=== PATIENT | female | born 1990 | race Caucasian/White ===

== ENCOUNTER 2024-01-20 10:39 | Emergency (ER) | payer OTHER, SELFPAY ==
[2024-01-20 10:44] VITALS: BP 110/66; PULSE 81; TEMP 36.8; O2SAT 98; BMI 24.9
[2024-01-20 11:01] LABS: Clarity Urine CLOUDY (CLEAR); Color Urine DK. ORANGE (YELLOW); Specific Gravity Urine 1.025 (1.005-1.025)
--- NOTE | 2024-01-20 11:06 | CT_ITS ---
The [address] [address] Patient Name: ALEKSANDER MATT MRN: [id number] date: 1990 Sex: F Assigned Patient Location: ER Current Patient Location: ER Accession/Order Number: [id number] Exam Date: 01/20/2024 11:25 Report Date: 01/20/2024 11:44 At the request of: SHAILA HERRERA Procedure: CT abdomen pelvis wo con EXAM: CT abdomen pelvis wo con HISTORY: abdomen and flank pain, urinary symptoms COMPARISON: None. TECHNIQUE: Axial soft tissue windows of the abdomen and pelvis with coronal and sagittal reformats. CT dose reduction technique was used including Automated Exposure Control. Findings: Lack of intravenous contrast limits evaluation. ABDOMEN: The liver, gallbladder, spleen, pancreas, and adrenal glands are unremarkable. There are punctate nonobstructing bilateral renal stones. No renal collecting system or ureteral dilatation. The visualized portions of the bilateral ureters are nondilated. Evaluation of the bowel is unremarkable without evidence of wall thickening or obstruction. The appendix is nondilated. The aorta is normal caliber. No enlarged abdominal lymph nodes or free abdominal fluid. Tiny fat-containing umbilicus hernia. Injection granulomas within the anterior subcutaneous fat. Pelvis: There is mild circumferential bladder wall thickening with adjacent stranding of fat. No bladder calculi. The uterus is present and unremarkable within the limits of CT. No enlarged pelvic lymph nodes or free pelvic fluid. No aggressive sclerotic or lytic osseous lesions. CT/CT abdomen pelvis wo con IMPRESSION: 1. Nonobstructing bilateral renal stones. 2. Mild circumferential bladder wall thickening with adjacent stranding of the fat concerning for cystitis. Electronically authenticated by: SCOTT DRAPER Date: 01/20/2024 11:44
[2024-01-20 11:07] LABS: Bilirubin Urine COLOR INTERFERENCE (NEGATIVE); Blood Urine COLOR INTERFERENCE (NEGATIVE); Glucose Urine UA COLOR INTERFERENCE mg/dL (NEGATIVE); Ketones Urine COLOR INTERFERENCE mg/dL (NEGATIVE); Leukocyte Esterase Urine COLOR INTERFERENCE (NEGATIVE); Nitrite Urine COLOR INTERFERENCE (NEGATIVE); Protein Urine COLOR INTERFERENCE mg/dL (NEG/TRACE); Urine Microscopic Indicated YES; Urobilinogen Urine COLOR INTERFERENCE EU/dL (0.2-1.0); pH Urine COLOR INTERFERENCE (5.0-9.0)
--- NOTE | 2024-01-20 11:10 | ED_ITS ---
HPI HPI - General Adult General Chief complaint: Back Pain/Injury Stated complaint: UTI COMPLAINTS Time Seen by Provider: 01/20/24 10:52 Source: patient Mode of arrival: walk-in Limitations: no limitations History of Present Illness HPI narrative: Patient presents with 3+ days of urinary symptoms - frequency, urgency, discolored urine - along with suprapubic abdominal pain. The next day she developed flank pain bilaterally. She also had nausea and vomiting the last two days. This morning she was able to eat and drink without vomiting. But she still has nausea. She has been taking Azo without any improvement. Related Data Previous Rx's ?Medication ?Instructions ?Recorded levofloxacin 750 mg tablet 750 mg PO DAILY 7 days #7 tabs 01/20/24 phenazopyridine 100 mg tablet 100 mg PO Q8H PRN pain 6 doses #6 01/20/24 (Pyridium) tabs Allergies Allergy/AdvReac Type Severity Reaction Status Date / Time Penicillins AdvReac Mild Verified 01/20/24 10:44 Opioid HPI Opioid Management Most Recent Opioid Data: Last Pain Scale 7 01/20/24 11:23 Last MAR Pain Assessment 01/20/24 11:45 Exam Narrative Exam Narrative: Nurses notes and vital signs reviewed and patient is not hypoxic. afebrile General: Well-appearing and in no apparent distress. Skin: Warm, dry, no pallor noted. No rash to flank or abdomen. Eye: Pupils are equal, round and EOMI. No scleral icterus. Ears, Nose, Mouth, and Throat: Oral mucosa is moist Cardiovascular: Regular Rate and Rhythm without murmur, gallop or rub. Respiratory: No accessory muscle use or respiratory distress. Lungs are clear to auscultation, no wheezing, rales or rhonchi Back: No CVA tenderness Musculoskeletal: normal ROM GI: Abdomen is soft, non-distended. Normal bowel sounds. No masses appreciated. Suprapubic tenderness to palpation. No rebound, guarding, or rigidity noted. Neurological: A&O x4. No cranial nerve dysfunction observed. No truncal ataxia. Moves all extremities. Sensation intact. Psychiatric: Cooperative and interactive. Normal mood and affect. Constitutional Vital Signs, click to edit/add: Last Vital Signs Temp 98.2 F 01/20/24 10:44 Pulse 81 01/20/24 10:44 Resp 18 01/20/24 10:44 BP 110/66 01/20/24 10:44 Pulse Ox 98 01/20/24 10:44 Course Vital Signs Vital signs: Vital Signs Temperature 98.2 F 01/20/24 10:44 Pulse Rate 81 01/20/24 10:44 Respiratory Rate 18 01/20/24 10:44 Blood Pressure 110/66 01/20/24 10:44 Pulse Oximetry 98 01/20/24 10:44 Temperature 98.2 F 01/20/24 10:44 Pulse Rate 81 01/20/24 10:44 Respiratory Rate 18 01/20/24 10:44 Blood Pressure 110/66 01/20/24 10:44 Pulse Oximetry 98 01/20/24 10:44 Medical Decision Making MDM Narrative Medical decision making narrative: Initially the patient declined offer for peripheral IV and I ordered oral medications for her. However the patient later changed her mind and a peripheral IV was placed, blood drawn and sent for testing. She was ordered to receive a liter of normal saline IV fluid, IV Zofran and IV Toradol. Urine was also obtained and sent for testing. She denied chance of -she had TL - and was sent for CT abd/pelvis without contrast to evaluate for ureteral/renal stones and pyelonephritis. Urinalysis is obscured due to the patient's use of Azo but there are signs of acute urinary tract infection and she will be treated accordingly. CT abdomen pelvis reveals mild circumferential bladder wall thickening with adjacent stranding of the fat concerning for cystitis, consistent with the patie nt's clinical picture. No renal or ureteral obstructing stones were noted. There were incidental findings of bilateral renal stones that are nonobstructing. CBC is normal with a negative white blood cell count, CMP was likewise unremarkable with normal renal function and electrolytes. The patient will be discharged home with prescription for ciprofloxacin 500 mg p.o. twice daily as well as a prescription for Pyridium for her suprapubic abdominal pain. Lab Data Lab results reviewed: Yes I reviewed the patient's lab results Labs: Lab Results 01/20/24 01/20/24 Range/Units 10:55 12:00 WBC 7.5 (4.0-11.0) 10^3/uL RBC 3.78 L (4.20-5.40) 10^6/uL Hgb 10.9 L (12.0-16.0) g/dL Hct 33.2 L (36.0-48.0) % MCV 87.8 (81.0-99.0) fL MCH 28.8 (26.7-34.0) pg MCHC 32.8 (29.9-35.2) g/dL RDW 12.9 (11.0-15.0) % Plt Count 193 (150-450) 10^3/uL MPV 10.9 (9.5-13.5) fL Neut % (Auto) 73.8 (43.0-75.0) % Lymph % (Auto) 18.8 L (20.5-60.0) % Shannon % (Auto) 6.5 (1.7-12.0) % Eos % (Auto) 0.4 L (0.9-7.0) % Baso % (Auto) 0.4 (0.2-2.0) % Neut # (Auto) 5.6 (1.4-6.5) 10^3/uL Lymph # (Auto) 1.4 (1.2-3.8) 10^3/uL Shannon # (Auto) 0.5 (0.3-0.8) 10^3/uL Eos # (Auto) 0.0 (0.0-0.7) 10^3/uL Baso # (Auto) 0.0 (0.0-0.1) 10^3/uL Abs Immat Gran (auto) 0.01 (0.00-0.03) 10^3/uL Imm/Tot Granulo (auto) 0.1 (0.0-0.5) % Sodium 140 (136-145) mmol/L Potassium 3.7 (3.5-5.1) mmol/L Chloride 104 (98-107) mmol/L Carbon Dioxide 29.1 (21.0-32.0) mmol/L Anion Gap 10.6 BUN 7.0 (7.0-18.0) mg/dL Creatinine 0.51 L (0.55-1.02) mg/dL Est GFR ( Amer) >60 (>=60) Est GFR (Non-Af Amer) >60 (>=60) BUN/Creatinine Ratio 13.7 Glucose 110 H (74-106) mg/dL Calcium 8.3 L (8.5-10.1) mg/dL Total Bilirubin 0.2 (0.2-1.0) mg/dL AST 12 L (15-37) U/L ALT 16 (14-59) U/L Alkaline Phosphatase 55 (46-116) U/L Total Protein 6.0 L (6.4-8.2) g/dL Albumin 3.2 L (3.4-5.0) g/dL Globulin 2.8 g/dL Albumin/Globulin Ratio 1.1 Urine Color Dk. orange (YELLOW) Urine Clarity Cloudy A (CLEAR) Urine pH Color interference A (5.0-9.0) Ur Specific [place] 1.025 (1.005-1.025) Urine Protein Color interference A (NEG/TRACE) mg/dL Urine Glucose (UA) Color interference A (NEGATIVE) mg/dL Urine Ketones Color interference A (NEGATIVE) mg/dL Urine Occult Blood Color interference A (NEGATIVE) Urine Nitrite Color interference A (NEGATIVE) Urine Bilirubin Color interference A (NEGATIVE) Urine Urobilinogen Color interference A (0.2-1.0) EU/dL Ur Leukocyte Esterase Color interference A (NEGATIVE) Urine RBC 5-10 A (0-2) #/HPF Urine WBC >100 A (NONE SEEN) #/HPF Ur Squamous Epith Cells Moderate A (NONE/RARE) #/LPF Urine Crystals None seen (None Seen) #/HPF Urine Bacteria Large A (NONE SEEN) #/HPF Urine Casts None seen (NONE SEEN) #/LPF Urine Mucus None seen (NONE SEEN) Ur Culture Indicated? Yes Imaging Data CT scan - abdomen: Attestation: I have reviewed the pertinent imaging results. Radiologist's impression: ITS Impressions Abdomen/Pelvis CT 01/20/24 11:06 IMPRESSION: 1. Nonobstructing bilateral renal stones. 2. Mild circumferential bladder wall thickening with adjacent stranding of the fat concerning for cystitis. Electronically authenticated by: SCOTT DRAPER Date: 01/20/2024 11:44 Discharge Plan Discharge Stand Alone Forms: Portal Instructions Chief Complaint: Back Pain/Injury Clinical Impression: UTI (urinary tract infection), Abdominal pain Patient Disposition: Home, Self-Care Time of Disposition Decision: 11:27 Prescriptions / Home Meds: New levofloxacin 750 mg tablet 750 mg PO DAILY 7 Days Qty: 7 0RF phenazopyridine [Pyridium] 100 mg tablet 100 mg PO Q8H PRN (Reason: pain) Qty: 6 0RF Print Language: [place] Instructions: Urinary Tract Infection in Women (ED), Abdominal Pain (ED) Referrals: Physician,Non-Staff, MD [Primary Care Provider] - 1 week
[2024-01-20 11:22] LABS: Bacteria Urine LARGE #/HPF (NONE SEEN); Mucus Urine NONE SEEN (NONE SEEN); Squamous Epithelial Cell Urine MODERATE #/LPF (NONE/RARE); WBC Urine >100 #/HPF (NONE SEEN)
[2024-01-20 11:23] LABS: Cast Seen? NONE SEEN #/LPF (NONE SEEN); Crystals Seen? None Seen #/HPF (None Seen); Urine Culture Indicated YES
[2024-01-20] MEDS: KETOROLAC TROMETHAMINE 30 MG/ML VIAL IVP (11:23)
[2024-01-20] MEDS: ONDANSETRON PF 4 MG/2 ML VIAL IV (11:23)
[2024-01-20] MEDS: 0.9 % SODIUM CHLORIDE 1,000 ML 1000 ML IV (11:23)
[2024-01-20 12:18] LABS: Basophils Percent Auto 0.4 % (0.2-2.0); Eosinophils Percent Auto 0.4 % (0.9-7.0); Hematocrit 33.2 % (36.0-48.0); Hemoglobin 10.9 g/dL (12.0-16.0); Immature Granulocytes Abs Auto 0.01 10^3/uL (0.00-0.03); Immature Granulocytes Pct Auto 0.1 % (0.0-0.5); Lymphocytes Absolute Auto 1.4 10^3/uL (1.2-3.8); Lymphocytes Percent Auto 18.8 % (20.5-60.0); Mean Corpuscular HGB Conc 32.8 g/dL (29.9-35.2); Mean Corpuscular Hemoglobin 28.8 pg (26.7-34.0); Mean Corpuscular Volume 87.8 fL (81.0-99.0); Mean Platelet Volume 10.9 fL (9.5-13.5); Monocytes Absolute Auto 0.5 10^3/uL (0.3-0.8); Monocytes Percent Auto 6.5 % (1.7-12.0); Neutrophils Absolute Auto 5.6 10^3/uL (1.4-6.5); Neutrophils Percent Auto 73.8 % (43.0-75.0); Platelet Count 193 10^3/uL (150-450); Red Blood Count 3.78 10^6/uL (4.20-5.40); Red Cell Distribution Width 12.9 % (11.0-15.0); White Blood Count 7.5 10^3/uL (4.0-11.0)
[2024-01-20 12:32] LABS: Alanine Aminotransferase 16 U/L (14-59); Albumin Globulin Ratio 1.1; Albumin Level 3.2 g/dL (3.4-5.0); Alkaline Phosphatase 55 U/L (46-116); Anion Gap 10.6; Aspartate Amino Transferase 12 U/L (15-37); BUN Creatinine Ratio 13.7; Bilirubin Total 0.2 mg/dL (0.2-1.0); Calcium 8.3 mg/dL (8.5-10.1); Carbon Dioxide 29.1 mmol/L (21.0-32.0); Chloride 104 mmol/L (98-107); Estimated GFR (African America >60 (>=60); Estimated GFR (Non-African Ame >60 (>=60); Globulin 2.8 g/dL; Glucose 110 mg/dL (74-106); Potassium 3.7 mmol/L (3.5-5.1); Sodium 140 mmol/L (136-145)
[2024-01-20 12:54] VITALS: BP 124/76; PULSE 79; O2SAT 98
== END 2024-01-20 13:02 | disposition home or self-care (01) ==
PROVIDERS: Emergency Provider Emergency Medicine
DX: R10.9 Unspecified abdominal pain (principal); N39.0 Urinary tract infection, site not specified
CPT/HCPCS: 36415; 74176; 80053; 81001; 85025; 87086; 87150; 87186; 96374; 96375; 99284

== ENCOUNTER 2024-09-01 07:19 | Outpatient (OUT) | payer OTHER, SELFPAY ==
--- OUTSIDE RECORDS SUMMARY | 2024-09-01 07:23 | XMS_ITS | CCD ---
Author Organization [facility] Care Team Providers Care Network Desktop Support Specialist Name Role Phone PROVIDER, UNKNOWN Unavailable Unavailable AMEYA ROBERSON Unavailable Unavailable HOY ., DR CABRAL Attending Unavailable HOY ., DR CABRAL Admitting Unavailable HOY ., DR CABRAL Primary Care Unavailable HOY ., DR CABRAL Consulting Unavailable HOY ., DR CABRAL Admitting Unavailable HOY ., DR CABRAL Primary Care Unavailable HOY ., DR CABRAL Consulting Unavailable HOY ., DR CABRAL Attending Unavailable Unavailable Primary Care Provider Unavailabl e Allergies Allergy Classification Reported Allergen(s) Allergy Type Date of Onset Reaction(s) Facility (1 source) Penicillins Drug allergy (disorder) 09-28-1992 [facility] Repository Problems Active Problems Problem Classification Problem Date Documented Date Episodic/Chronic Deficiency and other anemia (1 source) Anemia, unspecified; Translations: [ANEMIA UNSPECIFIED] Onset: 12-16-19 Episodic Diabetes mellitus without complication (1 source) Type 1 diabetes mellitus without complications; Translations: [TYPE 1 DM WITHOUT COMPLICATIONS] Onset: 12-16-19 Chronic Diabetes mellitus without complication (1 source) Other abnormal glucose; Translations: [OTHER ABNORMAL GLUCOSE] Onset: 12-16-19 Episodic Disorders of lipid metabolism (1 source) Pure hypercholesterolemia, unspecified; Translations: [PURE HYPERCHOLESTEROLEMIA UNSPEC] Onset: 12-16-19 Chronic Malaise and fatigue (1 source) Other fatigue; Translations: [OTHER FATIGUE] Onset: 12-16-19 Episodic Other gastrointestinal disorders (1 source) Diarrhea, unspecified; Translations: [DIARRHEA UNSPECIFIED] Onset: 12-16-19 Episodic Other upper respiratory disease (1 source) Nasal congestion; Translations: [NASAL CONGESTION] Onset: 10-03-19 Episodic Residual codes; unclassified (4 sources) Insomnia, unspecified; Translations: [INSOMNIA UNSPECIFIED] Onset: 12-10-19 Episodic Unclassified (3 sources) CONTACT W/AND (SUSP) EXPOS COVID-19; Translations: [CONTACT W/AND (SUSP) EXPOS COVID-19] Onset: 10-03-19 Unclassified (1 source) COUGH, UNSPECIFIED; Translations: [COUGH, UNSPECIFIED] Onset: 10-03-19 Past or Other Problems Problem Classification Problem Date Documented Da te Episodic/Chronic Unclassified (1 source) CONTACT W/AND (SUSP) EXPOS COVID-19; Translations: [CONTACT W/AND (SUSP) EXPOS COVID-19] Onset: 09-30-2022 Results Test Name Value Interpretation Reference Range Facil ity H PYLORI ANTIBODY IGGon 11-26 H. PYLORI IGG ABS 0.34 Index Value Normal 0.00-0.79 [facility] Comment on above: Result Comment: Nega tive <0.80 Equivocal 0.80 - 0.89 Positive >0.89 Performed By: #### T 7, RANDLA, LIPA, CMP, LIPID, TSH #### [facility] [address] [place] [address] Dr. Lisa Chong INSULINon 12-10-2022 Insulin 15.6 uIU/mL Normal 2.6-24.9 [facility] Comment on above: Performed By: #### I NSULIN #### [facility] [address] [place] [address] Dr. Lisa Chong AMYLASEon 12-09-2022 Amylase [Catalytic activity/Vol] 59 U/L Normal 25-115 [facility] Comment on above: Performed By: #### T 7, RANDAL, LIPA, CMP, LIPID, TSH #### [facility] [address] [place] [address] Dr. Lisa Chong CBC AUTO DIFFon 12-09-2022 BASO # 0.0 103/ul Normal 0.0-0.1 [facility] Comment on above: Performed By: #### T 7, RANDAL, LIPA, CMP, LIPID, TSH #### [facility] [address] [place] [address] Dr. Lisa Chong Basophils/100 WBC (Bld) 0.5 % Normal 0.2-2.0 [facility] Comment on above: Performed By: #### T 7, RANDAL, LIPA, CMP, LIPID, TSH #### [facility] [address] [place] [address] Dr. Lisa Chong EO # 0.0 103/ul Normal 0.0-0.7 [facility] Comment on above: Performed By: #### T 7, RANDAL, LIPA, CMP, LIPID, TSH #### [facility] [address] [place] [address] Dr. Lisa Chong Eosinophils/100 WBC (Bld) 0.0 % Critically low 0.9-7.0 [facility] Comment on above: Performed By: #### T 7, RANDAL, LIPA, CMP, LIPID, TSH #### [facility] [address] [place] [address] Dr. Lisa Chong Erythrocyte distribution width (RBC) [Ratio] 12.9 % Normal 11.0-15.0 [facility] Comment on above: Performed By: #### T 7, RANDAL, LIPA, CMP, LIPID, TSH #### [facility] [address] [place] [address] Dr. Lisa Chong Hematocrit (Bld) [Volume fraction] 42.7 % Normal 36.0-48.0 [facility] Comment on above: Performed By: #### T 7, RANDAL, LIPA, CMP, LIPID, TSH #### [facility] [address] [place] [address] Dr. Lisa Chong Hemoglobin (Bld) [Mass/Vol] 14.4 g/dL Normal 12.0-16.0 [facility] Comment on above: Performed By: #### T 7, RANDAL, LIPA, CMP, LIPID, TSH #### [facility] [address] [place] [address] Dr. Lisa Chong IG # 0.02 10e3/ul Normal 0.00-0.03 [facility] Comment on above: Performed By: #### T 7, RANDAL, LIPA, CMP, LIPID, TSH #### [facility] [address] [place] [address] Dr. Lisa Chong IG % 0.4 % Normal 0.0-0.5 [facility] Comment on above: Performed By: #### T 7, RANDAL, LIPA, CMP, LIPID, TSH #### [facility] [address] [place] [address] Dr. Lisa Chong LYMPH # 1.6 103/ul Normal 1.2-3.8 [facility] Comment on above: Performed By: #### T 7, RANDAL, LIPA, CMP, LIPID, TSH #### [facility] [address] [place] [address] Dr. Lisa Chong Lymphocytes/100 WBC (Bld) 28.0 % Normal 20.5-60.0 [facility] Comment on above: Performed By: #### T 7, RANDAL, LIPA, CMP, LIPID, TSH #### [facility] [address] [place] [address] Dr. Lisa Chong MANUAL DIFF REQ NO Normal [facility] Comment on above: Performed By: #### T 7, RANDAL, LIPA, CMP, LIPID, TSH #### [facility] [address] [place] [address] Dr. Lisa Chong MCH (RBC) [Entitic mass] 28.3 pg Normal 26.7-34.0 [facility] Comment on above: Performed By: #### T 7, RANDAL, LIPA, CMP, LIPID, TSH #### [facility] [address] [place] [address] Dr. Lisa Chong MCHC (RBC) [Mass/Vol] 33.7 g/dL Normal 29.9-35.2 [facility] Comment on above: Performed By: #### T 7, RANDAL, LIPA, CMP, LIPID, TSH #### [facility] [address] [place] [address] Dr. Lisa Chong MCV (RBC) [Entitic vol] 83.9 fL Normal 81.0-99.0 [facility] Comment on above: Performed By: #### T 7, RANDAL, LIPA, CMP, LIPID, TSH #### [facility] [address] [place] [address] Dr. Lisa Chong MONO # 0.3 103/ul Normal 0.3-0.8 [facility] Comment on above: Performed By: #### T 7, RANDAL, LIPA, CMP, LIPID, TSH #### [facility] [address] [place] [address] Dr. Lisa Chong Monocytes/100 WBC (Bld) 5.2 % Normal 1.7-12.0 [facility] Comment on above: Performed By: #### T 7, RANDAL, LIPA, CMP, LIPID, TSH #### [facility] [address] [place] [address] Dr. Lisa Chong NEUT # 3.7 103/ul Normal 1.4-6.5 [facility] Comment on above: Performed By: #### T 7, RANDAL, LIPA, CMP, LIPID, TSH #### [facility] [address] [place] [address] Dr. Lisa Chong Neutrophils/100 WBC (Bld) 65.9 % Normal 43.0-75.0 [facility] Comment on above: Performed By: #### T 7, RANDAL, LIPA, CMP, LIPID, TSH #### [facility] [address] [place] [address] Dr. Lisa Chong Platelet mean volume (Bld) [Entitic vol] 10.1 fL Normal 9.5-13.5 [facility] Comment on above: Performed By: #### T 7, RANDAL, LIPA, CMP, LIPID, TSH #### [facility] [address] [place] [address] Dr. Lisa Chong PLT 292 103/ul Normal 150-450 [facility] Comment on above: Performed By: #### T 7, RANDAL, LIPA, CMP, LIPID, TSH #### [facility] [address] [place] [address] Dr. Lisa Chong RBC 5.09 106/ul Normal 4.20-5.40 [facility] Comment on above: Performed By: #### T 7, RANDAL, LIPA, CMP, LIPID, TSH #### [facility] [address] [place] [address] Dr. Lisa Chong WBC 5.6 103/ul Normal 4.0-11.0 [facility] Comment on above: Performed By: #### T 7, RANDAL, LIPA, CMP, LIPID, TSH #### [facility] [address] [address] [address] Lisa Chong FREE THYROXINE INDEX T7on FTI 3.42 Normal 1.30-4.50 [facility] Comment on above: Performed By: #### T 7, RANDAL, LIPA, CMP, LIPID, TSH #### [facility] [address] [address] [address] Lsia Chong T3U 36.0 % Normal 30.0-39.0 [facility] Comment on above: Performed By: #### T 7, RANDAL, LIPA, CMP, LIPID, TSH #### [facility] [address] [place] [address] Dr. Lisa Chong T4 [Mass/Vol] 9.50 ug/dL Normal 4.80-13.90 [facility] Comment on above: Performed By: #### T 7, RANDAL, LIPA, CMP, LIPID, TSH #### [facility] [address] [address] [address] Lisa Chong GLYCOHEMOGLOBIN A1Con 2022 ADA RECOMMENDATION SEE BELOW Normal [facility] Comment on above: Result Comment: ADA RECOMMENDED LIMIT 4.0 - 6.0 ADA THERAPEUTIC TARGET < 7.0 ACTION SUGGESTED > 7.0 Performed By: #### A 1C #### [facility] [address] [address] [address] Lisa Chong Glucose [Mass/Vol] 103 mg/dL Normal [facility] Comment on above: Performed By: #### A 1C #### [facility] [address] [place] [address] Dr. Lisa Chong HbA1c (Bld) [Mass fraction] 5.2 % Normal 4.5-6.2 [facility] Comment on above: Performed By: #### A 1C #### [facility] [address] [place] [address] Dr. Lisa Chong IRONon 12-09-2022 Iron [Mass/Vol] 157.0 ug/dL Normal 50.0-170.0 [facility] Comment on above: Performed By: #### T 7, RANDAL, LIPA, CMP, LIPID, TSH #### [facility] [address] [address] [address] Lisa Chong LIPASEon 12-09-2022 Lipase [Catalytic activity/Vol] 125.0 U/L Normal 73.0-393.0 [facility] Comment on above: Performed By: #### T 7, RANDAL, LIPA, CMP, LIPID, TSH #### [facility] [address] [address] [address] Lisa Chong LIPID PROFILEon 12-09-2022 CHOL-HDL RATIO NORM SEE BELOW Normal [place] Comment on above: Result Comment: 3.3 - 4.4 LOW RISK 4.4 - 7.1 AVERAGE RISK 7.1 - 11.0 MODERATE RISK >11.0 HIGH RISK Performed By: #### T 7, RANDAL, LIPA, CMP, LIPID, TSH #### [facility] [address] [place] [address] Dr. Lisa Chong Cholesterol [Mass/Vol] 198 mg/dL Normal <=200 [facility] Comment on above: Performed By: #### T 7, RANDAL, LIPA, CMP, LIPID, TSH #### [facility] [address] [address] [address] Lisa Chong Cholesterol in HDL [Mass/Vol] 56 mg/dL Normal 40-60 [facility] Comment on above: Performed By: #### T 7, RANDAL, LIPA, CMP, LIPID, TSH #### [facility] [address] [address] [address] Lisa Chong Cholesterol in LDL [Mass/Vol] 123.4 mg/dL Normal [facility] Comment on above: Performed By: #### T 7, RANDAL, LIPA, CMP, LIPID, TSH #### [facility] [address] [address] [address] Lisa Chong Cholesterol.total/Cho lesterol in HDL [Mass ratio] 3.5 {ratio} Normal [facility] Comment on above: Performed By: #### T 7, RANDAL, LIPA, CMP, LIPID, TSH #### [facility] [address] [address] [address] Lisa Chong HDL NORMAL > or = 60 mg/dl - LO W CARDIOVASCULAR RISK <40 mg/dl - HIGH CARDIOVASCULAR RISK Normal [facility] Comment on above: Performed By: #### T 7, RANDAL, LIPA, CMP, LIPID, TSH #### [facility] [address] [address] [address] Lisa Chong LDL CALC NORMAL SEE BELOW Normal [facility] Comment on above: Result Comment: <100 mg/dl OPTIMAL 100 - 129 mg/dl NEAR OR ABOVE OPTIMAL 130 - 159 mg/dl BORDERLINE HIGH 160 - 189 mg/dl HIGH >190 mg/dl VERY HIGH Performed By: #### T 7, RANDAL, LIPA, CMP, LIPID, TSH #### [facility] [address] [address] [address] Lisa Chong Triglyceride [Mass/Vol] 93 mg/dL Normal <=150 [facility] Comment on above: Performed By: #### T 7, RANDAL, LIPA, CMP, LIPID, TSH #### [facility] [address] [address] [address] Lisa Chong VLDL CALC 18.6 mg/dL Normal [facility] Comment on above: Performed By: #### T 7, RANDAL, LIPA, CMP, LIPID, TSH #### [facility] [address] [address] [address] Lisa Chong PROF 14(COMP METB)on 023 Albumin [Mass/Vol] 4.6 g/dL Normal 3.4-5.0 [facility] Comment on above: Performed By: #### T 7, RANDAL, LIPA, CMP, LIPID, TSH #### [facility] [address] [address] [address] Lisa Chong Albumin/Globulin [Mass ratio] 1.3 {ratio} Normal [facility] Comment on above: Performed By: #### T 7, RANDAL, LIPA, CMP, LIPID, TSH #### [facility] [address] [place] [address] Dr. Lisa Chong ALP [Catalytic activity/Vol] 63 U/L Normal 46-116 [facility] Comment on above: Performed By: #### T 7, RANDAL, LIPA, CMP, LIPID, TSH #### [facility] [address] [address] [address] Lisa Chong ALT [Catalytic activity/Vol] 18 U/L Normal 14-59 [facility] Comment on above: Performed By: #### T 7, RANDAL, LIPA, CMP, LIPID, TSH #### [facility] [address] [address] [address] Lisa Chong Anion gap [Moles/Vol] 10.3 mmol/L Normal [facility] Comment on above: Performed By: #### T 7, RANDAL, LIPA, CMP, LIPID, TSH #### [facility] [address] [place] [address] Dr. Lisa Chong AST [Catalytic activity/Vol] 13 U/L Critically low 15-37 [facility] Comment on above: Performed By: #### T 7, RANDAL, LIPA, CMP, LIPID, TSH #### [facility] [address] [address] [address] Lisa Chong Bilirubin [Mass/Vol] 0.6 mg/dL Normal 0.2-1.0 [facility] Comment on above: Performed By: #### T 7, RANDAL, LIPA, CMP, LIPID, TSH #### [facility] [address] [place] [address] Dr. Lisa Chong Calcium [Mass/Vol] 9.6 mg/dL Normal 8.5-10.1 [facility] Comment on above: Performed By: #### T 7, RANDAL, LIPA, CMP, LIPID, TSH #### [facility] [address] [place] [address] Dr. Lisa Chong Chloride [Moles/Vol] 102 mmol/L Normal 98-107 [facility] Comment on above: Performed By: #### T 7, RANDAL, LIPA, CMP, LIPID, TSH #### [facility] [address] [address] [address] Lisa Chong CO2 [Moles/Vol] 28.7 mmol/L Normal 21.0-32.0 [facility] Comment on above: Performed By: #### T 7, RANDAL, LIPA, CMP, LIPID, TSH #### [facility] [address] [address] [address] Lisa Chong Creatinine [Mass/Vol] 0.59 mg/dL Normal 0.55-1.02 [facility] Comment on above: Performed By: #### T 7, RANDAL, LIPA, CMP, LIPID, TSH #### [facility] [address] [place] [address] Dr. Lisa Chong EGFR-AF ANGUILLAN >60 Normal >=60 [facility] Comment on above: Performed By: #### T 7, RANDAL, LIPA, CMP, LIPID, TSH #### [facility] [address] [place] [address] Dr. Lisa Chong EGFR-NON AF ANGUILLAN >60 Normal >=60 [facility] Comment on above: Performed By: #### T 7, RANDAL, LIPA, CMP, LIPID, TSH #### [facility] [address] [place] [address] Dr. Lisa Chong Globulin (S) [Mass/Vol] 3.5 g/dL Normal [facility] Comment on above: Performed By: #### T 7, RANDAL, LIPA, CMP, LIPID, TSH #### [facility] [address] [place] [address] Dr. Lisa Chong Glucose [Mass/Vol] 96 mg/dL Normal 74-106 [facility] Comment on above: Performed By: #### T 7, RANDAL, LIPA, CMP, LIPID, TSH #### [facility] [address] [place] [address] Dr. Lisa Chong Potassium [Moles/Vol] 4.0 mmol/L Normal 3.5-5.1 [facility] Comment on above: Performed By: #### T 7, RANDAL, LIPA, CMP, LIPID, TSH #### [facility] [address] [place] [address] Dr. Lisa Chong Protein [Mass/Vol] 8.1 g/dL Normal 6.4-8.2 [facility] Comment on above: Performed By: #### T 7, RANDAL, LIPA, CMP, LIPID, TSH #### [facility] [address] [place] [address] Dr. Lisa Chong Sodium [Moles/Vol] 137 mmol/L Normal 136-145 [facility] Comment on above: Performed By: #### T 7, RANDAL, LIPA, CMP, LIPID, TSH #### [facility] [address] [place] [address] Dr. Lisa Chong Urea nitrogen [Mass/Vol] 14.0 mg/dL Normal 7.0-18.0 [facility] Comment on above: Performed By: #### T 7, RANDAL, LIPA, CMP, LIPID, TSH #### [facility] [address] [place] [address] Dr. Lisa Chong Urea nitrogen/Creatinine [Mass ratio] 23.7 mg/mg Normal [facility] Comment on above: Performed By: #### T 7, RANDAL, LIPA, CMP, LIPID, TSH #### [facility] [address] [place] [address] Dr. Lisa Chong TSHon 12-09-2022 TSH 0.713 uIU/mL Normal 0.358-3.740 [facility] Comment on above: Performed By: #### T 7, RANDAL, LIPA, CMP, LIPID, TSH #### [facility] [address] [place] [address] Dr. Lisa Chong [facility]on SARS-CoV-2 (COVID-19) RNA DAVIS+probe Ql (Unsp spec) Not detected Normal NOT DETECTED [facility] Comment on above: Result Comment: When diagnostic testing is negative, the possibility of a false negative should be considered in the context of a patient's recent exposures and the presence of clinical signs and symptoms consistent with SARS-CoV-2. This test is not yet approved or cleared by the [place] FDA. When there are no FDA-approved or cleared tests available, and other criteria are met, FDA can make tests available under an emergency access mechanism called an Emergency Use Authorization (EUA). The EUA for this test is supported by the [place] Director of Health and Human Service's declaration that circumstances exist to justify the emergency use of in vitro diagnostics for the detection and/or diagnosis of the virus that causes COVID-19. This EUA will remain in effect for the duration of the COVID-19 declaration justifying emergency of IVDs, unless it is terminated or revoked by the FDA (after which the test may no longer be used). Performed By: #### C VDTB #### [facility] [address] [place] [address] Dr. Lisa Chong INFLUENZA A AND B AGon 09-30 [facility] SEE BELOW Normal [facility] Comment on above: Result Comment: Nega tive for Flu A protein angiten. Infection due to Flu A cannot be ruled out. Flu A angiten in the sample may be below the detection limit of the test. Performed By: #### I NFLUAB #### [facility] [address] [place] [address] Dr. Lisa [facility] SEE BEL[facility] Normal [facility] Comment on above: Result Comment: Nega tive for Flu B protein antigen. Infection due to Flu B cannot be ruled out. Flu B antigen in the sample may be below the detection limit of the test. Performed By: #### I NFLUAB #### [facility] [address] [place] [address] Dr. Lisa Chong INFLUENZA A AG Negative Normal NEGATIVE SEE COMMENT [facility] Comment on above: Performed By: #### I NFLUAB #### [facility] [address] [place] [address] Dr. Lisa Chong INFLUENZA B AG Negative Normal NEGATIVE SEE COMMENT [facility] Comment on above: Performed By: #### I NFLUAB #### [facility] [address] [place] [address] Dr. Lisa Chong Operative Reporton 0 Operative Report [id number] .00CD:127 Normal [facility] Lab Reportson 06-13-2020 Lab Reports [id number] .00CD:127 Normal [facility] Formson 05-22-2020 Forms [id number]#1 .00CD:127 Normal [facility] Forms [id number]. 00CD:127 Normal [facility] Physician Referralon 020 Physician Referral [id number]#1. 00CD:127 Normal [facility] Ambulatory Clinical Summaryo n 05-21-2020 Ambulatory Clinical Summary {[id number]}CD:[id number] [facility] Ambulatory Clinical Summary {[id number]}CD:[id number] [facility] Hospital Ambulatory Clinical Summary {[id number] [facility] Patient Educationon 05-21-20 20 Patient Education Family Medicine Urinary Frequency The number of times a normal person urinates depends upon how much liquid they take in and how much liquid they are losing. If the temperature is hot and there is high humidity then the person will sweat more and usually breathe a little more frequently. These factors decrease the amount of frequency of urination that would be considered normal. The amount you drink is easily determined, but the amount of fluid lost is sometimes more difficult to calculate. Fluid is lost in two ways: ? Sensible fluid loss is usually measured by the amount of urine that you get rid of. Losses of fluid can also occur with diarrhea. ? Insensible fluid loss is more difficult to measure. It is caused by evaporation. Insensible loss of fluid occurs through breathing and sweating. It usually ranges from a little less than a quart to a little more than a quart of fluid a day. In normal temperatures and activity levels the average person may urinate 4 to 7 times in a 24-hour period. Needing to urinate more often than that could indicate a problem. If one urinates 4 to 7 times in 24 hours and has large volumes each time, that could indicate a different problem from one who urinates 4 to 7 times a day and has small volumes. The time of urinating is also an important. Most urinating should be done during the waking hours. Getting up at night to urinate frequently can indicate some problems. CAUSES The bladder is the organ in your lower abdomen that holds urine. Like a balloon, it swells some as it fills up. Your nerves sense this and tell you it is time to head for the bathroom. There are a number of reasons that you might feel the need to urinate more often than usual. They include: ? Urinary tract infection. This is usually associated with other signs such as burning when you urinate. ? In men, problems with the prostate (a walnut-size gland that is located near the tube that carries urine out of your body). There are two reasons why the prostate can cause an increased frequency of urination: ? An enlarged prostate that does not let the bladder empty well. If the bladder only half empties when you urinate then it only has half the capacity to fill before you have to urinate again. ? The nerves in the bladder become more hypersensitive with an increased size of the prostate even if the bladder empties completely. ? . ? Obesity. Excess weight is more likely to cause a problem for women more than for men. ? Bladder stones or other bladder problems. ? Caffeine. ? Alcohol. ? Medications. For example, drugs that help the body get rid of extra fluid (diuretics ) increase urine production. Some other medicines must be taken with lots of fluids. ? Muscle or nerve weakness. This might be the result of a spinal cord injury, a stroke, multiple sclerosis or Parkinson's disease. ? Long-standing diabetes can decrease the sensation of the bladder. This loss of sensation makes it harder to sense the bladder needs to be emptied. Over a period of years the bladder is stretched out by constant overfilling. This weakens the bladder muscles so that the bladder does not empty well and has less capacity to fill with new urine. ? Interstitial cystitis (also called painful bladder syndrome). This condition develops because the tissues that line the insider of the bladder are inflamed (inflammation is the body's way of reacting to injury or infection). It causes pain and frequent urination. It occurs in women more often than in men. DIAGNOSIS ? To decide what might be causing your urinary frequency, your healthcare provider will probably: ? Ask about symptoms you have noticed. ? Ask about your overall health. This will include questions about any medications you are taking. ? Do a physical examination. ? Order some tests. These might include: ? A blood test to check for diabetes or other health issues that could be contributing to the problem. ? Urine testing. This could measure the flow of urine and the pressure on the bladder. ? A test of your neurological system (the brain, spinal cord and nerves). This is the system that senses the need to urinate. ? A bladder test to check whether it is emptying completely when you urinate. ? Cytoscopy. This test uses a thin tube with a tiny camera on it. It offers a look inside your urethra and bladder to see if there are problems. ? Imaging tests. You might be given a contrast dye and then asked to urinate. X-rays are taken to see how your bladder is working. TREATMENT It is important for you to be evaluated to determine if the amount or frequency that you have is unusual or abnormal. If it is found to be abnormal the cause should be determined and this can usually be found out easily. Depending upon the cause treatment could include medication, stimulation of the nerves, or surgery. There are not too many things that you can do as an individual to change your urinary frequency. It is important that you balance the amount of fluid intake needed to compensate for your activity and the temperature. Medical problems will be diagnosed and taken care of by your physician. There is no particular bladder training such as Kegel's exercises that you can do to help urinary frequency. This is an exercise this is usually done for people who have leaking of urine when they laugh cough or sneeze. HOME CARE INSTRUCTIONS ? Take any medications your healthcare provider prescribed or suggested. Follow the directions carefully. ? Practice any lifestyle changes that are recommended. These might include: ? Drinking less fluid or drinking at different times of the day. If you need to urinate often during the night, for example, you may need to stop drinking fluids early in the evening. ? Cutting down on caffeine or alcohol. They both can make you need to urinate more often than normal. Caffeine is found in coffee, tea and sodas. ? Losing weight, if that is recommended. ? Keep a journal or a log. You might be asked to record how much you drink and when and when you feel the need to urinate. This will also help evaluate how well the treatment provided by your physician is working. SEEK MEDICAL CARE IF: ? Your need to urinate often gets worse. ? You feel increased pain or irritation when you urinate. ? You notice blood in your urine. ? You have questions about any medications that your healthcare provider recommended. ? You notice blood, pus or swelling at the site of any test or treatment procedure. ? You develop a fever of more than 100.5? F (38.1? C). SEEK IMMEDIATE MEDICAL CARE IF: You develop a fever of more than 102.0? F (38.9? C). Document Released: 07/11/2010 Document Revised: 12/06/2012 Document Reviewed: 07/11/2010 ExitCare? Patient Information ?2013 [employer]. Normal [facility] Urology Office/Clinic Noteon 05-21-2020 Urology Office/Clinic Note Chief Complaint Referral for incomplete bladder emptying HPI Staff Referral for incomplete bladder emptying. Pt had a renal US done 04/13/2020 that showed unremarkable appearance of the kidneys and bladder. No hydronephrosis was noted. Prevoid bladder volume was 450ml and postvoid residual was 123ml. Pt states that she has been treated multiple times for UTI symptoms throughout her life but in the past year her symptoms have intensified. She states that her urinary symptoms are happening much more frequently. She has just finished a week of Erythromycin because she had strep throat. Her PVR today was 25ml. Dysuria: not at this time Incomplete bladder emptying: pt states that she feels fine right now but if she tries to drink a large amount of water or any fluid she will feel like she is not emptying. PVR today was 25ml. Hematuria: pt states yes and the last time was in March. Frequency: yes Urgency: yes Nocturia: pt states up to 5x nightly Stream: moderate and states that she definitely has hesitancy and often has to strain Leaking: yes Post void dripping: no Wearing pads/ Depends: yes changes often during the day Urge incontinence: no Stress incontinence: yes Incontinence without Sensory Awareness: no Abdominal pain: yes pressure in lower abdomen at times Flank pain: pt states yes for the past year off and on she will have bilateral pain and at times i will radiate around to her rib cage as a sharp intense pain Sexual complaints: no History of Present Illness Reviewed UA. 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 There have been no associated fever and chills. Pt. denies any pain/burning with urination at this time. Review of Systems PHQ Score Initial Depression Screen Score: 0 ROS - Provider Constitutional: denies weight loss, denies hot flashes. Eyes: denies eye problems. Gastrointestinal: denies nausea, denies vomiting. Cardiovascular: denies chest pain or angina. Integumentary: no dryness Musculoskeletal: denies musculoskeletal symptoms. ENMT: denies otolaryngeal symptoms. Respiratory: no shortness of breath. Heme/Lymph: denies easy bleeding tendency, denies easy bruising tendency. Psychiatric: no confusion, no anxiety. Genitourinary: denies vaginal discharge, mild incontinence, denies dysuria, mild hematuria, moderate urinary frequency, denies amenorrhea, denies menorrhagia, denies abnormal bleeding, denies pelvic pain, denies genital sores, and denies decreased libido. Physical Exam Vitals & Measurements HR: 70(Peripheral) RR: 16 BP: 129/80 HT: 164 cm HT: 164.0 cm WT: 64 kg WT: 64.0 kg BMI: 23.8 General Appearance: alert , no acute distress, well nourished, well developed female. Head: normocephalic . Eyes: normal orbit and globe. ENMT: normal examination of external ears. Chest: Lungs CTA, respirations non labored . Cardiovascular: regular rate and rhythm. Abdomen: soft, non distended, no tenderness, no mass or organomegaly, no hernia. Genitourinary: bladder nonpalpable, no flank tenderness. CVA tenderness, left more than right. Lymph Nodes: unremarkable palpation of the cervical area. Skin: warm, dry, no bruising. Psychiatric: cooperative, affect appropriate for age, normal judgement, euthymic mood. Assessment/Plan 1. Feeling of incomplete bladder emptying (R39.14: Feeling of incomplete bladder emptying) Pt had a renal US done 04/13/2020 that showed unremarkable appearance of the kidneys and bladder. No hydronephrosis was noted. Prevoid bladder volume was 450ml and postvoid residual was 123ml. PVR today 25ml. Will schedule Cysto with UD under a mac. The procedure risks, benefits, details, and treatment alternatives have been discussed with the patient. These include bleeding, infection, recurrent scar in over 50%, need for repeat dilation or other procedures, no symptom relief with dilation, among others. Full informed consent has been obtained. Will order Local anesthesia. 2. Recurrent UTI (N39.0: Urinary tract infection, site not specified) Pt. states that she has been treated multiple times for UTI symptoms throughout her life but in the past year her symptoms have intensified. Will keep pt. on a low dose antibiotic qd. Script for Macrobid 100mg qd #60 sent to [facility] in [place]. Discussed the medication side effects, and the patient will monitor closely for these, as well as for symptom improvement. If severe side effects occur, the medication should be stopped and the office notified. 3. Nocturia (R35.1: Nocturia) 5x/night. 4. Microscopic hematuria (R31.29: Other microscopic hematuria) UA today shows a small amount of blood. 5. Bilateral flank pain (R10.9: Unspecified abdominal pain) Ongoing since the past yr. Pt. states off and on bilateral pain that radiates around her rib cage. seems to be from chronic bladder infection vs. ureteral stones. 6. Mixed incontinence (N39.46: Mixed incontinence) Intermittent urge and stress incontinence. Pt. states that she changes her pads often throughout the day. Will start pt. on Tolterodine 2mg Bid. All questions/concerns were discussed. Pt. to call the office if sheencounters any issues prior. Pt. acknowledges understanding. I have reviewed the previous health record information and history for this pt. from Dr. Álvarez. Follow-up With When Contact Information PREETI ZHOU, Jimbo [facility] [address] [place] [address]- [phone] Additional Instructions: Patient Education Urinary Frequency Paula Espinal , personally scribed for Dr. Álvraez on 05/21/2020 13:37:16. . Documentation recorded by the scribe, Paula Guerra, accurately reflects the services(s) I performed and decisions made by me. Authenticated by Dr. Álvarez on 05/21/2020 13:42:30. Problem List/Past Medical History Ongoing Asthma Bilateral flank pain HSV-1 infection Hyperthyroidism Microscopic hematuria Mixed incontinence Nocturia Recurrent UTI Stress incontinence Urge incontinence Historical No qualifying data Procedure/Surgical History Bilateral tubal ligation. Medications No active medications Allergies penicillin (Breathing) Social History Alcohol - Denies Alcohol Use, 05/21/2020 Tobacco - Denies Tobacco Use, 05/21/2020 Former smoker, quit more than 30 days ago Tobacco Use:. Cigarettes, 05/21/2020 Family History Alcoholism: Mother and Father. Cancer: Mother. Epilepsy: Mother. Heart disease: Mother and Father. Lab Results Ambulatory Point of Care Results Bilirubin Urine Dipstick: Negative (05/21/20 12:34:00) Blood Urine Dipstick: 1+ Small (05/21/20 12:34:00) Glucose Urine Dipstick: Negative (05/21/20 12:34:00) Ketones Urine Dipstick: Negative (05/21/20 12:34:00) Leukocytes Urine Dipstick: Negative (05/21/20 12:34:00) Nitrite Urine Dipstick: Negative (05/21/20 12:34:00) Protein Urine Dipstick: Negative (05/21/20 12:34:00) Specific [place] Urine Dipstick: 1.015 (05/21/20 12:34:00) Urine Appearance Urine Dipstick: Clear (05/21/20 12:34:00) Urine Color Urine Dipstick: Yellow (05/21/20 12:34:00) Urobilinogen Urine Dipstick: Normal 0.2-1 EU/dl (05/21/20 12:34:00) pH Urine Dipstick: 6.5 (05/21/20 12:34:00) Normal [facility] Comment on above: Result Comment: Elec tronically Signed By: Jimbo ÁLVAREZ MD\.br\Date and Time Signed: 05/21/20 13:42 EDT\.br\Electronically Co-Signed By: Paula Guerra MA\.br\Date and Time Co-Signed: 05/21/20 13:37 EDT Encounters Encounter Date Encounter Type Care Provider Facility Start: 08-30-2024 End: 08-30-2024 Bamboo flowsheet Alberto Amadou DO Work Phone: [facility] Start: 08-30-2024 End: 08-30-2024 Bamboo flowsheet Alberto Amadou DO Work Phone: [facility] Start: 12-09-2022 End: 12-10-[address] MISHA BLAKE . Facility:[facility] Start: 09-30-2022 End: 09-30-[address] MISHA BLAKE . Facility:[facility] Start: 06-10-2018 End: 06-10-2018 Emergency department patient visit UNKNOWN PROVIDER Facility:[facility] Procedures Date Procedure Procedure Detail Performing Clinician Start: 06-10-2018 DISCHARGE PATIENT UNKNO WN PROVIDER Plan of Treatment Date Care Activity Detail Author Start: 08-30-2024 End: 08-30-2024 Patient encounter procedure 08/30/2024 1:10 PM EST Office Visit [facility] [address] [place] [id number] Alberto Tobar, DO [address] [place] [address] Arrived [facility] Comment on above: Arrived Payers Date Payer Category Payer Medicaid (Managed Care) [facility] MEDICAID [id number] 2018 Unknown [id number] 1991 Unknown [id number] 1991 Unknown [id number] 1959 Unknown [id number] Social History Date Type Detail Facility Tobacco smoking stat [facility] Tobacco smoking consumption unknown [facility] Start: 1990 Sex assigned at Female [facility] Start: 08-05-2024 Gender identity Identifies as female gender (finding) [facility] Start: 08-05-2024 Sexual orientation Heterosexual (fin ding) [facility] Summary Purpose Family History No Family History Records FoundNo Family History Records FoundNo Family History Records Found Advance Directives No Advanced Directives Records FoundNo Advanced Directives Records FoundNo Advanced Directives Records Found Additional Source Comments INFORMATION SOURCE (unrecogn ized section and content) DATE CREATED AUTHOR 07/12/2018 [facility] [employer] [facility] DATE CREATED AUTHOR AUTHOR'S ORGANIZ ATION 06/18/2020 [facility] DATE CREATED AUTHOR AUTHOR'S ORGANIZ ATION 12/16/2022 [facility] FOR RECORDS PERTAINING TO PATIENTS WHO ARE OR HAVE BEEN ENROLLED IN A CHEMICAL DEPENDENCY/SUBSTANCEABUSE PROGRAM, SOME INFORMATION MAY BE OMITTED. This clinical summary was aggregated from multiple sources. Caution should be exercised in using it in the provision of clinical care. This summary normalizes information from multiple sources, and as a consequence, information in this document may materially change the coding, format and clinical context of patient data. In addition, data may be omitted in some cases. CLINICAL DECISIONS SHOULD BE BASED ON THE PRIMARY CLINICAL RECORDS. [facility] [employer]. provides no warranty or guarantee of the accuracy or completeness of information in this document.
[2024-09-01 08:12] LABS: Estimated Average Glucose 100 mg/dL; Glycohemoglobin A1C 5.1 % (4.5-6.2)
[2024-09-01 08:59] LABS: Free T3 3.16 pg/mL (2.18-3.98); Glucose 79 mg/dL (74-106); Thyroid Stimulating Hormone 1.466 uIU/mL (0.358-3.740)
[2024-09-01 09:32] LABS: Free T4 0.98 ng/dL (0.76-1.46)
[2024-09-02 04:07] LABS: Progesterone 17.6 ng/mL (.); Sex Horm Binding Glob, Serum 76.2 nmol/L (24.6-122.0)
[2024-09-02 08:13] LABS: C-Peptide, Serum 2.1 ng/mL (1.1-4.4); Insulin 10.2 uIU/mL (2.6-24.9)
[2024-09-02 15:11] LABS: Thyroglobulin Antibody <1.0 IU/mL (0.0-0.9); Thyroid Peroxidase (TPO) Ab <9 IU/mL (0-34)
[2024-09-03 11:21] LABS: Free Testosterone(Direct) 1.3 pg/mL (0.0-4.2); Testosterone 34 ng/dL (8-60)
[2024-09-05 19:18] LABS: Estrone, Serum 58 pg/mL (27-231)
[2024-09-07 18:07] LABS: Reverse T3, Serum 11.9 ng/dL (9.2-24.1)
== END 2024-09-01 07:20 | disposition home or self-care (01) ==
LOC: LAB 07:21
PROVIDERS: Visit Provider Obstetrics & Gynecology
DX: E34.9 Endocrine disorder, unspecified (principal)
CPT/HCPCS: 36415; 82306; 82530; 82627; 82670; 82679; 82728; 82947; 83036; 83525; 84144; 84260; 84270; 84402; 84403; 84432; 84436; 84439; 84443; 84481; 84482; 84681; 86376; 86800

== ENCOUNTER 2024-11-29 18:37 | Outpatient (REF) | payer OTHER, SELFPAY ==
--- OUTSIDE RECORDS SUMMARY | 2024-11-29 18:41 | XMS_ITS | CCD ---
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 Role Phone PROVIDER, UNKNOWN Unavailable Unavailable [...] CABRAL Attending Unavailable Unavailable Primary Care Provider UnavailMARILYN Jules Attending Unavailable MARILYN TOBAR Attending Unavailable Allergies Allergy Classification Reported Allergen(s) Allergy Type Date of Onset Reaction(s) Facility (1 source) Penicillins Drug allergy (disorder) 3 [facility] Repository (6 sources) Penicillins Propensity to adverse reactions 0 Anaphylaxis, Hives, Shortness of breath, Wheezing [facility] Work Phone: Medications Current Medications Medication Drug Class(es) Dates Sig (Normalized) Sig (Original) Ethinyl Estradiol / Levonorgestrel (6 sources) Progestin, Estrogen, Progestin-containin g Intrauterine Device Start: 08-30-2024 End: 08-30-2025 take 1 tablet by mouth once daily, then take 1 tablet by mouth once daily levonorgestrel-e thinyl estradiol (Jolessa) 0.15-0.03 MG tablet Indications: Hormone imbalance Take 1 tablet by mouth Daily Take 1 tablet by mouth daily 84 tablet 3 08/30/2024 08/30/2025 Active magnesium oxide 400 mg oral tablet (2 sources) Start: 10-06-2024 End: 11-05-2024 take 1 tablet by mouth once daily magnesium oxide (Mag-Ox) 400 MG tablet Indications: Hormone imbalance , Mood changes Take 1 tablet (400 mg) by mouth Daily 30 tablet 11 10/06/2024 11/05/2024 Active Completed/Discontinued Medications Medication Drug Class(es) Dates Sig (Normalized) Sig (Original) valACYclovir 500 mg oral tablet (6 sources) Herpesvirus Nucleoside Analog DNA Polymerase Inhibitor, Herpes Simplex Virus Nucleoside Analog DNA Polymerase Inhibitor, Herpes Zoster Virus Nucleoside Analog DNA Polymerase Inhibitor Start: 08-30-2024 End: 08-30-2025 take 1 tablet by mouth once daily valACYclovir (Valtrex) 500 MG tablet Indications: H/O herpes genitalis Take 1 tablet (500 mg) by mouth Daily 30 tablet 11 08/30/2024 10/06/2024 Discontinued Problems Active Problems Problem Classification Problem Date [...] fatigue; Translations: [OTHER FATIGUE] Onset: 12-16-19 Episodic Mood disorders (4 sources) Disturbance in mood; Translations: [Emotional lability] Onset: 10-06-1910-06-2024 Episodic Other endocrine disorders (8 sources) Disorder of endocrine system; Translations: [Endocrine disorder, unspecified] Onset: 10-06-1908-30-2024 Episodic Other gastrointestinal disorders (1 source) Diarrhea, unspecified; Translations: [DIARRHEA UNSPECIFIED] Onset: 12-16-19 Episodic Other infections; including parasitic (2 sources) History of sexually transmitted disease; Translations: [Personal history of other infectious and parasitic diseases] 08-30-2024 Episodic Other upper respiratory disease (1 source) Nasal congestion; Translations: [NASAL CONGESTION] Onset: 10-03-19 Episodic Residual codes; unclassified (4 sources) Insomnia, unspecified; Translations: [INSOMNIA UNSPECIFIED] Onset: 12-10-19 Episodic Residual codes; unclassified (6 sources) Amnesia; Translations: [Other amnesia] Onset: 10-06-19 25 08-30-2024 Episodic Unclassified (3 sources) CONTACT W/AND (SUSP) EXPOS COVID-19; Translations: [CONTACT W/AND (SUSP) EXPOS COVID-19] Onset: 10-03-19 Unclassified (1 source) COUGH, UNSPECIFIED; Translations: [COUGH, UNSPECIFIED] Onset: 10-03-19 Past or Other Problems Problem Classification Problem Date Documented Da te Episodic/Chronic Unclassified (1 source) CONTACT W/AND (SUSP) EXPOS COVID-19; Translations: [CONTACT W/AND (SUSP) EXPOS COVID-19] Onset: 09-30-2022 Results Test Name Value Interpretation Reference Range Facility [facility] HEMOGLOBIN A1Con 024 Glucose [Mass/Vol] 100 mg/dL [facility] HbA1c (Bld) [Mass fraction] 5.1 % 4.5 - 6.2 % [facility] Comment on above: ADA RECOMMENDED LIMI T 4.0 - 6.0 ADA THERAPEUTIC TARGET < 7.0 ACTION SUGGESTED > 7.0 [facility] e H PYLORI ANTIBODY IGGon 11-26 H. PYLORI IGG ABS 0.34 Index Value Normal 0.00-0.79 [facility] Comment on above: Result Comment: Nega tive <0.80 Equivocal 0.80 - 0.89 Positive >0.89 Performed By: #### T 7, RANDAL, LIPA, CMP, LIPID, TSH #### [facility] [address] [place] [address] Dr. Lisa Chong INSULINon 12-10-2022 Insulin 15.6 uIU/mL Normal 2.6-24.9 [facility] Comment on above: Performed By: #### I NSULIN #### [facility] [address] [address] [address] Lisa Chong AMYLASEon 12-09-2022 Amylase [Catalytic activity/Vol] 59 U/L Normal 25-115 [facility] Comment on above: Performed By: #### T 7, RANDAL, LIPA, CMP, LIPID, TSH #### [facility] [address] [place] [address] Dr. Lisa Chong CBC AUTO DIFFon 12-09-2022 BASO # 0.0 103/ul Normal 0.0-0.1 [facility] Comment on above: Performed By: #### T 7, RANDAL, LIPA, CMP, LIPID, TSH #### [facility] [address] [place] [address] Dr. Lisa Chong Basophils/100 WBC (Bld) 0.5 % Normal 0.2-2.0 [facility] Comment on above: Performed By: #### T 7, RANDAL, LIPA, CMP, LIPID, TSH #### [facility] [address] [place] [address] Dr. Lisa Chong EO # 0.0 103/ul Normal 0.0-0.7 [facility] Comment on above: Performed By: #### T 7, RANDAL, LIPA, CMP, LIPID, TSH #### [facility] [address] [place] [address] Dr. Lisa Chong Eosinophils/100 WBC (Bld) 0.0 % Critically low 0.9-7.0 [facility] Comment on above: Performed By: #### T 7, RANDAL, LIPA, CMP, LIPID, TSH #### [facility] [address] [place] [address] Dr. Lisa Chong Erythrocyte distribution width (RBC) [Ratio] 12.9 % Normal 11.0-15.0 [facility] Comment on above: Performed By: #### T 7, RANDAL, LIPA, CMP, LIPID, TSH #### [facility] [address] [place] [address] Dr. Lisa Chong Hematocrit (Bld) [Volume fraction] 42.7 % Normal 36.0-48.0 [facility] Comment on above: Performed By: #### T 7, RANDAL, LIPA, CMP, LIPID, TSH #### [facility] [address] [place] [address] Dr. Lisa Chong Hemoglobin (Bld) [Mass/Vol] 14.4 g/dL Normal 12.0-16.0 [facility] Comment on above: Performed By: #### T 7, RANDAL, LIPA, CMP, LIPID, TSH #### [facility] [address] [address] [address] Lisa Chong IG # 0.02 10e3/ul Normal 0.00-0.03 [facility] Comment on above: Performed By: #### T 7, RANDAL, LIPA, CMP, LIPID, TSH #### [facility] [address] [place] [address] Dr. Lisa Chong IG % 0.4 % Normal 0.0-0.5 [facility] Comment on above: Performed By: #### T 7, RANDAL, LIPA, CMP, LIPID, TSH #### [facility] [address] [place] [address] Dr. Lisa Chong LYMPH # 1.6 103/ul Normal 1.2-3.8 [facility] Comment on above: Performed By: #### T 7, RANDAL, LIPA, CMP, LIPID, TSH #### [facility] [address] [place] [address] Dr. Lisa Chong Lymphocytes/100 WBC (Bld) 28.0 % Normal 20.5-60.0 [facility] Comment on above: Performed By: #### T 7, RANDAL, LIPA, CMP, LIPID, TSH #### [facility] [address] [place] [address] Dr. Lisa Chong MANUAL DIFF REQ NO Normal [facility] Comment on above: Performed By: #### T 7, RANDAL, LIPA, CMP, LIPID, TSH #### [facility] [address] [place] [address] Dr. Lisa Chong MCH (RBC) [Entitic mass] 28.3 pg Normal 26.7-34.0 [facility] Comment on above: Performed By: #### T 7, RANDAL, LIPA, CMP, LIPID, TSH #### [facility] [address] [place] [address] Dr. Lisa Chong MCHC (RBC) [Mass/Vol] 33.7 g/dL Normal 29.9-35.2 [facility] Comment on above: Performed By: #### T 7, RANDAL, LIPA, CMP, LIPID, TSH #### [facility] [address] [place] [address] Dr. Lisa Chnog MCV (RBC) [Entitic vol] 83.9 fL Normal 81.0-99.0 [facility] Comment on above: Performed By: #### T 7, RANDAL, LIPA, CMP, LIPID, TSH #### [facility] [address] [place] [address] Dr. Lisa Chong MONO # 0.3 103/ul Normal 0.3-0.8 [facility] Comment on above: Performed By: #### T 7, RANDAL, LIPA, CMP, LIPID, TSH #### [facility] [address] [place] [address] Dr. Lisa Chong Monocytes/100 WBC (Bld) 5.2 % Normal 1.7-12.0 [facility] Comment on above: Performed By: #### T 7, RANDAL, LIPA, CMP, LIPID, TSH #### [facility] [address] [place] [address] Dr. Lisa Chong NEUT # 3.7 103/ul Normal 1.4-6.5 [facility] Comment on above: Performed By: #### T 7, RANDAL, LIPA, CMP, LIPID, TSH #### [facility] [address] [place] [address] Dr. Lisa Chong Neutrophils/100 WBC (Bld) 65.9 % Normal 43.0-75.0 [facility] Comment on above: Performed By: #### T 7, RANDAL, LIPA, CMP, LIPID, TSH #### [facility] [address] [place] [address] Dr. Lisa Chong Platelet mean volume (Bld) [Entitic vol] 10.1 fL Normal 9.5-13.5 [facility] Comment on above: Performed By: #### T 7, RANDAL, LIPA, CMP, LIPID, TSH #### [facility] [address] [place] [address] Dr. Lisa Chong PLT 292 103/ul Normal 150-450 [facility] Comment on above: Performed By: #### T 7, RANDAL, LIPA, CMP, LIPID, TSH #### [facility] [address] [address] [address] Lisa Chong RBC 5.09 106/ul Normal 4.20-5.40 [facility] Comment on above: Performed By: #### T 7, RANDAL, LIPA, CMP, LIPID, TSH #### [facility] [address] [address] [address] Lisa Chong WBC 5.6 103/ul Normal 4.0-11.0 [facility] Comment on above: Performed By: #### T 7, RANDAL, LIPA, CMP, LIPID, TSH #### [facility] [address] [place] [address] Dr. Lisa Chong FREE THYROXINE INDEX T7on FTI 3.42 Normal 1.30-4.50 [facility] Comment on above: Performed By: #### T 7, RANDAL, LIPA, CMP, LIPID, TSH #### [facility] [address] [place] [address] Dr. Lisa Chong T3U 36.0 % Normal 30.0-39.0 [facility] Comment on above: Performed By: #### T 7, RANDAL, LIPA, CMP, LIPID, TSH #### [facility] [address] [place] [address] Dr. Lisa Chong T4 [Mass/Vol] 9.50 ug/dL Normal 4.80-13.90 [facility] Comment on above: Performed By: #### T 7, RANDAL, LIPA, CMP, LIPID, TSH #### [facility] [address] [place] [address] Dr. Lisa Chong GLYCOHEMOGLOBIN A1Con 2022 ADA RECOMMENDATION SEE BELOW Normal [facility] Comment on above: Result Comment: ADA RECOMMENDED LIMIT 4.0 - 6.0 ADA THERAPEUTIC TARGET < 7.0 ACTION SUGGESTED > 7.0 Performed By: #### A 1C #### [facility] [address] [place] [address] Dr. Lisa Chong Glucose [Mass/Vol] 103 mg/dL Normal [facility] Comment on above: Performed By: #### A 1C #### [facility] [address] [address] [address] Lisa Chong HbA1c (Bld) [Mass fraction] 5.2 % Normal 4.5-6.2 [facility] Comment on above: Performed By: #### A 1C #### [facility] [address] [place] [address] Dr. Lisa Chong IRONon 12-09-2022 Iron [Mass/Vol] 157.0 ug/dL Normal 50.0-170.0 [facility] Comment on above: Performed By: #### T 7, RANDAL, LIPA, CMP, LIPID, TSH #### [facility] [address] [place] [address] Dr. Lisa Chong LIPASEon 12-09-2022 Lipase [Catalytic activity/Vol] 125.0 U/L Normal 73.0-393.0 [facility] Comment on above: Performed By: #### T 7, RANDAL, LIPA, CMP, LIPID, TSH #### [facility] [address] [place] [address] Dr. Lisa Chong LIPID PROFILEon 12-09-2022 CHOL-HDL RATIO NORM SEE BELOW Normal [facility] Comment on above: Result Comment: 3.3 - 4.4 LOW RISK 4.4 - 7.1 AVERAGE RISK 7.1 - 11.0 MODERATE RISK >11.0 HIGH RISK Performed By: #### T 7, RANDAL, LIPA, CMP, LIPID, TSH #### [facility] [address] [place] [address] Dr. Lisa Chong Cholesterol [Mass/Vol] 198 mg/dL Normal <=200 [facility] Comment on above: Performed By: #### T 7, RANDAL, LIPA, CMP, LIPID, TSH #### [facility] [address] [place] [address] Dr. Lisa Chong Cholesterol in HDL [Mass/Vol] 56 mg/dL Normal 40-60 [facility] Comment on above: Performed By: #### T 7, RANDAL, LIPA, CMP, LIPID, TSH #### [facility] [address] [address] [address] Lisa Chong Cholesterol in LDL [Mass/Vol] 123.4 mg/dL Normal [facility] Comment on above: Performed By: #### T 7, RANDAL, LIPA, CMP, LIPID, TSH #### [facility] [address] [address] [address] Lisa Chong Cholesterol.total/Cho lesterol in HDL [Mass ratio] 3.5 {ratio} Normal [facility] Comment on above: Performed By: #### T 7, RANDAL, LIPA, CMP, LIPID, TSH #### [facility] [address] [address] [address] Lisa Chong HDL NORMAL > or = 60 mg/dl - LOW CARDIOVASCULAR RISK <40 mg/dl - HIGH CARDIOVASCULAR RISK Normal [facility] Comment on above: Performed By: #### T 7, RANDAL, LIPA, CMP, LIPID, TSH #### [facility] [address] [place] [address] Dr. Lisa Chong LDL CALC NORMAL SEE BELOW Normal [facility] Comment on above: Result Comment: <100 mg/dl OPTIMAL 100 - 129 mg/dl NEAR OR ABOVE OPTIMAL 130 - 159 mg/dl BORDERLINE HIGH 160 - 189 mg/dl HIGH >190 mg/dl VERY HIGH Performed By: #### T 7, RANDAL, LIPA, CMP, LIPID, TSH #### [facility] [address] [address] [address] Lisa Chong Triglyceride [Mass/Vol] 93 mg/dL Normal <=150 [facility] Comment on above: Performed By: #### T 7, RANDAL, LIPA, CMP, LIPID, TSH #### [facility] [address] [place] [address] Dr. Lisa Chong VLDL CALC 18.6 mg/dL Normal [facility] Comment on above: Performed By: #### T 7, RANDAL, LIPA, CMP, LIPID, TSH #### [facility] [address] [address] [address] Lisa Chong PROF 14(COMP METB)on 023 Albumin [Mass/Vol] 4.6 g/dL Normal 3.4-5.0 [facility] Comment on above: Performed By: #### T 7, RANDAL, LIPA, CMP, LIPID, TSH #### [facility] [address] [place] [address] Dr. Lisa Chong Albumin/Globulin [Mass ratio] 1.3 {ratio} Normal [facility] Comment on above: Performed By: #### T 7, RANDAL, LIPA, CMP, LIPID, TSH #### [facility] [address] [place] [address] Dr. Lisa Chong ALP [Catalytic activity/Vol] 63 U/L Normal 46-116 [facility] Comment on above: Performed By: #### T 7, RANDAL, LIPA, CMP, LIPID, TSH #### [facility] [address] [place] [address] Dr. Lisa Chong ALT [Catalytic activity/Vol] 18 U/L Normal 14-59 [facility] Comment on above: Performed By: #### T 7, RANDAL, LIPA, CMP, LIPID, TSH #### [facility] [address] [place] [address] Dr. Lisa Chong Anion gap [Moles/Vol] 10.3 mmol/L Normal [facility] Comment on above: Performed By: #### T 7, RANDAL, LIPA, CMP, LIPID, TSH #### [facility] [address] [place] [address] Dr. Lisa Chong AST [Catalytic activity/Vol] 13 U/L Critically low 15-37 [facility] Comment on above: Performed By: #### T 7, RANDAL, LIPA, CMP, LIPID, TSH #### [facility] [address] [place] [address] Dr. Lisa Chong Bilirubin [Mass/Vol] 0.6 mg/dL Normal 0.2-1.0 [facility] Comment on above: Performed By: #### T 7, RANDAL, LIPA, CMP, LIPID, TSH #### [facility] [address] [place] [address] Dr. Lisa Chong Calcium [Mass/Vol] 9.6 mg/dL Normal 8.5-10.1 [facility] Comment on above: Performed By: #### T 7, RANDAL, LIPA, CMP, LIPID, TSH #### [facility] [address] [address] [address] Lisa Chong Chloride [Moles/Vol] 102 mmol/L Normal 98-107 [facility] Comment on above: Performed By: #### T 7, RANDAL, LIPA, CMP, LIPID, TSH #### [facility] [address] [address] [address] Lisa Chong CO2 [Moles/Vol] 28.7 mmol/L Normal 21.0-32.0 [facility] Comment on above: Performed By: #### T 7, RANDAL, LIPA, CMP, LIPID, TSH #### [facility] [address] [place] [address] Dr. Lisa Chong Creatinine [Mass/Vol] 0.59 mg/dL Normal 0.55-1.02 [facility] Comment on above: Performed By: #### T 7, RANDAL, LIPA, CMP, LIPID, TSH #### [facility] [address] [address] [address] Lisa Chong EGFR-AF INDONESIAN >60 Normal >=60 [facility] Comment on above: Performed By: #### T 7, RANDAL, LIPA, CMP, LIPID, TSH #### [facility] [address] [place] [address] Dr. Lisa Chong EGFR-NON AF INDONESIAN >60 Normal >=60 [facility] Comment on above: Performed By: #### T 7, RANDAL, LIPA, CMP, LIPID, TSH #### [facility] [address] [address] [address] Lisa Chong Globulin (S) [Mass/Vol] 3.5 g/dL Normal [facility] Comment on above: Performed By: #### T 7, RANDAL, LIPA, CMP, LIPID, TSH #### [facility] [address] [address] [address] Lisa Chong Glucose [Mass/Vol] 96 mg/dL Normal 74-106 [facility] Comment on above: Performed By: #### T 7, RANDAL, LIPA, CMP, LIPID, TSH #### [facility] [address] [place] [address] Dr. Lisa Chong Potassium [Moles/Vol] 4.0 mmol/L Normal 3.5-5.1 [facility] Comment on above: Performed By: #### T 7, RANDAL, LIPA, CMP, LIPID, TSH #### [facility] [address] [place] [address] Dr. Lisa Chong Protein [Mass/Vol] 8.1 g/dL Normal 6.4-8.2 [facility] Comment on above: Performed By: #### T 7, RANDAL, LIPA, CMP, LIPID, TSH #### [facility] [address] [place] [address] Dr. Lisa Chong Sodium [Moles/Vol] 137 mmol/L Normal 136-145 [facility] Comment on above: Performed By: #### T 7, RANDAL, LIPA, CMP, LIPID, TSH #### [facility] [address] [place] [address] Dr. Lisa Chnog Urea nitrogen [Mass/Vol] 14.0 mg/dL Normal 7.0-18.0 [facility] Comment on above: Performed By: #### T 7, RANDAL, LIPA, CMP, LIPID, TSH #### [facility] [address] [place] [address] Dr. Lisa Chong Urea nitrogen/Creatinine [Mass ratio] 23.7 mg/mg Normal [facility] Comment on above: Performed By: #### T 7, RANDAL, LIPA, CMP, LIPID, TSH #### [facility] [address] [place] [address] Dr. Lisa Chong TSHon 12-09-2022 TSH 0.713 uIU/mL Normal 0.358-3.740 [facility] Comment on above: Performed By: #### T 7, RANDAL, LIPA, CMP, LIPID, TSH #### [facility] [address] [place] [address] Dr. Lisa Chong Covid-19 PCR (CVDTB)on SARS-CoV-2 (COVID-19) RNA DAVIS+probe Ql (Unsp spec) Not detected Normal NOT DETECTED [facility] Comment on above: Result Comment: When diagnostic [...] for this test is supported by the Environmental Resource Specialist of Health and Human Service's declaration that [...] longer be used). Performed By: #### C VDTBH #### [facility] [address] [place] [address] Dr. Lisa Chong INFLUENZA A AND B AGon 09-30 [facility] SEE BELOW Normal [facility] Comment on above: Result Comment: Nega tive for Flu A protein angiten. Infection due to Flu A cannot be ruled out. Flu A angiten in the sample may be below the detection limit of the test. Performed By: #### I NFLUAB #### [facility] [address] [place] [address] Dr. [facility] Normal [facility] Comment on above: Result Comment: Nega tive for Flu B protein antigen. Infection due to Flu B cannot be ruled out. Flu B antigen in the sample may be below the detection limit of the test. Performed By: #### I NFLUAB #### [facility] [address] [place] [address] Dr. Lisa Chong INFLUENZA A AG Negative Normal NEGATIVE SEE COMMENT [facility] Comment on above: Performed By: #### I NFLUAB #### [facility] [address] [place], [place] [address] Dr. Lisa Chong INFLUENZA B AG Negative Normal NEGATIVE SEE COMMENT [facility] Comment on above: Performed By: #### I NFLUAB #### [facility] [address] [place], [place] [address] Dr. Lisa Chong Operative Reporton 0 Operative Report [id number] #1.00CD:127 Normal [facility] Reportson 06-13-2020 Lab Reports [id number] #1.00CD:127 [facility] Formson 05-22-2020 Forms [id number] #1.00CD:127 [facility] Forms [id number]# 1.00CD:127 [facility] Physician Referralon 020 Physician Referral [id number]# 1.00CD:127 [facility] Ambulatory Clinical Summaryo n 05-21-2020 Ambulatory Clinical Summary {[id number]}CD:[id number] [facility] Ambulatory Clinical Summary {[id number]}CD:[id number] [facility] Ambulatory Clinical Summary {[id number]}CD:[id number] [facility] Patient Educationon 05-21-20 20 Patient Education [...] Document Reviewed: 07/11/2010 ExitCare? Patient Information ?2013 [employer]. Normal [facility] Urology Office/Clinic Noteon 05-21-2020 Urology Office/Clinic Note [...] Illness Reviewed UA. 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 There have been no associated [...] for Macrobid 100mg qd #60 sent to [facility] in [place]. Discussed the medication side effects, and the [...] and history for this pt. from Dr. Hollingsworth. Follow-up With When Contact Information PREETI ZHOU, [place] [address] [place] [address]- [phone] Additional Instructions: Patient Education Urinary Frequency I, Paula Guerra , personally scribed for Dr. Hollingsworth on 05/21/2020 13:37:16. . Documentation recorded by the scribe, Paula Guerra, accurately reflects the services(s) I performed and decisions made by me. Authenticated by Dr. Hollingsworth on 05/21/2020 13:42:30. Problem List/Past Medical History [...] Protein Urine Dipstick: Negative (05/21/20 12:34:00) Specific [place] Urine Dipstick: 1.015 (05/21/20 12:34:00) Urine Appearance Urine Dipstick: Clear (05/21/20 12:34:00) Urine Color Urine Dipstick: Yellow (05/21/20 12:34:00) Urobilinogen Urine Dipstick: Normal 0.2-1 EU/dl (05/21/20 12:34:00) pH Urine Dipstick: 6.5 (05/21/20 12:34:00) Normal [facility] Comment on above: Result Comment: Elec tronically Signed By: Jimbo HOLLINGSWORTH MD\.br\Date and Time Signed: 05/21/20 13:42 EDT\.br\Electronically Co-Signed By: Paula Guerra MA\.br\Date and Time Co-Signed: 05/21/20 13:37 EDT Vital Signs Date Time Vital Sign Value Performing Clinician Faci lity 10-06-2024 11:10-0500 Body weight 63.56 kg Marilyn Amadou DO Work Phone: [facility] 10-06-2024 11:10-0500 Diastolic blood pressure 62 mm[Hg] Marilyn Amadou DO Work Phone: [facility] [facility] 11:10-0500 Systolic blood pressure 120 mm[Hg] Marilyn Amadou DO Work Phone: [facility] 08-30-2024 13:30-0500 Body weight 62.96 kg Marilyn Amadou DO Work Phone: [facility] 08-30-2024 13:30-0500 Diastolic blood pressure 74 mm[Hg] Marilyn Amadou DO Work Phone: [facility] 08-30-2024 13:30-0500 Systolic blood pressure 112 mm[Hg] Marilyn Amadou DO Work Phone: [facility] Encounters Encounter Date Encounter Type Care Provider Facility Start: 10-06-2024 End: 10-06-2024 Bamboo flowsheet Marilyn Amadou DO Work Phone: [facility] Start: 10-06-2024 End: 10-06-2024 Bamboo flowsheet Marilyn Amadou DO Work Phone: [facility] Start: 10-06-2024 End: 10-06-2024 Office outpatient visit 15 minutes Marilyn Amadou DO Work Phone: [facility] Comment on above: Hormone imbalance; Mood changes; Memory loss Start: 10-06-2024 End: 10-06-2024 ambulatory MARILYN AMADOU Not Available Start: 09-01-2024 End: 09-01-2024 Clinisync Result Encounter Marilyn Amadou DO Work Phone: [facility] Unsolicited Start: 09-01-2024 End: 09-01-2024 Clinisync Result Encounter Marilyn Amadou DO Work Phone: [facility] Unsolicited Start: 08-30-2024 End: 08-30-2024 Bamboo flowsheet Marilyn Amadou DO Work Phone: [facility] Start: 08-30-2024 End: 08-30-2024 Bamboo flowsheet Marilyn Amadou DO Work Phone: [facility] Start: 08-30-2024 End: 08-30-2024 Office outpatient visit 15 minutes Marilyn Amadou DO Work Phone: [facility] Comment on above: Hormone imbalance; Memory loss; Hormone disorder; H/O herpes genitalis Start: 08-30-2024 End: 08-30-2024 ambulatory MARILYN AMADOU Not Available Start: 12-09-2022 End: 12-10-[address] MISHA YAO . Facility: Start: 09-30-2022 End: 09-30-[address] MISHA YAO . Facility: Start: 06-10-2018 End: 06-10-2018 Emergency department patient visit UNKNOWN PROVIDER Facility:[facility] Procedures Date Procedure Procedure Detail Performing Clinician Start: 09-01-2024 MLR HEMOGLOBIN A1C Core y Amadou DO Work Phone: Start: 06-10-2018 DISCHARGE PATIENT UNKNO WN PROVIDER Plan of Treatment Date Care Activity Detail Author Start: 11-23-2024 End: 11-23-2024 Patient encounter procedure 11/23/2024 3:00 PM EST Office Visit [facility] [address] [place] [id number] Marilyn Tobar, DO [address] [place] [address] [facility] Start: 10-06-2024 End: 10-06-2024 Patient encounter procedure [facility] Comment on above: Arrived Start: 08-30-2024 End: 08-30-2025 C-peptide C-peptide Lab Routine Hormone disorder Expected: 08/30/2024 (Approximate), Expires: 08/30/2025 [facility] Comment on above: Expected: 08/30/2024 (Approximate), Expires: 08/30/2025 Start: 08-30-2024 End: 08-30-2025 Cortisol free Cortisol, free Lab Routine Hormone disorder Expected: 08/30/2024 (Approximate), Expires: 08/30/2025 [facility] Comment on above: Expected: 08/30/2024 (Approximate), Expires: 08/30/2025 Start: 08-30-2024 End: 08-30-2025 Glucose [Mass/volume] in Serum or Plasma Glucose, random Lab Routine Hormone disorder Expected: 08/30/2024 (Approximate), Expires: 08/30/2025 [facility] Comment on above: Expected: 08/30/2024 (Approximate), Expires: 08/30/2025 Start: 08-30-2024 End: 08-30-2025 Insulin, total Insulin, total Lab Routine Hormone disorder Expected: 08/30/2024 (Approximate), Expires: 08/30/2025 [facility] Comment on above: Expected: 08/30/2024 (Approximate), Expires: 08/30/2025 Start: 08-30-2024 End: 08-30-2025 Serotonin serum Serotonin serum Lab Routine Hormone disorder Expected: 08/30/2024 (Approximate), Expires: 08/30/2025 [facility] Comment on above: Expected: 08/30/2024 (Approximate), Expires: 08/30/2025 Start: 08-30-2024 End: 08-30-2025 Thyroglobulin Thyroglobulin Lab Routine Hormone disorder Expected: 08/30/2024 (Approximate), Expires: 08/30/2025 [facility] Comment on above: Expected: 08/30/2024 (Approximate), Expires: 08/30/2025 Start: 08-30-2024 End: 08-30-2025 Thyroglobulin Antibody Thyroglobulin Antibody Lab Routine Hormone disorder Expected: 08/30/2024 (Approximate), Expires: 08/30/2025 [facility] Comment on above: Expected: 08/30/2024 (Approximate), Expires: 08/30/2025 Start: 08-30-2024 End: 08-30-2025 Thyrotropin [Units/volume] in Serum or Plasma [facility] Comment on above: Ordered: 08/30/2024 Expected: 08/30/2024 (Approximate), Expires: 08/30/2025 Start: 08-30-2024 End: 08-30-2024 Patient encounter procedure 08/30/2024 1:10 PM EST Office Visit [facility] [address] [place] [address] Marilyn Tobar DO [address] [place] [address] Arrived [facility] Comment on above: Arrived DHEA-sulfate DHEA-sulfate Lab Routine Hormone disorder Ordered: 08/30/2024 [facility] Comment on above: Ordered: 08/30/2024 Estradiol Estradiol Lab Ro utine Hormone disorder Ordered: 08/30/2024 [facility] Work Phone: Comment on above: Ordered: 08/30/2024 Estrone Estrone Lab Rout ine Hormone disorder Ordered: 08/30/2024 [facility] Comment on above: Ordered: 08/30/2024 Ferritin [Mass/volum e] in Serum or Plasma Ferritin Lab Routine Hormone disorder Ordered: 08/30/2024 [facility] Comment on above: Ordered: 08/30/2024 Hemoglobin A1c/Hemoglobin.total in Blood Hemoglobin A1c Lab Routine Hormone disorder Ordered: 08/30/2024 [facility] Comment on above: Ordered: 08/30/2024 Progesterone Progesterone Lab Routine Hormone disorder Ordered: 08/30/2024 [facility] Comment on above: Ordered: 08/30/2024 Sex hormone binding globulin Sex hormone binding globulin Lab Routine Hormone disorder Ordered: 08/30/2024 [facility] Comment on above: Ordered: 08/30/2024 T3, reverse T3, reverse Lab Routine Hormone disorder Ordered: 08/30/2024 [facility] Comment on above: Ordered: 08/30/2024 TESTOSTERONE, FREE TESTOSTERONE, FREE Lab Routine Hormone disorder Ordered: 08/30/2024 [facility] Comment on above: Ordered: 08/30/2024 Testosterone, free, total Testos terone, free, total Lab Routine Hormone disorder Ordered: 08/30/2024 [facility] Comment on above: Ordered: 08/30/2024 Thyroid peroxidase antibody Thyroid peroxidase antibody Lab Routine Hormone disorder Ordered: 08/30/2024 [facility] Comment on above: Ordered: 08/30/2024 Thyroxine (T4) free [Mass/volume] in Serum or Plasma T4, free Lab Routine Hormone disorder Ordered: 08/30/2024 [facility] Comment on above: Ordered: 08/30/2024 Triiodothyronine (T3 ) Free [Mass/volume] in Serum or Plasma T3, free Lab Routine Hormone disorder Ordered: 08/30/2024 [facility] Comment on above: Ordered: 08/30/2024 Vitamin D 1,25 dihydroxy Vitamin D 1,25 dihydroxy Lab Routine Hormone disorder Ordered: 08/30/2024 [facility] Comment on above: Ordered: 08/30/2024 Payers Date Payer Category Payer Medicaid (Managed Care) [employer] [id number] 2018 Unknown [id number] 1991 Unknown [id number] 1991 Unknown [id number] 1991 Unknown [id number] 1991 Unknown [id number] 1959 Unknown [id number] Social History Date Type Detail Facility Tobacco smoking stat [facility] Tobacco smoking consumption unknown [facility] Start: 1990 Sex assigned at Female [facility] Start: 08-05-2024 Gender identity Identifies as female gender (finding) [facility] Start: 08-05-2024 Sexual orientation Heterosexual (fin ding) [facility] History of Present illness Narrative 10-06-2024 Magnolia Calvo LPN - 10/06/2024 10:40 AM EST Note Date & Type Note Facility 10-06-2024 History of Presen t illness Narrative Reason for Appointment: Patient ID: Starla Rod is a 33 y.o. female who presents for Follow-up Patient presents today for Follow up appointment to discuss results. MEDICATIONS Current Outpatient Medications Medication Instructions levonorgestrel-ethinyl estradiol (Jolessa) 0.15-0.03 MG tablet 1 tablet, Oral, Daily, Take 1 tablet by mouth daily ALLERGIES Allergies Allergen Reactions Penicillins Anaphylaxis, Hives, Shortness of breath and Wheezing PROBLEMS Active Ambulatory Problems Diagnosis Date Noted No Active Ambulatory Problems Resolved Ambulatory Problems Diagnosis Date Noted No Resolved Ambulatory Problems No Additional Past Medical History HISTORY PAST MEDICAL HISTORY SOCIAL HISTORY History reviewed. No pertinent past medical history. Social History Tobacco Use Smoking status: Not on file Smokeless tobacco: Not on file Substance Use Topics Alcohol use: Not on file Drug use: Not on file FAMILY HISTORY Family History Problem Relation Name Age of Onset Uterine cancer Mother Breast cancer Mother's Sister Breast cancer Father's Sister SURGICAL HISTORY History reviewed. No pertinent surgical history. REVIEW OF SYSTEMS Review of Systems: Review of Systems All other systems reviewed and are negative. OBJECTIVE Objective: Physical Exam Constitutional: Appearance: Normal appearance. She is well-developed. Cardiovascular: Rate and Rhythm: Normal rate and regular rhythm. Pulmonary: Effort: Pulmonary effort is normal. Breath sounds: Normal breath sounds. Abdominal: General: Bowel sounds are normal. There is no distension. Palpations: Abdomen is soft. Tenderness: There is no abdominal tenderness. There is no guarding or rebound. Musculoskeletal: General: No swelling. Normal range of motion. Right lower leg: No edema. Left lower leg: No edema. Neurological: Mental Status: She is alert and oriented to person, place, and time. Skin: General: Skin is warm and dry. Psychiatric: Mood and Affect: Mood normal. Behavior: Behavior normal. Vitals and nursing note reviewed. Exam conducted with a dental mold maker present. Vitals: There is no height or weight on file to calculate BMI. BP: 120/62 Patient's last menstrual period was 08/30/2024. ASSESSMENT & PLAN ICD-10-CM 1. Hormone imbalance E34.9 Patient presents to review lab results. Informed patient that results are within normal limits. Patient voiced that her fatigue and memory changes are the most bothersome. Patient sees Dr. Yao for PCP. Discussed Jolessa that was previously prescribed and it made patient aggressive and will discontinue medication. Discussed if it would be ok for provider to reach out to PCP to possibly discuss plan of care. Will also send magnesium to patients pharmacy and it will take at least 2 weeks to take effect. Discuss holistic approaches as well. Patient given website for [employer] in [place]. Patient to schedule annual appointment on her way out of office. Documented by Magnolia Calvo LPN on behalf of: Marilyn Tobar DO documented in this encounter [facility] History of Present illness Narrative 08-30-2024 Shelly Rodriguez LPN - 08/30/2024 1:10 PM EST Note Date & Type Note Facility 08-30-2024 History of Presen t illness Narrative Reason for Appointment: Patient ID: Starla Rod is a 33 y.o. female who presents for hormones changes Patient presents today for Acute Visit. and Consult appointment. MEDICATIONS No current outpatient medications ALLERGIES Allergies Allergen Reactions Penicillins Anaphylaxis, Hives, Shortness of breath and Wheezing PROBLEMS Active Ambulatory Problems Diagnosis Date Noted No Active Ambulatory Problems Resolved Ambulatory Problems Diagnosis Date Noted No Resolved Ambulatory Problems No Additional Past Medical History HISTORY PAST MEDICAL HISTORY SOCIAL HISTORY History reviewed. No pertinent past medical history. Social History Tobacco Use Smoking status: Not on file Smokeless tobacco: Not on file Substance Use Topics Alcohol use: Not on file Drug use: Not on file FAMILY HISTORY Family History Problem Relation Name Age of Onset Uterine cancer Mother Breast cancer Mother's Sister Breast cancer Father's Sister SURGICAL HISTORY History reviewed. No pertinent surgical history. REVIEW OF SYSTEMS Review of Systems: Review of Systems Constitutional: Negative. HENT: Negative. Eyes: Negative. Respiratory: Negative. Cardiovascular: Negative. Gastrointestinal: Negative. Genitourinary: Negative. Musculoskeletal: Negative. Skin: Negative. Neurological: Negative. All other systems reviewed and are negative. Hematological: Negative. Endocrine: Negative. Allergic/Immunologic: Negative. OBJECTIVE Objective: Physical Exam Constitutional: Appearance: Normal appearance. She is well-developed. Cardiovascular: Rate and Rhythm: Normal rate and regular rhythm. Pulmonary: Effort: Pulmonary effort is normal. Breath sounds: Normal breath sounds. Abdominal: General: Bowel sounds are normal. There is no distension. Palpations: Abdomen is soft. Tenderness: There is no abdominal tenderness. There is no guarding or rebound. Musculoskeletal: General: No swelling. Normal range of motion. Right lower leg: No edema. Left lower leg: No edema. Neurological: Mental Status: She is alert and oriented to person, place, and time. Skin: General: Skin is warm and dry. Psychiatric: Mood and Affect: Mood normal. Behavior: Behavior normal. Vitals and nursing note reviewed. Exam conducted with a dental mold maker present. Vitals: There is no height or weight on file to calculate BMI. BP: 112/74 No LMP recorded. ASSESSMENT & PLAN ICD-10-CM 1. Hormone imbalance E34.9 2. Memory loss R41.3 Pt presents with complaints of hormone changes, hair loss, fatigued, memory loss. Pt states at work she is forgetting to do routine things. Pt working 2 jobs and has to pull back from second job and is still fatigued. Pt given buderer labs to have obtained. Pt to return in 4 weeks for annual- and review labs. Valtrex faxed to pharmacy for h/o herpes, pt to start on jolessa, rx faxed to pharmacy. Documented by Shelly Rodriguez LPN on behalf of: Marilyn Tobar DO documented in this encounter [facility] Evaluation note Note Date & Type Note Facility Evaluation note Diagnosis Hormone imbalance Memory loss Hormone disorder Unspecified endocrine disorder H/O herpes genitalis documented in this encounter [facility] Evaluation note Note Date & Type Note Facility Evaluation note Diagnosis Hormone imbalance Mood changes Unspecified episodic mood disorder Memory loss documented in this encounter [facility] Summary Purpose Family History No Family History Records FoundNo Family History Records FoundNo Family History Records FoundNo Family History Records Found Advance Directives No Advanced Directives Records FoundNo Advanced Directives Records FoundNo Advanced Directives Records FoundNo Advanced Directives Records Found Additional Source Comments INFORMATION SOURCE (unrecogn ized section and content) DATE CREATED AUTHOR 07/12/2018 [facility] DATE CREATED AUTHOR AUTHOR'S ORGANIZ ATION 06/18/2020 Mcdonald Floyd [facility] DATE CREATED AUTHOR AUTHOR'S ORGANIZ ATION 12/16/2022 [facility] DATE CREATED AUTHOR AUTHOR'S ORGANIZ ATION 10/11/2024 [facility] EPIC Reason for Visit (unrecogniz ed section and content) Reason Comments hormones changes Reason Comments Follow-up FOR RECORDS PERTAINING TO PATIENTS WHO ARE [...] BE BASED ON THE PRIMARY CLINICAL RECORDS. [facility]. provides no warranty or guarantee of the accuracy or completeness of information in this document.
[2024-12-04 12:07] LABS: Age Gdln ACOG Testing Note (.); HPV Aptima Negative (Negative); IGP, Aptima HPV, rfx 16/18,45 Note (.)
== END 2024-11-29 18:38 | disposition home or self-care (01) ==
LOC: LAB 18:37
PROVIDERS: Visit Provider Obstetrics & Gynecology
DX: Z01.419 Encounter for gynecological examination (general) (routine) without abnormal findings (principal)
CPT/HCPCS: 87624; 88175

== ENCOUNTER 2025-05-19 08:16 | Emergency (ER) | payer OTHER, SELFPAY ==
--- OUTSIDE RECORDS SUMMARY | 2024-06-09 05:45 | XMS_ITS ---
Author Organization [facility] in [place] Address [address] [place] [address] Care Team Providers Care Explosive Specialist Name Role Phone Matheus Yao Primary Care Provider Allergies Allergen (clinical drug ingredient) Drug/Non Drug Allergy documented on EMR Reaction Allergy Type Onset Date Status sulfamethoxazole / trimethoprim Bactrim joint pain Drug Allergy Active Penicillin Unknown Drug Allergy Active REASON FOR VISIT week ago started with diarrhea, runny bad runny nose- now over the past few days green nasal drainage- ears hurt and lymph nodes sensitive to touch- ears feel wet- home covid negative Medications Medication SIG (Take, Route, Fr equency, Duration) Notes Start Date End Date Status levoFLOXacin 500 MG 1 tablet Orally Once a day for 10 days 06/09/2024 Active Buprenorphine HCl 8 MG 1 tablet under th e tongue and allow to dissolve Sublingual q day 11/27/2023 Active Social History Tobacco Use: Social History Observation Description Date Details (start date - stop date) Current Smoker NA - NA Tobacco Use/Smoking Question Answer Notes Patient is a current smoker Vital Signs Weight 134.6 lbs 06/09/2024 Height 64 in 06/09/2024 Blood pressure systolic 122 mm Hg 06/09/20 24 Blood pressure diastolic 80 mm Hg 024 BMI 23.1 kg/m2 06/09/2024 Encounters Encounter Location Date Provider Diagnosis [facility] [address] [place] [address] 06/09/2024 Matheus Yao Acute non-recurrent sinusitis, unspecified location J01.90 and Nasal congestion R09.81 Assessments Encounter Date Diagnosis (ICD Code) Assessment Notes Treatment Notes Treatment Clinical Notes Section Notes 06/09/2024 Acute non-recurrent sinusitis, unspecified location (ICD-10 - J01.90) Rest and drink more liquids, especially water. You may use a humidifier or vaporizer to help keep the drainage moist. Rggz-ryw-meyfkbm Nasal Saline may help the stuffy and runny nose. Use Ibuprofen and or Tylenol as needed for fever, chills, body aches or pain. Children 5 years old should not be given jyru-xqa-izeyuxt cough and cold medications such as guaifenesin and dextromethorphan. If you're over age 5, you may try fisz-vjc-vucdxku cold medications such as guaifenesin and dextromethorphan, or multi-symptom cold reliever such as Dayquil to help reduce the symptoms. Antibiotics have been prescribed. You should take these until completed and follow the directions. Antibiotics can sometimes cause upset stomach, and in rare cases, serious allergic reactions or serious gastrointestinal problems. If you start having severe abdominal pain, severe vomiting, or bloody diarrhea, you should be reevaluated by your physician or urgent care immediately. Follow up with your Primary Care Provider or return to clinic if symptoms do not improve within 3-5 days 06/09/2024 Nasal congestion (ICD-10 - R09.81) Plan Of Treatment Medication Medication Name Sig Start Date Stop Date Notes levoFLOXacin 500 MG 1 tablet Orally Once a day for 10 days 06/09/2024 Treatment Notes Assessment Notes Acute non-recurrent sinusiti s, unspecified location Rest and drink more liquids, especially water. You may use a humidifier or vaporizer to help keep the drainage moist. Gawv-she-chafnio Nasal Saline may help the stuffy and runny nose. Use Ibuprofen and or Tylenol as needed for fever, chills, body aches or pain. Children 5 years old should not be given ywtn-bnn-koujpcv cough and cold medications such as guaifenesin and dextromethorphan. If you're over age 5, you may try txba-oji-ndjgprg cold medications such as guaifenesin and dextromethorphan, or multi-symptom cold reliever such as Dayquil to help reduce the symptoms. Antibiotics have been prescribed. You should take these until completed and follow the directions. Antibiotics can sometimes cause upset stomach, and in rare cases, serious allergic reactions or serious gastrointestinal problems. If you start having severe abdominal pain, severe vomiting, or bloody diarrhea, you should be reevaluated by your physician or urgent care immediately. Follow up with your Primary Care Provider or return to clinic if symptoms do not improve within 3-5 days Next Appt Details Follow Up: 3-5 days if not i mproving, Reason: Progress Notes * Starla ROD MDOB:1990 (33 yo F)Acc No.[id number]:06/09/2024 Progress Note Patient: Starla MAURO Provider: Dino Yao ([facility])MD :1990 A ge:33 Y S ex:Female Date:06/09/2024 Address:[address] [place], [place] [id number] Check In:09:38 AM ESTCheck O ut:10:42 AM EST Subjective: * Chief Complaints: * 1 . Week ago started with diarrhea, runny bad runny nose- now over the past few days green nasal drainage- ears hurt and lymph nodes sensitive to touch- ears feel wet- home covid negative. * HPI: G eneral: neg covid last week. S inusitis: The patient complains of symptoms of sinus infection. The symptoms have been present for 1-2 days. The symptoms are moderate. Symptomatic treatment has included OTC medication. Associated symptoms include headache, facial pain, runny nose, nasal congestion. * ROS: S kin: Rash d enies. E NT: Comments S [facility] for details. C ardiovascular: Edema d enies. P alpitations d enies. ? R espiratory: Chest pain d enies. C ough d enies. W heezing?denies. G astrointestinal: Abdominal pain d enies. N ausea d enies. V omiting d enies. * Active Problem List G43.909 Migraine headache Modified On:11/27/2023U Status:confirmed G47.00 Insomnia Modified On:11/27/2023 Status:confirmed F11.10 Narcotic abuse Modified On:11/27/2023U Status:confirmed N60.19 Fibrocystic breast d isease Modified On:03/01/2024W/U Status:confirmed * Medical History: B romhidrosis, COVID-19, Dysfunctional uterine bleeding, Fibrocystic breast disease, Insomnia, Migraine headache, Narcotic abuse. * Surgical History: t ubal ligation , ovary cyst removal , shortened tubes to kidneys . * Hospitalization/Major Diagno stic Procedure: D enies Past Hospitalization. * Family History: F ather: alive, diagnosed with Unspecified essential hypertension. M other: alive, seizure disorder, diagnosed with Unspecified heart disease. S ister(s): alive. S on(s): alive. D aughter(s): alive. 1 sister(s) - healthy. 1 son(s) , 2 daughter(s) - healthy. . * Social History: T obacco Use: T obacco Use/Smoking P athair is a c urrent smoker * Medications: T aking Buprenorphine HCl 8 MG Tablet Sublingual 1 tablet under the tongue and allow to dissolve Sublingual q day , Discontinued levoFLOXacin 750 MG Tablet 1 tablet Orally Once a day , Medication List reviewed and reconciled with the patient * Allergies: P enicillin: Allergy, Bactrim: joint pain - Allergy. Objective: * Vitals: W t:134.6lbs, Ht: 64 in, BP:122/80mm Hg, BMI:23.1Index, Ht-cm: 162.56 cm, Wt-k.05 kg. * Examination: G eneral Examination: GENERAL APPEARANCE: in no acute distress, well developed, well nourished. ENT: ear and nose external appearance normal, tympanic membranes clear bilaterally, facial tenderness to palpation over sinuses. EYES: pupils equal, round, reactive to light and accomodations. ORAL CAVITY: mucosa moist. NECK: n araseli supple, full range of motion, no cervical lymphadenopathy. LUNGS: c lear to auscultation bilaterally. CARDIO: no murmurs, regular rate and rhythm, S1, S2 normal. ABDOMEN: soft, nontender , not distended, bowel sounds are active. SKIN: no suspicious lesions, warm and dry. EXTREMITIES: no clubbing, cyanosis, or edema. NEUROLOGIC: nonfocal, motor strength of upper/lower extremities intact , sensory exam intact. Assessment: * Assessment: 1. A cute non-recurrent sinusitis, unspecified location - J01.90 (Primary) 2 . N wes congestion - R09.81 Plan: * Treatment: * Follow Up: 3 -5 days if not improving * * Sign off status: Completed Visit Status: C HK (Check Out) true * Provider: Dino Yao ([facility])MD Date: 0 06/09/2024 Generated for Printi ng/Faxing/eTransmitting on: 0 05/19/2025 08:28 AM EDT History and Physical Notes * HPI (History of Present Illness) Category Sub-Category Detail Notes Category Not es General neg covid last week Examination Category Sub-Category Detail Notes Category Not es General Examination GENERAL APPEARANCE: in no ac jany distress, well developed, well nourished ENT: ear and nose externa l appearance normal, tympanic membranes clear bilaterally, facial tenderness to palpation over sinuses EYES: pupils equal, round, reactive to light and accomodations NECK: neck supple, full ra nge of motion, no cervical lymphadenopathy CARDIO: no murmurs, regular rate and rhythm, S1, S2 normal LUNGS: clear to auscultatio n bilaterally ABDOMEN: soft, nontender , no t distended, bowel sounds are active NEUROLOGIC: nonfocal, motor stre ngth of upper/lower extremities intact , sensory exam intact SKIN: no suspicious lesion s, warm and dry EXTREMITIES: no clubbing, cyanosi s, or edema ORAL CAVITY: mucosa moist
--- OUTSIDE RECORDS SUMMARY | 2024-08-29 10:45 | XMS_ITS ---
Author Organization [facility] [place] Address [address] [place] [address] Care Team Providers Care Chain Builder Name Role Phone Matheus Yao Primary Care Provider Allergies Allergen (clinical drug ingredient) Drug/Non Drug Allergy documented on EMR Reaction Allergy Type Onset Date Status sulfamethoxazole / trimethoprim Bactrim joint pain Drug Allergy Active Penicillin Unknown Drug Allergy Active Results Component Value Reference Range Notes COVID-19, Flu A+B IH (Not ye t reviewed by provider) Interpretation: Performing Lab: Notes/Report: COVID - FLU A - FLU B - Control + REASON FOR VISIT coughing, diarrhea, green thick mucus-COVID NEG Medications Medication SIG (Take, Route, Fr equency, Duration) Notes Start Date End Date Status levoFLOXacin 750 MG 1 tablet Orally Once a day for 10 day(s) 08/29/2024 Active Social History Tobacco Use: Social History Observation Description Date Details (start date - stop date) Current Smoker NA - NA Tobacco Use/Smoking Question Answer Notes Patient is a current smoker Vital Signs Weight 137 lbs 08/29/2024 Height 64 in 08/29/2024 Blood pressure systolic 102 mm Hg 08/29/20 24 Blood pressure diastolic 70 mm Hg 024 Temperature 99.0 degrees Fahrenheit 08/29/20 24 BMI 23.51 kg/m2 08/29/2024 Encounters Encounter Location Date Provider Diagnosis [facility] [address] [place] [address] 08/29/2024 Matheus Maximilian Cough R05.9 ; Acute non-recurrent sinusitis, unspecified location J01.90 and Nasal congestion R09.81 Assessments Encounter Date Diagnosis (ICD Code) Assessment Notes Treatment Notes Treatment Clinical Notes Section Notes 08/29/2024 Cough (ICD-10 - R05.9) 08/29/2024 Acute non-recurrent sinusitis, unspecified location (ICD-10 - J01.90) Rest and drink more liquids, especially water. You may use a humidifier or vaporizer to help keep the drainage moist. Spqf-qrr-igthheg Nasal Saline may help the stuffy and runny nose. Use Ibuprofen and or Tylenol as needed for fever, chills, body aches or pain. Children 5 years old should not be given dshg-gff-bxnviqs cough and cold medications such as guaifenesin and dextromethorphan. If you're over age 5, you may try zmqf-iuw-stiebis cold medications such as guaifenesin and dextromethorphan, [...] symptoms do not improve within 3-5 days 08/29/2024 Nasal congestion (ICD-10 - R09.81) Plan Of Treatment Medication Medication Name Sig Start Date Stop Date Notes levoFLOXacin 750 MG 1 tablet Orally Once a day for 10 day(s) 08/29/2024 Treatment Notes Assessment Notes Acute non-recurrent sinusiti s, unspecified location Rest and drink more liquids, especially water. You may use a humidifier or vaporizer to help keep the drainage moist. Fmns-tbe-dwltaim Nasal Saline may help the stuffy and runny nose. Use Ibuprofen and or Tylenol as needed for fever, chills, body aches or pain. Children 5 years old should not be given yeiy-tpp-nwptfil cough and cold medications such as guaifenesin and dextromethorphan. If you're over age 5, you may try emld-cwe-jcpiayk cold medications such as guaifenesin and dextromethorphan, [...] symptoms do not improve within 3-5 days Pending Test Test Name Order Date COVID-19, Flu A+B IH 08/29/2024 Next Appt Details Follow Up: 3-5 days if not i mproving, Reason: Progress Notes * Starla ROD MDOB:1990 (33 yo F)Acc No.[id number]:08/29/2024 Progress Note Patient: Starla MAURO Provider: Dino Yao ([facility])MD :1990 A ge:33 Y S ex:Female Date:08/29/2024 Address:[address] [place] [address] Check In:02:02 PM ESTCheck O ut:02:40 PM EST Subjective: * Chief Complaints: * c oughing, diarrhea, green thick mucus-COVID NEG * HPI: S inusitis: The patient complains of symptoms of sinus infection. The symptoms have been present for 1-2 days. The symptoms are moderate. Symptomatic treatment has included OTC medication. Associated symptoms include headache, facial pain, runny nose, nasal congestion. * ROS: S kin: Rash d enies. E NT: Comments S [facility] for details. C ardiovascular: Edema d enies. P alpitations d enies. ? R espiratory: Chest pain d enies. C ough d enies. W heezing?denies. G astrointestinal: Abdominal pain d enies. N ausea d enies. V omiting d enies. * Active Problem List G43.909 Migraine headache Modified On:11/27/2023/U Status:confirmed G47.00 Insomnia Modified On:11/27/2023U Status:confirmed F11.10 Narcotic abuse Modified On:11/27/2023U Status:confirmed N60.19 Fibrocystic breast d isease Modified On:11/27/2023W/U Status:confirmed * Medical History: * Surgical History: t ubal ligation ovary cyst removal shortened tubes to kidneys * Hospitalization/Major Diagno stic Procedure: N o Hospitalization History. * Family History: F ather: alive, diagnosed with Unspecified essential hypertension. M other: alive, seizure disorder, diagnosed with Unspecified heart disease. S ister(s): alive. S on(s): alive. D darhter(s): alive. 1 sister(s) - healthy. 1 son(s) , 2 daughter(s) - healthy. . * Social History: T obacco Use: T obacco Use/Smoking P atient is a c urrent smoker * Medications: N one * Allergies: P enicillin: AllergyBactrim: joint pain - Allergyno[Allergies Verified] Objective: * Vitals: W t:137lbs, Ht: 64 in, BP:102/70mm Hg, Temp:99.0F, BMI:23.51Index, Ht-cm: 162.56 cm, Wt-k.14 kg. * Examination: G eneral Examination: GENERAL [...] sensory exam intact. Assessment: * Assessment: 1. C ough - R05.9 (Primary) 2 . A cute non-recurrent sinusitis, unspecified location - J01.90 3 . N wes congestion - R09.81 Plan: * Treatment: 2. A cute non-recurrent sinusitis, unspecified location Notes:Rest and drink more liquids, especially water. You may use a humidifier or vaporizer to help keep the drainage moist. Gmxc-cef-rkkcevn Nasal Saline may help the stuffy and runny nose. Use Ibuprofen and or Tylenol as needed for fever, chills, body aches or pain. Children 5 years old should not be given fiyj-gbx-xttfdoz cough and cold medications such as guaifenesin and dextromethorphan. If you're over age 5, you may try exsc-cyq-sipgstq cold medications such as guaifenesin and dextromethorphan, [...] symptoms do not improve within 3-5 days * Labs: * L ab: COVID-19, Flu A+B IH (Collection Date & Time - 08/29/2024) Value Reference Range C OVID - * F JUAN LUIS A - * F JUAN LUIS B - * C ontrol + * Procedure Codes: 8 7636 SARSCOV2 & INF A&B AMP PRB, Modifiers: QW * Preventive Medicine: Screenings/Counseling: B CO ACTION PLAN Above Normal BMI Follow-up D ietary management education, guidance, and counseling * Follow Up: 3 -5 days if not improving * * Sign off status: Completed Visit Status: C HK (Check Out) true * Provider: Dino Yao ([facility])MD Date: 10/30/2023 Generated for Pauloi ng/Favivianag/eTransmitting on: 0 05/19/2025 08:29 AM EDT History and Physical Notes * Examination Category Sub-Category Detail Notes Category Not [...]
[2025-05-19] VITALS (13 sets, daily range): BP systolic 105–111; BP diastolic 60–79; PULSE 78–237; O2SAT 90–100
--- OUTSIDE RECORDS SUMMARY | 2025-05-19 08:29 | XMS_ITS | Patient Health Record ---
Author Organization [facility] in [place] Address [address] [place] [address] Care Team Providers Care Instructional Services Specialist Name Role Phone Matheus Yao Primary Care Provider [phone] Allergies Allergen (clinical drug ingredient) Drug/Non Drug Allergy documented on EMR Reaction Allergy Type Onset Date Status sulfamethoxazole / trimethoprim Bactrim joint pain Drug Allergy Active Penicillin Unknown Drug Allergy Active Results Component Value Reference Range Notes COVID-19, Flu A+B IH (Not ye t reviewed by provider) Interpretation: Performing Lab: Notes/Report: COVID - FLU A - FLU B - Control + Reason For Referral No Information Medications Medication SIG (Take, Route, Fr equency, Duration) Notes Start Date End Date Status levoFLOXacin 750 MG 1 tablet Orally Once a day for 10 day(s) 08/29/2024 Active Social History Tobacco Use: Social History Observation Description Date Details (start date - stop date) Current Smoker NA - NA Tobacco Use/Smoking Question Answer Notes Patient is a current smoker Problems Problem Type SNOMED Code ICD Code Onset Dates Problem Status W/U Status Risk Notes Problem Migraine variant with headache (disorder) (421106661) Migraine headache (G43.909) Active confirmed Problem Insomnia (916552224) Insomnia (G47.00) Active confirmed Problem Opioid abuse (2209542) Narcotic abuse (F11.10) Active confirmed Problem Fibrocystic breast changes (92458923) Fibrocystic breast disease (N60.19) Active confirmed Vital Signs Temperature 99.0 degrees Fahrenheit 08/29/2024 Blood pressure diastolic 70 mm Hg 08/29/2024 Height 64 in 08/29/2024 Blood pressure systolic 102 mm Hg 08/29/2024 Weight 137 lbs 08/29/2024 BMI 23.51 kg/m2 08/29/2024 Encounters Encounter Location Date Provider Diagnosis [facility] [address] [place] [address] 06/09/2024 Matheus Hoy Acute non-recurrent sinusitis, unspecified location J01.90 and Nasal congestion R09.81 [facility] [address] [place] [address] 08/29/2024 Matheus Hoy Cough R05.9 ; Acute non-recurrent sinusitis, unspecified location J01.90 and Nasal congestion R09.81 Assessments Encounter Date Diagnosis (ICD Code) Assessment Notes Treatment Notes Treatment Clinical Notes Section Notes 06/09/2024 Acute non-recurrent sinusitis, unspecified location (ICD-10 - J01.90) Rest and drink more liquids, especially water. You may use a humidifier or vaporizer to help keep the drainage moist. Eriv-diz-hllpbvu Nasal Saline may help the stuffy and runny nose. Use Ibuprofen and or Tylenol as needed for fever, chills, body aches or pain. Children 5 years old should not be given esvw-lyk-dunkttj cough and cold medications such as guaifenesin and dextromethorphan. If you're over age 5, you may try mhas-nwx-yywcpka cold medications such as guaifenesin and dextromethorphan, [...] do not improve within 3-5 days 08/29/2024 Cough (ICD-10 - R05.9) 08/29/2024 Acute non-recurrent sinusitis, unspecified location (ICD-10 - J01.90) Rest and drink more liquids, especially water. You may use a humidifier or vaporizer to help keep the drainage moist. Rkxd-joi-yqlldqx Nasal Saline may help the stuffy and runny nose. Use Ibuprofen and or Tylenol as needed for fever, chills, body aches or pain. Children 5 years old should not be given xzkg-sdj-btczcwm cough and cold medications such as guaifenesin and dextromethorphan. If you're over age 5, you may try gdaw-mqt-oxqytlq cold medications such as guaifenesin and dextromethorphan, [...] days 06/09/2024 Nasal congestion (ICD-10 - R09.81) 08/29/2024 Nasal congestion (ICD-10 - R09.81) Plan Of Treatment Pending Test Test Name Order Date COVID-19, Flu A+B IH 08/29/2024 Insurance Providers Payer Name Payer Address Payer Phone Subscriber Number Group Number Insured Name Patient Relationship to Insured Coverage Start Date Coverage End Date [employer] [place] [employer] [address] [place] [phone] [id number] Starla Rod Self - patient is the insured Medical (General) History Medical History History ICD Code 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
--- OUTSIDE RECORDS SUMMARY | 2025-05-19 08:29 | XMS_ITS | Clinical Summary ---
Author Organization [facility] Address [address] [place] [address] Care Team Providers Care Rehab Care Assistant Name Role Phone Unavailable Primary Care Provider Unavailabl e Allergies Active Allergy Reactions Criticality Noted Date Comments Penicillins Anaphylaxis,Hives,Sh ortness of breath,Wheezing High 08/27/2000 Medications magnesium oxide (Mag-Ox) 400 MG tabletIndication s:Prescription refill Take 1 tablet (400 mg) by mouth Daily 30 tablet 6 01/05/2025 5 Active valACYclovir (Valtrex) 500 MG tabletIndication s:Prescription refill Take 1 tablet (500 mg) by mouth Daily 30 tablet 11 01/05/2025 6 Active Active Problems Problem Noted Date Diagnosed Date Hormone imbalance 10/06/2024 Mood changes 10/06/2024 Memory loss 10/06/2024 Family History Medical History Relation Name Comments Breast cancer Father's Sister Uterine cancer Mother Breast cancer Mother's Sister Relation Name Status Comments Father's Sister Mother Mother's Sister Social History Tobacco Use Types Packs/Day Years Used Date Smoking Tobacco: Never Assessed Comments Unknown Sex and Gender Information Value Date Recorded Sex Assigned at Female 08/05/2024 9:49 PM EST Legal Sex Female 3:09 PM EST Gender Identity Female 08/05/2024 9:49 PM EST Sexual Orientation Straight 08/05/2024 9: 49 PM EST Last Filed Vital Signs Vital Sign Reading Time Taken Comments Blood Pressure 100/60 11/29/2024 2:59 PM EST Pulse - - Temperature - - Respiratory Rate - - Oxygen Saturation - - Inhaled Oxygen Concentration - - Weight 62.1 kg (136 lb 12.8 oz) 11/29/2024 2:59 PM EST Height - - Body Mass Index - - Plan of Treatment Upcoming Encounters Date Type Department Care Team (Late st Contact Info) Description 12/06/2025 2:00 PM EDT Office Visit [facility] [address] [place] [address] Alberto Tobar DO [address] [place] [address] Insurance [employer]
--- OUTSIDE RECORDS SUMMARY | 2025-05-19 08:29 | XMS_ITS | Encounter Summary ---
Author Organization [facility] Address [address] [place] [address] Care Team Providers Care Sewer Pipe Layer Name Role Phone Unavailable Primary Care Provider Unavailabl e Encounter Details Date Type Department Care Team (Late st Contact Info) Description 12/12/2024 Orders Only [facility] [address] [place] [address] [place] [address] Michelle Isidro MA [address] [facility] [place] [address] Social History Tobacco Use Types Packs/Day Years Used Date Smoking Tobacco: Never Assessed Comments Unknown Sex and Gender Information Value Date Recorded Sex Assigned at Female 08/05/2024 9:49 PM EST Legal Sex Female 3:09 PM EST Gender Identity Female 08/05/2024 9:49 PM EST Sexual Orientation Straight 08/05/2024 9: 49 PM EST documented as of this encounter Plan of Treatment Upcoming Encounters Date Type Department Care Team (Late st Contact Info) Description 12/06/2025 2:00 PM EDT Office Visit [facility] [address] [place] [address] [place] [address] Alberto Tobar DO [address] [facility] [facility] [address] [place], [place] [id number] documented as of this encounter Procedures Procedure Name Priority Date/Time Associated Diagnosis Comments PAP SMEAR Routine 11/29/2024 12:00 AM EST documented in this encounter Results * Pap Smear (11/29/2024 12:00 AM EST) Swab Cervical swab / Unknown us Alberto Tobar DO LAB CYTOLOGY ORDERABLES Final Re sult EXTERNAL LAB documented in this encounter Visit Diagnoses Not on filedocumented in this encounter
[2025-05-19] MEDS: ADENOSINE 6 MG/2 ML VIAL IVP (08:31)
--- OUTSIDE RECORDS SUMMARY | 2025-05-19 08:31 | XMS_ITS | CCD ---
Author Organization [facility] Care Team Providers Care Enlisted Advisor Name Role Phone PROVIDER, UNKNOWN Unavailable Unavailable [...] Jules Attending Unavailable MARILYN TOBAR Attending Unavailable MARILYN TOBAR Attending Unavailable Allergies Allergy Classification Reported Allergen(s) Allergy Type Date of Onset Reaction(s) Facility (1 source) Penicillins Drug allergy (disorder) 3 [facility] (8 sources) Penicillins Propensity to adverse reactions 0 Anaphylaxis, Hives, Shortness of breath, Wheezing [facility] Work Phone: Medications Current Medications Medication Drug Class(es) Dates Sig (Normalized) Sig (Original) magnesium oxide 400 mg oral tablet (2 sources) Start: 10-06-2024 End: 11-05-2024 take 1 tablet by mouth once daily magnesium oxide (Mag-Ox) 400 MG tablet Indications: Hormone imbalance , Mood changes Take 1 tablet (400 mg) by mouth Daily 30 tablet 11 10/06/2024 11/05/2024 Active Completed/Discontinued Medications Medication Drug Class(es) Dates Sig (Normalized) Sig (Original) Ethinyl Estradiol / Levonorgestrel (8 sources) Progestin, Estrogen, Progestin-containi ng Intrauterine Device Start: 08-30-2024 End: 11-29-2024 take 1 tablet by mouth once daily, then take 1 tablet by mouth once daily levonorgestrel-eth inyl estradiol (Jolessa) 0.15-0.03 MG tablet Indications: Hormone imbalance Take 1 tablet by mouth Daily Take 1 tablet by mouth daily 84 tablet 3 08/30/2024 11/29/2024 Discontinued Start: 08-30-2024 End: 08-30-2025 take 1 tablet by mouth once daily, then take 1 tablet by mouth once daily levonorgestrel-ethinyl estradiol (Jolessa) 0.15-0.03 MG tablet Indications: Hormone imbalance Take 1 tablet by mouth Daily Take 1 tablet by mouth daily 84 tablet 3 08/30/2024 08/30/2025 Active valACYclovir 500 mg oral tablet (6 sources) [...] [OTHER FATIGUE] Onset: 12-16-19 Episodic Mood disorders (6 sources) Disturbance in mood; Translations: [Emotional lability] Onset: 10-06-1910-06-2024 Episodic Other endocrine disorders (10 sources) Disorder of endocrine system; Translations: [Endocrine [...] UNSPECIFIED] Onset: 12-10-19 Episodic Residual codes; unclassified (8 sources) Amnesia; Translations: [Other amnesia] Onset: 10-06-1908-30-2024 Episodic Unclassified (3 sources) CONTACT W/AND (SUSP) EXPOS COVID-19; Translations: [CONTACT W/AND (SUSP) EXPOS COVID-19] Onset: 10-03-19 Unclassified (1 source) COUGH, UNSPECIFIED; Translations: [COUGH, UNSPECIFIED] Onset: 10-03-19 Past or Other Problems Problem Classification Problem Date Documented Da te Episodic/Chronic Unclassified (1 source) CONTACT W/AND (SUSP) EXPOS COVID-19; Translations: [CONTACT W/AND (SUSP) EXPOS COVID-19] Onset: 09-30-2022 Results Test Name Value Interpretation Reference Range Facility [facility] HEMOGLOBIN A1Con 024 Glucose [Mass/Vol] 100 mg/dL [facility] HbA1c (Bld) [Mass fraction] 5.1 % 4.5 - 6.2 % [facility] Comment on above: ADA RECOMMENDED LIMI T 4.0 - 6.0 ADA THERAPEUTIC TARGET < 7.0 ACTION SUGGESTED > 7.0 [facility] ANTIBODY IGGon 11-26 H. PYLORI IGG ABS 0.34 Index Value Normal 0.00-0.79 [facility] Comment on above: Result Comment: Nega tive <0.80 Equivocal 0.80 - 0.89 Positive >0.89 Performed By: #### T 7, RANDAL, LIPA, CMP, LIPID, TSH #### [facility] [address] [address] [address] Lisa Chong INSULINon 12-10-2022 Insulin 15.6 uIU/mL Normal 2.6-24.9 [facility] Comment on above: Performed By: #### I NSULIN #### [facility] [address] [place] [address] Dr. Lisa Chong AMYLASEon 12-09-2022 Amylase [Catalytic activity/Vol] 59 U/L Normal 25-115 [facility] Comment on above: Performed By: #### T 7, RANDAL, LIPA, CMP, LIPID, TSH #### [facility] [address] [place] [address] Dr. Lisa Chong CBC AUTO DIFFon 12-09-2022 BASO # 0.0 103/ul Normal 0.0-0.1 [facility] Comment on above: Performed By: #### T 7, RANDAL, LIPA, CMP, LIPID, TSH #### [facility] [address] [place] [address] Dr. Lisa Chong Basophils/100 WBC (Bld) 0.5 % Normal 0.2-2.0 [facility] Comment on above: Performed By: #### T 7, RANDAL, LIPA, CMP, LIPID, TSH #### [facility] [address] [place] [address] Dr. Lisa Chong EO # 0.0 103/ul Normal 0.0-0.7 [facility] Comment on above: Performed By: #### T 7, RANDAL, LIPA, CMP, LIPID, TSH #### [facility] [address] [place] [address] Dr. Lisa Chong Eosinophils/100 WBC (Bld) 0.0 % Critically low 0.9-7.0 [facility] Comment on above: Performed By: #### T 7, RANDAL, LIPA, CMP, LIPID, TSH #### [facility] [address] [place] [address] Dr. Lisa Chong Erythrocyte distribution width (RBC) [Ratio] 12.9 % Normal 11.0-15.0 [facility] Comment on above: Performed By: #### T 7, RANDAL, LIPA, CMP, LIPID, TSH #### [facility] [address] [place] [address] Dr. Lisa Chong Hematocrit (Bld) [Volume fraction] 42.7 % Normal 36.0-48.0 [facility] Comment on above: Performed By: #### T 7, RANDAL, LIPA, CMP, LIPID, TSH #### [facility] [address] [place] [address] Dr. Lisa Chong Hemoglobin (Bld) [Mass/Vol] 14.4 g/dL Normal 12.0-16.0 [facility] Comment on above: Performed By: #### T 7, RANDAL, LIPA, CMP, LIPID, TSH #### [facility] [address] [place] [address] Dr. Lisa Chong IG # 0.02 10e3/ul Normal 0.00-0.03 [facility] Comment on above: Performed By: #### T 7, RANDAL, LIPA, CMP, LIPID, TSH #### [facility] [address] [place] [address] Dr. Lisa Cohng IG % 0.4 % Normal 0.0-0.5 [facility] Comment on above: Performed By: #### T 7, RANDAL, LIPA, CMP, LIPID, TSH #### [facility] [address] [place] [address] Dr. Lisa Chong LYMPH # 1.6 103/ul Normal 1.2-3.8 [facility] Comment on above: Performed By: #### T 7, RANDAL, LIPA, CMP, LIPID, TSH #### [facility] [address] [place] [address] Dr. Lisa Chong Lymphocytes/100 WBC (Bld) 28.0 % Normal 20.5-60.0 [facility] Comment on above: Performed By: #### T 7, RANDAL, LIPA, CMP, LIPID, TSH #### [facility] [address] [place] [address] Dr. Lisa Chong MANUAL DIFF REQ NO Normal [facility] Comment on above: Performed By: #### T 7, RANDAL, LIPA, CMP, LIPID, TSH #### [facility] [address] [place] [address] Dr. Lisa Chong MCH (RBC) [Entitic mass] 28.3 pg Normal 26.7-34.0 [facility] Comment on above: Performed By: #### T 7, RANDAL, LIPA, CMP, LIPID, TSH #### [facility] [address] [place] [address] Dr. Lisa Chong MCHC (RBC) [Mass/Vol] 33.7 g/dL Normal 29.9-35.2 [facility] Comment on above: Performed By: #### T 7, RANDAL, LIPA, CMP, LIPID, TSH #### [facility] [address] [place] [address] Dr. Lisa Chong MCV (RBC) [Entitic vol] 83.9 fL Normal 81.0-99.0 [facility] Comment on above: Performed By: #### T 7, RANDAL, LIPA, CMP, LIPID, TSH #### [facility] [address] [place] [address] Dr. Lisa Chong MONO # 0.3 103/ul Normal 0.3-0.8 [facility] Comment on above: Performed By: #### T 7, RANDAL, LIPA, CMP, LIPID, TSH #### [facility] [address] [place] [address] Dr. Lisa Chong Monocytes/100 WBC (Bld) 5.2 % Normal 1.7-12.0 [facility] Comment on above: Performed By: #### T 7, RANDAL, LIPA, CMP, LIPID, TSH #### [facility] [address] [place] [address] Dr. Lisa Chong NEUT # 3.7 103/ul Normal 1.4-6.5 [facility] Comment on above: Performed By: #### T 7, RANDAL, LIPA, CMP, LIPID, TSH #### [facility] [address] [place] [address] Dr. Lisa Chong Neutrophils/100 WBC (Bld) 65.9 % Normal 43.0-75.0 [facility] Comment on above: Performed By: #### T 7, RANDAL, LIPA, CMP, LIPID, TSH #### [facility] [address] [place] [address] Dr. Lisa Chong Platelet mean volume (Bld) [Entitic vol] 10.1 fL Normal 9.5-13.5 [facility] Comment on above: Performed By: #### T 7, RANDAL, LIPA, CMP, LIPID, TSH #### [facility] [address] [address] [address] Lisa Chong PLT 292 103/ul Normal 150-450 [facility] Comment on above: Performed By: #### T 7, RANDAL, LIPA, CMP, LIPID, TSH #### [facility] [address] [place] [address] Dr. Lisa Chong RBC 5.09 106/ul Normal 4.20-5.40 [facility] Comment on above: Performed By: #### T 7, RANDAL, LIPA, CMP, LIPID, TSH #### [facility] [address] [place] [address] Dr. Lisa Chong WBC 5.6 103/ul Normal 4.0-11.0 [facility] Comment on above: Performed By: #### T 7, RANDAL, LIPA, CMP, LIPID, TSH #### [facility] [address] [place] [address] Dr. Lisa Chong FREE THYROXINE INDEX T7on FTI 3.42 Normal 1.30-4.50 [facility] Comment on above: Performed By: #### T 7, RANDAL, LIPA, CMP, LIPID, TSH #### [facility] [address] [address] [address] Lisa Chong T3U 36.0 % Normal 30.0-39.0 [facility] Comment on above: Performed By: #### T 7, RANDAL, LIPA, CMP, LIPID, TSH #### [facility] [address] [address] [address] Lisa Chong T4 [Mass/Vol] 9.50 ug/dL Normal 4.80-13.90 [facility] Comment on above: Performed By: #### T 7, RANDAL, LIPA, CMP, LIPID, TSH #### [facility] [address] [place] [address] Dr. Lisa Chong GLYCOHEMOGLOBIN A1Con 03-14- 2023 ADA RECOMMENDATION SEE BELOW Normal [facility] Comment on above: Result Comment: ADA RECOMMENDED LIMIT 4.0 - 6.0 ADA THERAPEUTIC TARGET < 7.0 ACTION SUGGESTED > 7.0 Performed By: #### A 1C #### [facility] [address] [place] [address] Dr. Lisa Chong Glucose [Mass/Vol] 103 mg/dL Normal [facility] Comment on above: Performed By: #### A 1C #### [facility] [address] [address] [address] Lisa Chong HbA1c (Bld) [Mass fraction] 5.2 % Normal 4.5-6.2 [facility] Comment on above: Performed By: #### A 1C #### [facility] [address] [place] [address] Dr. Lisa Chong IRONon 12-09-2022 Iron [Mass/Vol] 157.0 ug/dL Normal 50.0-170.0 [facility] Comment on above: Performed By: #### T 7, RANDAL, LIPA, CMP, LIPID, TSH #### [facility] [address] [place] [address] Dr. Lisa Chong LIPASEon 12-09-2022 Lipase [Catalytic activity/Vol] 125.0 U/L Normal 73.0-393.0 [facility] Comment on above: Performed By: #### T 7, RANDAL, LIPA, CMP, LIPID, TSH #### [facility] [address] [place] [address] Dr. Lisa Chong LIPID PROFILEon 12-09-2022 CHOL-HDL RATIO NORM SEE BELOW Normal [facility] Comment on above: Result Comment: 3.3 - 4.4 LOW RISK 4.4 - 7.1 AVERAGE RISK 7.1 - 11.0 MODERATE RISK >11.0 HIGH RISK Performed By: #### T 7, RANDAL, LIPA, CMP, LIPID, TSH #### [facility] [address] [place] [address] Dr. Lisa Chong Cholesterol [Mass/Vol] 198 mg/dL Normal <=200 [facility] Comment on above: Performed By: #### T 7, RANDAL, LIPA, CMP, LIPID, TSH #### [facility] [address] [address] [address] Lisa Chong Cholesterol in HDL [Mass/Vol] 56 mg/dL Normal 40-60 [facility] Comment on above: Performed By: #### T 7, RANDAL, LIPA, CMP, LIPID, TSH #### [facility] [address] [address] [address] Lisa Chong Cholesterol in LDL [Mass/Vol] 123.4 mg/dL Normal [facility] Comment on above: Performed By: #### T 7, RANDAL, LIPA, CMP, LIPID, TSH #### [facility] [address] [place] [address] Dr. Lisa Chong Cholesterol.total/Cho lesterol in HDL [Mass ratio] 3.5 {ratio} Normal [facility] Comment on above: Performed By: #### T 7, RANDAL, LIPA, CMP, LIPID, TSH #### [facility] [address] [place] [address] Dr. Lisa Chong HDL NORMAL > or = 60 mg/dl - LOW CARDIOVASCULAR RISK <40 mg/dl - HIGH CARDIOVASCULAR RISK Normal [facility] Comment on above: Performed By: #### T 7, RANDAL, LIPA, CMP, LIPID, TSH #### [facility] [address] [place] [address] Dr. Lisa Chong LDL CALC NORMAL SEE BELOW Normal [facility] Comment on above: Result Comment: <100 mg/dl OPTIMAL 100 - 129 mg/dl NEAR OR ABOVE OPTIMAL 130 - 159 mg/dl BORDERLINE HIGH 160 - 189 mg/dl HIGH >190 mg/dl VERY HIGH Performed By: #### T 7, RANDAL, LIPA, CMP, LIPID, TSH #### [facility] [address] [place] [address] Dr. Lisa Chong Triglyceride [Mass/Vol] 93 mg/dL Normal <=150 [facility] Comment on above: Performed By: #### T 7, RANDAL, LIPA, CMP, LIPID, TSH #### [facility] [address] [place] [address] Dr. Lisa Chong VLDL CALC 18.6 mg/dL Normal [facility] Comment on above: Performed By: #### T 7, RANDAL, LIPA, CMP, LIPID, TSH #### [facility] [address] [place] [address] Dr. Lisa Chong PROF 14(COMP METB)on 023 Albumin [Mass/Vol] 4.6 g/dL Normal 3.4-5.0 [facility] Comment on above: Performed By: #### T 7, RANDAL, LIPA, CMP, LIPID, TSH #### [facility] [address] [place] [address] Dr. Lisa Chong Albumin/Globulin [Mass ratio] 1.3 {ratio} Normal [facility] Comment on above: Performed By: #### T 7, RANDAL, LIPA, CMP, LIPID, TSH #### [facility] [address] [place] [address] Dr. Lisa Chong ALP [Catalytic activity/Vol] 63 U/L Normal 46-116 [facility] Comment on above: Performed By: #### T 7, RANDAL, LIPA, CMP, LIPID, TSH #### [facility] [address] [place] [address] Dr. Lisa Chong ALT [Catalytic activity/Vol] 18 U/L Normal 14-59 [facility] Comment on above: Performed By: #### T 7, RANDAL, LIPA, CMP, LIPID, TSH #### [facility] [address] [place] [address] Dr. Lisa Chong Anion gap [Moles/Vol] 10.3 mmol/L Normal [facility] Comment on above: Performed By: #### T 7, RANDAL, LIPA, CMP, LIPID, TSH #### [facility] [address] [place] [address] Dr. Lisa Chong AST [Catalytic activity/Vol] 13 U/L Critically low 15-37 [facility] Comment on above: Performed By: #### T 7, RANDAL, LIPA, CMP, LIPID, TSH #### [facility] [address] [place] [address] Dr. Lisa Chong Bilirubin [Mass/Vol] 0.6 mg/dL Normal 0.2-1.0 [facility] Comment on above: Performed By: #### T 7, RANDAL, LIPA, CMP, LIPID, TSH #### [facility] [address] [place] [address] Dr. Lisa Chong Calcium [Mass/Vol] 9.6 mg/dL Normal 8.5-10.1 [facility] Comment on above: Performed By: #### T 7, RANDAL, LIPA, CMP, LIPID, TSH #### [facility] [address] [place] [address] Dr. Lisa Chong Chloride [Moles/Vol] 102 mmol/L Normal 98-107 [facility] Comment on above: Performed By: #### T 7, RANDAL, LIPA, CMP, LIPID, TSH #### [facility] [address] [place] [address] Dr. Lisa Chong CO2 [Moles/Vol] 28.7 mmol/L Normal 21.0-32.0 [facility] Comment on above: Performed By: #### T 7, RANDAL, LIPA, CMP, LIPID, TSH #### [facility] [address] [place] [address] Dr. Lisa Chong Creatinine [Mass/Vol] 0.59 mg/dL Normal 0.55-1.02 [facility] Comment on above: Performed By: #### T 7, RANDAL, LIPA, CMP, LIPID, TSH #### [facility] [address] [place] [address] Dr. Lisa Chong EGFR-AF YEMENI >60 Normal >=60 [facility] Comment on above: Performed By: #### T 7, RANDAL, LIPA, CMP, LIPID, TSH #### [facility] [address] [place] [address] Dr. Lisa Chong EGFR-NON AF YEMENI >60 Normal >=60 [facility] Comment on above: Performed By: #### T 7, RANDAL, LIPA, CMP, LIPID, TSH #### [facility] [address] [place] [address] Dr. Lisa Chong Globulin (S) [Mass/Vol] 3.5 g/dL Normal [facility] Comment on above: Performed By: #### T 7, RANDAL, LIPA, CMP, LIPID, TSH #### [facility] [address] [place] [address] Dr. Lisa Chong Glucose [Mass/Vol] 96 mg/dL Normal 74-106 [facility] Comment on above: Performed By: #### T 7, RANDAL, LIPA, CMP, LIPID, TSH #### [facility] [address] [place] [address] Dr. Lisa Chong Potassium [Moles/Vol] 4.0 mmol/L Normal 3.5-5.1 [facility] Comment on above: Performed By: #### T 7, RANDAL, LIPA, CMP, LIPID, TSH #### [facility] [address] [place] [address] Dr. Lisa Chong Protein [Mass/Vol] 8.1 g/dL Normal 6.4-8.2 [facility] Comment on above: Performed By: #### T 7, RANDAL, LIPA, CMP, LIPID, TSH #### [facility] [address] [place] [address] Dr. Lisa Chong Sodium [Moles/Vol] 137 mmol/L Normal 136-145 [facility] Comment on above: Performed By: #### T 7, RANDAL, LIPA, CMP, LIPID, TSH #### [facility] [address] [place] [address] Dr. Lisa Chong Urea nitrogen [Mass/Vol] 14.0 mg/dL Normal 7.0-18.0 [facility] Comment on above: Performed By: #### T 7, RANDAL, LIPA, CMP, LIPID, TSH #### [facility] [address] [place] [address] Dr. Lisa Chong Urea nitrogen/Creatinine [Mass ratio] 23.7 mg/mg Normal [facility] Comment on above: Performed By: #### T 7, RANDAL, LIPA, CMP, LIPID, TSH #### [facility] [address] [place] [address] Dr. Lisa Chong TSHon 12-09-2022 TSH 0.713 uIU/mL Normal 0.358-3.740 [facility] Comment on above: Performed By: #### T 7, RANDAL, LIPA, CMP, LIPID, TSH #### [facility] [address] [place] [id number] Lisa Chong Covid-19 PCR ([facility])on SARS-CoV-2 (COVID-19) RNA DAVIS+probe Ql (Unsp spec) Not detected Normal NOT DETECTED [facility] Comment on above: Result Comment: When diagnostic [...] for this test is supported by the [employer] of [employer] and Human Service's declaration that [...] used). Performed By: #### C VDTBH #### [facility] [address] [place], [place] [id number] Dr. Lisa Chong INFLUENZA A AND B AGon 09-30 INFLUANEGH SEE BELOW Normal [facility] Comment on above: Result Comment: Nega tive for Flu A protein angiten. Infection due to Flu A cannot be ruled out. Flu A angiten in the sample may be below the detection limit of the test. Performed By: #### I NFLUAB #### [facility] [address] [place] [id number] Lisa Chong INFLUBNEG SEE BELOW Normal [facility] Comment on above: Result Comment: Nega tive for Flu B protein antigen. Infection due to Flu B cannot be ruled out. Flu B antigen in the sample may be below the detection limit of the test. Performed By: #### I NFLUAB #### [facility] [address] [address] [address] Lisa Chong INFLUENZA A AG Negative Normal NEGATIVE SEE COMMENT [facility] Comment on above: Performed By: #### I NFLUAB #### [facility] [address] [address] [address] Lisa Chong INFLUENZA B AG Negative Normal NEGATIVE SEE COMMENT [facility] Comment on above: Performed By: #### I NFLUAB #### [facility] [address] [address] [address] Lisa Chong Operative Reporton 0 Operative Report [id number] #1.00CD:127 [facility] Lab Reportson 06-13-2020 Lab Reports [id number] #1.00CD:127 Normal [facility] Formson 05-22-2020 Forms [id number] #1.00CD:127 [facility] Forms [id number]# 1.00CD:127 [facility] Physician Referralon 020 Physician Referral [id number]# 1.00CD:127 Normal [facility] Ambulatory Clinical Summaryo n 05-21-2020 Ambulatory Clinical Summary {[id number]}CD:[id number] [facility] Ambulatory Clinical Summary {[id number]}CD:[id number] [facility] Ambulatory Clinical Summary {[id number]}CD:[id number] Darling Mcdonald [facility] Patient Educationon 05-21-20 20 Patient Education [...] Document Reviewed: 07/11/2010 ExitCare? Patient Information ?2013 [employer] Darling [facility] Urology Office/Clinic Noteon 05-21-2020 Urology Office/Clinic [...] Illness Reviewed UA. 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 There have been no associated [...] for Macrobid 100mg qd #60 sent to [facility] in [place]. Discussed the medication side effects, and the [...] When Contact Information PREETI ZHOU, Jimbo Linda [address] [place] [address] [place] [address]- [phone] Additional Instructions: Patient Education Urinary Frequency I, [...] Protein Urine Dipstick: Negative (05/21/20 12:34:00) Specific [place] Urine Dipstick: 1.015 (05/21/20 12:34:00) Urine Appearance Urine Dipstick: Clear (05/21/20 12:34:00) Urine Color Urine Dipstick: Yellow (05/21/20 12:34:00) Urobilinogen Urine Dipstick: Normal 0.2-1 EU/dl (05/21/20 12:34:00) pH Urine Dipstick: 6.5 (05/21/20 12:34:00) Normal [facility] Comment on above: Result Comment: Elec tronically Signed By: PREETI ZHOU, Jimbo Linda\.br\Date and Time Signed: 05/21/20 13:42 EDT\.br\Electronically Co-Signed By: Paula Guerra MA\.br\Date and Time Co-Signed: 05/21/20 13:37 EDT Vital Signs Date Time Vital Sign Value Performing Clinician Nabilai rebeccay 11-29-2024 14:59-0500 Body weight 62.05 kg Marilyn Amadou DO Work Phone: [facility] 11-29-2024 14:59-0500 Diastolic blood pressure 60 mm[Hg] Marilyn Amadou DO Work Phone: [facility] 11-29-2024 14:59-0500 Systolic blood pressure 100 mm[Hg] Marilyn Amadou DO Work Phone: [facility] 10-06-2024 11:10-0500 Body weight 63.56 kg Marilyn Amadou DO Work Phone: [facility] 10-06-2024 11:10-0500 Diastolic blood pressure 62 mm[Hg] Marilyn Amadou DO Work Phone: [facility] 10-06-2024 11:10-0500 Systolic blood pressure 120 mm[Hg] Marilyn Amadou DO Work Phone: [facility] 08-30-2024 13:30-0500 Body weight 62.96 kg Marilyn Amadou DO Work Phone: [facility] 08-30-2024 13:30-0500 Diastolic blood pressure 74 mm[Hg] Marilyn Amadou DO Work Phone: [facility] 08-30-2024 13:30-0500 Systolic blood pressure 112 mm[Hg] Marilyn Amadou DO Work Phone: [facility] Encounters Encounter Date Encounter Type Care Provider Facility Start: 11-29-2024 End: 11-29-2024 Patient encounter procedure Marilyn Amadou DO Work Phone: [facility] Work Phone: Start: 11-29-2024 End: 11-29-2024 Periodic preventive med est patient 18-39 yrs Marilyn Amadou DO Work Phone: [facility] Comment on above: Well woman exam with routine gynecological exam Start: 11-29-2024 End: 11-29-2024 ambulatory MARILYN AMADOU Not Available Start: 11-29-2024 End: 11-29-2024 Bamboo flowsheet Marilyn Amadou DO Work Phone: [facility] Start: 11-29-2024 End: 11-29-2024 Bamboo flowsheet Marilyn Amadou DO Work Phone: [facility] Start: 10-06-2024 End: 10-06-2024 Bamboo flowsheet Marilyn Amadou DO Work Phone: [facility] Start: 10-06-2024 End: 10-06-2024 Bamboo flowsheet Marilyn Amadou DO Work Phone: [facility] Start: 10-06-2024 End: 10-06-2024 Office outpatient visit 15 minutes Marilyn Amadou DO Work Phone: [facility] Comment on above: Hormone imbalance; Mood [...] Emergency department patient visit UNKNOWN PROVIDER Facility:[facility] Procedures Date Procedure Procedure Detail Performing Clinician Start: 09-01-2024 MLR HEMOGLOBIN A1C Core y Amadou DO Work Phone: Start: 06-10-2018 DISCHARGE PATIENT UNKNO WN PROVIDER Plan of Treatment Date Care Activity Detail Author Start: 12-06-2025 End: 12-06-2025 Patient encounter procedure 12/06/2025 2:00 PM EDT Office Visit [facility] [address] [place] [address] Marilyn Tobar, DO [address] [place], [place] [id number] [facility] Start: 11-29-2024 End: 11-29-2024 Patient encounter procedure 11/29/2024 2:30 PM EST Office Visit [facility] [address] [place] [address] Marilyn Tobar, DO [address] [place] [address] Arrived [facility] Comment on above: Arrived Start: 11-23-2024 End: 11-23-2024 Patient encounter procedure 11/23/2024 3:00 PM EST Office Visit [facility] [address] [place] [address] Marilyn Tobar, DO [address] [place] [address] [facility] Start: 10-06-2024 End: 10-06-2024 Patient encounter procedure [facility] Comment on above: Arrived Start: 08-30-2024 End: 08-30-2025 C-peptide C-peptide Lab Routine Hormone disorder Expected: 08/30/2024 (Approximate), Expires: 08/30/2025 [facility] Comment on above: Expected: 08/30/2024 (Approximate), Expires: 08/30/2025 Start: 08-30-2024 End: 08-30-2025 Cortisol free Cortisol, free Lab Routine Hormone disorder Expected: 08/30/2024 (Approximate), Expires: 08/30/2025 [facility] Comment on above: Expected: 08/30/2024 (Approximate), Expires: 08/30/2025 Start: 08-30-2024 End: 08-30-2025 Glucose [Mass/volume] in Serum or Plasma Glucose, random Lab Routine Hormone disorder Expected: 08/30/2024 (Approximate), Expires: 08/30/2025 [facility] Comment on above: Expected: 08/30/2024 (Approximate), Expires: 08/30/2025 Start: 08-30-2024 End: 08-30-2025 Insulin, total Insulin, total Lab Routine Hormone disorder Expected: 08/30/2024 (Approximate), Expires: 08/30/2025 [facility] Comment on above: Expected: 08/30/2024 (Approximate), Expires: 08/30/2025 Start: 08-30-2024 End: 08-30-2025 Serotonin serum Serotonin serum Lab Routine Hormone disorder Expected: 08/30/2024 (Approximate), Expires: 08/30/2025 [facility] Comment on above: Expected: 08/30/2024 (Approximate), Expires: 08/30/2025 Start: 08-30-2024 End: 08-30-2025 Thyroglobulin Thyroglobulin Lab Routine Hormone disorder Expected: 08/30/2024 (Approximate), Expires: 08/30/2025 [facility] Comment on above: Expected: 08/30/2024 (Approximate), Expires: 08/30/2025 Start: 08-30-2024 End: 08-30-2025 Thyroglobulin Antibody Thyroglobulin Antibody Lab Routine Hormone disorder Expected: 08/30/2024 (Approximate), Expires: 08/30/2025 [facility] Comment on above: Expected: 08/30/2024 (Approximate), Expires: 08/30/2025 Start: 08-30-2024 End: 08-30-2025 Thyrotropin [Units/volume] in Serum or Plasma [facility] Comment on above: Ordered: 08/30/2024 Expected: 08/30/2024 (Approximate), Expires: 08/30/2025 Start: 08-30-2024 End: 08-30-2024 Patient encounter procedure 08/30/2024 1:10 PM EST Office Visit [facility] [address] [place] [address] Marilyn Tobar DO [address] [place] [address] Arrived [facility] Comment on above: Arrived Cytology Cervical or vaginal smear or scraping study Pap Smear Pathology and Cytology Routine Well woman exam with routine gynecological exam Ordered: 11/29/2024 [facility] Work Phone: Comment on above: Ordered: 11/29/2024 DHEA-sulfate DHEA-sulfate Lab Routine Hormone disorder Ordered: 08/30/2024 [facility] Comment on above: Ordered: 08/30/2024 Estradiol Estradiol Lab Ro utine Hormone disorder Ordered: 08/30/2024 [facility] Work Phone: Comment on above: Ordered: 08/30/2024 Estrone Estrone Lab Rout ine Hormone disorder Ordered: 08/30/2024 [facility] Comment on above: Ordered: 08/30/2024 Ferritin [Mass/volum e] in Serum or Plasma Ferritin Lab Routine Hormone disorder Ordered: 08/30/2024 [facility] Comment on above: Ordered: 08/30/2024 Hemoglobin A1c/Hemoglobin.total in Blood Hemoglobin A1c Lab Routine Hormone disorder Ordered: 08/30/2024 [facility] Comment on above: Ordered: 08/30/2024 Human papilloma viru s DNA [Presence] in Unspecified specimen by Probe with amplification HPV DNA probe, amplified Microbiology Routine Well woman exam with routine gynecological exam Ordered: 11/29/2024 [facility] Comment on above: Ordered: 11/29/2024 Progesterone Progesterone Lab Routine Hormone disorder Ordered: 08/30/2024 [facility] Comment on above: Ordered: 08/30/2024 Sex hormone binding globulin Sex hormone binding globulin Lab Routine Hormone disorder Ordered: 08/30/2024 [facility] Comment on above: Ordered: 08/30/2024 T3, reverse T3, reverse Lab Routine Hormone disorder Ordered: 08/30/2024 [facility] Comment on above: Ordered: 08/30/2024 TESTOSTERONE, FREE TESTOSTERONE, FREE Lab Routine Hormone disorder Ordered: 08/30/2024 [facility] Comment on above: Ordered: 08/30/2024 Testosterone, free, total Testos terone, free, total Lab Routine Hormone disorder Ordered: 08/30/2024 [facility] Comment on above: Ordered: 08/30/2024 Thyroid peroxidase antibody Thyroid peroxidase antibody Lab Routine Hormone disorder Ordered: 08/30/2024 [facility] Comment on above: Ordered: 08/30/2024 Thyroxine (T4) free [Mass/volume] in Serum or Plasma T4, free Lab Routine Hormone disorder Ordered: 08/30/2024 [facility] Comment on above: Ordered: 08/30/2024 Triiodothyronine (T3 ) Free [Mass/volume] in Serum or Plasma T3, free Lab Routine Hormone disorder Ordered: 08/30/2024 [facility] Comment on above: Ordered: 08/30/2024 Vitamin D 1,25 dihydroxy Vitamin D 1,25 dihydroxy Lab Routine Hormone disorder Ordered: 08/30/2024 [facility] Comment on above: Ordered: 08/30/2024 Payers Date Payer Category Payer Medicaid (Managed Care) [facility] MEDICAID [id number] 2018 Unknown [id number] 1990 Unknown [id number] 1990 Unknown [id number] 1991 Unknown [id number] 1991 Unknown [id number] 1991 Unknown [id number] 1959 Unknown [id number] Social History Date Type Detail Facility Tobacco smoking stat [facility] Tobacco smoking consumption unknown [facility] Start: 1990 Sex assigned at Female [facility] Start: 08-05-2024 Gender identity Identifies as female gender (finding) [facility] Start: 08-05-2024 Sexual orientation Heterosexual (fin dereck) [facility] History of Present illness Narrative 11-29-2024 Magnolia Calvo LPN - 11/29/2024 2:30 PM EST Note Date & Type Note Facility 11-29-2024 History of Presen t illness Narrative Reason for Appointment: Patient ID: Starla Rod is a 34 y.o. female who presents for Well Women Visit Patient presents today for Annual Exam. MEDICATIONS No current outpatient medications ALLERGIES Allergies Allergen Reactions Penicillins Anaphylaxis, Hives, Shortness of breath and Wheezing PROBLEMS Active Ambulatory Problems Diagnosis Date Noted Hormone imbalance 10/06/2024 Mood changes 10/06/2024 Memory loss 10/06/2024 Resolved Ambulatory Problems Diagnosis Date Noted No [...] systems reviewed and are negative. OBJECTIVE Objective: OBGyn Exam Vitals: There is no height or weight on file to calculate BMI. BP: 100/60 Patient's last menstrual period was 11/20/2024 (within days). ASSESSMENT & PLAN ICD-10-CM 1. Well woman exam with routine gynecological exam Z01.419 Pap Smear HPV DNA probe, amplified Annual Exam: Patient presents today for an annual exam. Patient states she is doing well and has no complaints. Pap was obtained without difficulty. Orders Placed This Encounter Procedures HPV DNA probe, amplified Follow Up: Patient is to return in one year for annual unless needed otherwise. Documented by Magnolia Calvo LPN on behalf of: Marilyn Tobar DO documented in this encounter [facility] History of Present illness Narrative 10-06-2024 Magnolia [...] nursing note reviewed. Exam conducted with a ui software developer present. Vitals: There is no height or [...] approaches as well. Patient given website for [employer] in [place]. Patient to schedule annual appointment on her way out of office. Documented by Magnolia Calvo LPN on behalf of: Mrailyn Tobar DO documented in this encounter [facility] [...] nursing note reviewed. Exam conducted with a ui software developer present. Vitals: There is no height or [...] loss documented in this encounter [facility] Evaluation note Note Date & Type Note Facility Evaluation note Diagnosis Well woman exam with routine gynecological exam Routine gynecological examination documented in this encounter [facility] Summary Purpose Family History No Family History Records FoundNo Family History Records FoundNo Family History Records FoundNo Family History Records Found Advance Directives No Advanced Directives Records FoundNo Advanced Directives Records FoundNo Advanced Directives Records FoundNo Advanced Directives Records Found Additional Source Comments INFORMATION SOURCE (unrecogn ized section and content) DATE CREATED AUTHOR 07/12/2018 [facility] DATE CREATED AUTHOR AUTHOR'S ORGANIZ ATION 06/18/2020 [facility] DATE CREATED AUTHOR AUTHOR'S ORGANIZ ATION 12/16/2022 [facility] DATE CREATED AUTHOR AUTHOR'S ORGANIZ ATION 12/01/2024 [facility] EPIC Reason for Visit (unrecogniz ed section and content) Reason Comments hormones changes Reason Comments Follow-up Reason Comments Well Women Visit FOR RECORDS PERTAINING TO PATIENTS WHO ARE [...] BE BASED ON THE PRIMARY CLINICAL RECORDS. [facility]. provides no warranty or guarantee of the accuracy or completeness of information in this document.
--- NOTE | 2025-05-19 08:33 | ECG_ITS ---
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: : 1990 Requested By: [id number] Order Number: [id number] Reading MD: DONY CAMPBELL Measurements Intervals [place] Rate: 112 P: 90 OK: 96 QRS: 75 QRSD: 102 T: 66 QT: 360 QTc: 427 Interpretive Statements 1120 Sinus tachycardia 2210 Short OK interval 2440 Incomplete right bundle branch block 9150 abnormal ECG Compared to ECG 05/19/2025 08:25:44 Short OK interval now present Supraventricular tachycardia no longer present ST (T wave) deviation no longer present Indeterminate axis no longer present Right ventricular hypertrophy no longer present Electronically Signed On 05-22-2025 12:19:27 EDT by DONY CAMPBELL
--- NOTE | 2025-05-19 08:38 | ECG_ITS ---
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
[2025-05-19 08:44] LABS: Hematocrit 42.0 % (36.0-48.0); Hemoglobin 14.5 g/dL (12.0-16.0); Mean Corpuscular HGB Conc 34.5 g/dL (29.9-35.2); Mean Corpuscular Hemoglobin 29.7 pg (26.7-34.0); Mean Corpuscular Volume 85.9 fL (81.0-99.0); Platelet Count 329 10^3/uL (150-450); Red Blood Count 4.89 10^6/uL (4.20-5.40); White Blood Count 6.9 10^3/uL (4.0-11.0)
--- NOTE | 2025-05-19 08:56 | ED.GENADUL1 ---
HPI HPI - General Adult General Chief complaint: Chest Pain Stated complaint: fast heart rate Time Seen by Provider: 05/19/25 08:19 Source: patient Mode of arrival: walk-in Limitations: no limitations History of Present Illness HPI narrative: Patient is a 34-year-old female presenting to the emergency department with complaints of chest pain. Patient states that symptoms began 45 minutes ago. She states it feels like her heart is racing. She states the pain rating to her chest into her neck. She also has some numbness/tingling in her bilateral upper extremities. She states this has never happened to her before. She states she takes Vyvanse 40 mg daily and occasionally drinks caffeinated beverages. No recent changes in her medications. She is otherwise at her baseline state of health. She denies any abdominal pain, nausea, or vomiting. She denies being . No family history of sudden cardiac . No history of thyroid disease. Related Data Home Medications ?Medication ?Instructions ?Recorded ?Confirmed lisdexamfetamine 30 mg capsule mg 05/19/25 (Vyvanse) Allergies Allergy/AdvReac Type Severity Reaction Status Date / Time Penicillins AdvReac Mild Unknown Verified 05/19/25 08:39 Opioid HPI Opioid Management Most Recent Opioid Data: Last Pain Scale 7 01/20/24, 11:23 Review of Systems ROS Status of ROS 10 or more systems reviewed and unremarkable except as noted in history and below Exam Narrative Exam Narrative: CONSTITUTIONAL: Appears uncomfortable, awake and alert, mentating appropriately SKIN: [was warm and dry]. EYES: No conjunctival pallor. EARS, NOSE, THROAT: No JVD. Moist oral mucosa. No goiter or neck swelling. RESPIRATORY: [Clear to auscultation bilaterally, no wheezes, crackles, or stridor, no use of accessory muscles] CARDIOVASCULAR: [Tachycardic rate and regular rhythm. There is no S3, S4, murmur, rub. Radial pulses are 2+ and symmetrical.] GASTROINTESTINAL: [Abdomen was soft, non-tender, and non-distended. There is no guarding or rebound tenderness] MUSCULOSKELETAL: [There was no lower extremity edema, erythema, or tenderness.] NEUROLOGIC: [Patient is awake and alert. Moving all extremities equally. Facies were symmetrical.] Constitutional Vital Signs, click to edit/add: Last Vital Signs Pulse 94 H 05/19/25 10:07 Resp 20 05/19/25 10:07 BP 111/74 05/19/25 10:07 Pulse Ox 100 05/19/25 10:07 O2 Del Method Nasal Cannula 05/19/25 08:32 Course Vital Signs Vital signs: Vital Signs Pulse Rate 233 H 05/19/25 08:27 Blood Pressure 110/60 05/19/25 08:27 Pulse Rate 94 H 05/19/25 10:07 Respiratory Rate 20 05/19/25 10:07 Blood Pressure 111/74 05/19/25 10:07 Pulse Oximetry 100 05/19/25 10:07 Oxygen Delivery Method Nasal Cannula 05/19/25 08:32 Medical Decision Making MDM Narrative Medical decision making narrative: Patient is a 34-year-old female, history significant for Vyvanse and caffeine use, presenting to the emergency department with a 45 minutes history of chest pain and palpitations. Vital signs in the significant for tachycardia with a heart rate of 233. She is otherwise afebrile and hemodynamically stable with a normal blood pressure. Patient was placed on the hospital monitor that demonstrated SVT by my interpretation. Twelve-lead EKG was obtained which demonstrated narrow complex tachycardia, consistent with supraventricular tachycardia. Triage EKG @ 08:25: Narrow complex tachycardia at a rate of [address] segment elevations. No obvious P waves identified. Final impression: Supraventricular tachycardia. Differential diagnosis includes caffeine/stimulant induced tachyarrhythmia, hyperthyroidism, WPW, or other electrolyte/metabolic derangement. IV was established and laboratory studies were obtained. After obtaining verbal consent for this emergent procedure, she was given 6 mg IV adenosine with immediate conversion to normal sinus rhythm. Repeat EKG s/p 6 mg IV adenosine @ 9:02 : Normal sinus rhythm at a rate of 82. Normal axis. No ST segment elevations. QRS, IA, and QTc interval within normal limits. No delta wave. Final impression: Normal sinus rhythm without evidence of acute myocardial ischemia or Porkj-Okluujtpm-Mrhsp syndrome. Laboratory studies were unremarkable. No significant electrolyte or metabolic derangement. There is mild hypokalemia, which is likely related to hyperventilation no evidence of acute kidney injury. No anemia, leukocytosis, or thrombocytopenia. test negative. On reevaluation, patient feels improved and is requesting to be discharged. She has been monitored in the emergency department for an hour and a half after chemical cardioversion. She remains in normal sinus rhythm with a normal heart rate. Repeat blood pressure is normal, she is hemodynamically stable. Unclear as to the exact etiology behind the patient's episode of SVT, though it may be related to Vyvanse/caffeine use. She has no EKG findings suggestive of WPW or other conduction abnormalities. I do believe the patient is stable for discharge at this time. They were instructed to follow up with their PCP in the next 5 to 7 days for further care. Return precautions were given including any new or worsening symptoms, including recurrence of her chest pain/palpitations. Patient understands and agrees to the plan. FINAL IMPRESSION: Acute supraventricular tachycardia, resolved DISPOSITION: Home CONDITION: Good Medical Records Medical records reviewed: Yes I reviewed the patient's medical records Lab Data Lab results reviewed: Yes I reviewed the patient's lab results Labs: Lab Results 05/19/25 Range/Units 08:30 WBC 6.9 (4.0-11.0) 10^3/uL RBC 4.89 (4.20-5.40) 10^6/uL Hgb 14.5 (12.0-16.0) g/dL Hct 42.0 (36.0-48.0) % MCV 85.9 (81.0-99.0) fL MCH 29.7 (26.7-34.0) pg MCHC 34.5 (29.9-35.2) g/dL RDW 12.6 (11.0-15.0) % Plt Count 329 (150-450) 10^3/uL MPV 11.0 (9.5-13.5) fL Sodium 140 (136-145) mmol/L Potassium 3.3 L (3.5-5.1) mmol/L Chloride 103 (98-107) mmol/L Carbon Dioxide 22.0 (21.0-32.0) mmol/L Anion Gap 18.3 BUN 8.0 (7.0-18.0) mg/dL Creatinine 0.88 (0.55-1.02) mg/dL Est GFR ( Amer) >60 (>=60 mL/min/1.73m^2) Est GFR (Non-Af Amer) >60 (>=60 mL/min/1.73m^2) BUN/Creatinine Ratio 9.1 Glucose 180 H (74-106) mg/dL Calcium 9.6 (8.5-10.1) mg/dL Magnesium 1.8 (1.8-2.4) mg/dL TSH 2.215 (0.358-3.740) uIU/mL Serum HCG, Qual Negative (NEGATIVE) ECG Data Attestation: I personally reviewed and interpreted this ECG as follows: Critical Care Time Critical Care Time Critical Care Time: Yes Total Critical Care Time: 32 Attestation: Due to a high probability of clinically significant, life threatening deterioration, the patient required my highest level of preparedness to intervene emergently and I personally spent this critical care time directly and personally managing the patient. This critical care time included obtaining a history; examining the patient; pulse oximetry; ordering and review of studies; arranging urgent treatment with development of a management plan; evaluation of patient's response to treatment; frequent reassessment; and, discussions with other providers. This critical care time was performed to assess and manage the high probability of imminent, life-threatening deterioration that could result in multi-organ failure. It was exclusive of separately billable procedures and treating other patients and teaching time. Discharge Plan Discharge Chief Complaint: Chest Pain Clinical Impression: SVT (supraventricular tachycardia) Patient Disposition: Home, Self-Care Time of Disposition Decision: 09:44 Condition: Good Prescriptions / Home Meds: No Action lisdexamfetamine [Vyvanse] 30 mg capsule Print Language: Georgian Instructions: Supraventricular Tachycardia (ED) Referrals: Warner Yao MD [Primary Care Provider, [facility]] - 1 week Discharge Date/Time: 05/19/25 10:09
--- NOTE | 2025-05-19 09:02 | ECG_ITS ---
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
[2025-05-19 09:05] LABS: Anion Gap 18.3; Blood Urea Nitrogen 8.0 mg/dL (7.0-18.0); Calcium 9.6 mg/dL (8.5-10.1); Carbon Dioxide 22.0 mmol/L (21.0-32.0); Chloride 103 mmol/L (98-107); Estimated GFR (African America >60 (>=60 mL/min/1.73m^2); Estimated GFR (Non-African Ame >60 (>=60 mL/min/1.73m^2); Glucose 180 mg/dL (74-106); Magnesium 1.8 mg/dL (1.8-2.4); Potassium 3.3 mmol/L (3.5-5.1); Sodium 140 mmol/L (136-145); Thyroid Stimulating Hormone 2.215 uIU/mL (0.358-3.740)
--- NOTE | 2025-05-19 09:28 | PC.NURSE ---
no chest pain at this time- patient c/o feeling dizzy. dr mesa-new orders obtained
== END 2025-05-19 10:09 | disposition home or self-care (01) ==
PROVIDERS: Emergency Provider Student in an Organized Health Care Education/Training Program; PCP Family Medicine
DX: I47.10 Supraventricular tachycardia, unspecified (principal)
CPT/HCPCS: 36415; 80048; 83735; 84443; 84703; 85027; 93005; 96374; 99284

== ENCOUNTER 2025-05-22 11:16 | Outpatient (OUT) | payer OTHER, SELFPAY ==
--- OUTSIDE RECORDS SUMMARY | 2025-05-22 11:33 | XMS_ITS | CCD ---
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 Name Role Phone PROVIDER, UNKNOWN Unavailable Unavailable [...] source) Penicillins Drug allergy (disorder) 3 [facility] Repository (8 sources) Penicillins Propensity to adverse reactions 0 Anaphylaxis, Hives, Shortness of breath, Wheezing [facility] Healthcare Work Phone: Medications Current Medications [...] Test Name Value Interpretation Reference Range Facility [facility] HEMOGLOBIN A1Con 024 Glucose [Mass/Vol] 100 mg/dL [facility] HbA1c (Bld) [Mass fraction] 5.1 % 4.5 - 6.2 % [facility] Comment on above: ADA RECOMMENDED LIMI T 4.0 - 6.0 ADA THERAPEUTIC TARGET < 7.0 ACTION SUGGESTED > 7.0 [facility] H PYLORI ANTIBODY IGGon 11-26 H. PYLORI IGG ABS 0.34 Index Value Normal 0.00-0.79 [facility] Comment on above: Result Comment: Nega tive <0.80 Equivocal 0.80 - 0.89 Positive >0.89 Performed By: #### T 7, RANDAL, LIPA, CMP, LIPID, TSH #### [facility] [address] [address] [address] Lisa Chong INSULINon 12-10-2022 Insulin 15.6 uIU/mL Normal 2.6-24.9 [facility] Comment on above: Performed By: #### I NSULIN #### [facility] [address] [place] [address] Dr. Lisa Chong AMYLASEon 12-09-2022 Amylase [Catalytic activity/Vol] 59 U/L Normal 25-115 [facility] Comment on above: Performed By: #### T 7, RANDAL, LIPA, CMP, LIPID, TSH #### [facility] [address] [place] [address] Dr. Lisa Chong CBC AUTO DIFFon 12-09-2022 BASO # 0.0 103/ul Normal 0.0-0.1 [facility] Comment on above: Performed By: #### T 7, RANDAL, LIPA, CMP, LIPID, TSH #### [facility] [address] [place] [address] Dr. Lisa Chong Basophils/100 WBC (Bld) 0.5 % Normal 0.2-2.0 [facility] Comment on above: Performed By: #### T 7, RANDAL, LIPA, CMP, LIPID, TSH #### [facility] [address] [place] [address] Dr. Lisa Chong EO # 0.0 103/ul Normal 0.0-0.7 [facility] Comment on above: Performed By: #### T 7, RANDAL, LIPA, CMP, LIPID, TSH #### [facility] [address] [place] [address] Dr. Lisa Chong Eosinophils/100 WBC (Bld) 0.0 % Critically low 0.9-7.0 [facility] Comment on above: Performed By: #### T 7, RANDAL, LIPA, CMP, LIPID, TSH #### [facility] [address] [place] [address] Dr. Lisa Chong Erythrocyte distribution width (RBC) [Ratio] 12.9 % Normal 11.0-15.0 [facility] Comment on above: Performed By: #### T 7, RANDAL, LIPA, CMP, LIPID, TSH #### [facility] [address] [place] [address] Dr. Lisa Chong Hematocrit (Bld) [Volume fraction] 42.7 % Normal 36.0-48.0 [facility] Comment on above: Performed By: #### T 7, RANDAL, LIPA, CMP, LIPID, TSH #### [facility] [address] [place] [address] Dr. Lisa Chong Hemoglobin (Bld) [Mass/Vol] 14.4 g/dL Normal 12.0-16.0 [facility] Comment on above: Performed By: #### T 7, RANDAL, LIPA, CMP, LIPID, TSH #### [facility] [address] [place] [address] Dr. Lisa Chong IG # 0.02 10e3/ul Normal 0.00-0.03 [facility] Comment on above: Performed By: #### T 7, RANDAL, LIPA, CMP, LIPID, TSH #### [facility] [address] [place] [address] Dr. Lisa Chong IG % 0.4 % Normal 0.0-0.5 [facility] Comment on above: Performed By: #### T 7, RANDAL, LIPA, CMP, LIPID, TSH #### [facility] [address] [place] [address] Dr. Lisa Chong LYMPH # 1.6 103/ul Normal 1.2-3.8 [facility] Comment on above: Performed By: #### T 7, RANDAL, LIPA, CMP, LIPID, TSH #### [facility] [address] [place] [address] Dr. Lisa Chong Lymphocytes/100 WBC (Bld) 28.0 % Normal 20.5-60.0 [facility] Comment on above: Performed By: #### T 7, RANDAL, LIPA, CMP, LIPID, TSH #### [facility] [address] [place] [address] Dr. Lisa Chong MANUAL DIFF REQ NO Normal [facility] Comment on above: Performed By: #### T 7, RANDAL, LIPA, CMP, LIPID, TSH #### [facility] [address] [place] [address] Dr. Lisa Chong MCH (RBC) [Entitic mass] 28.3 pg Normal 26.7-34.0 [facility] Comment on above: Performed By: #### T 7, RANDAL, LIPA, CMP, LIPID, TSH #### [facility] [address] [place] [address] Dr. Lisa Chong MCHC (RBC) [Mass/Vol] 33.7 g/dL Normal 29.9-35.2 [facility] Comment on above: Performed By: #### T 7, RANDAL, LIPA, CMP, LIPID, TSH #### [facility] [address] [place] [address] Dr. Lisa Chong MCV (RBC) [Entitic vol] 83.9 fL Normal 81.0-99.0 [facility] Comment on above: Performed By: #### T 7, RANDAL, LIPA, CMP, LIPID, TSH #### [facility] [address] [place] [address] Dr. Lisa Chong MONO # 0.3 103/ul Normal 0.3-0.8 [facility] Comment on above: Performed By: #### T 7, RANDAL, LIPA, CMP, LIPID, TSH #### [facility] [address] [place] [address] Dr. Lisa Chong Monocytes/100 WBC (Bld) 5.2 % Normal 1.7-12.0 [facility] Comment on above: Performed By: #### T 7, RANDAL, LIPA, CMP, LIPID, TSH #### [facility] [address] [place] [address] Dr. Lisa Chong NEUT # 3.7 103/ul Normal 1.4-6.5 [facility] Comment on above: Performed By: #### T 7, RANDAL, LIPA, CMP, LIPID, TSH #### [facility] [address] [place] [address] Dr. Lisa Chong Neutrophils/100 WBC (Bld) 65.9 % Normal 43.0-75.0 [facility] Comment on above: Performed By: #### T 7, RANDAL, LIPA, CMP, LIPID, TSH #### [facility] [address] [place] [address] Dr. Lisa Chong Platelet mean volume (Bld) [Entitic vol] 10.1 fL Normal 9.5-13.5 [facility] Comment on above: Performed By: #### T 7, RANDAL, LIPA, CMP, LIPID, TSH #### [facility] [address] [address] [address] Lisa Chong PLT 292 103/ul Normal 150-450 [facility] Comment on above: Performed By: #### T 7, RANDAL, LIPA, CMP, LIPID, TSH #### [facility] [address] [place] [address] Dr. Lisa Chong RBC 5.09 106/ul Normal 4.20-5.40 [facility] Comment on above: Performed By: #### T 7, RANDAL, LIPA, CMP, LIPID, TSH #### [facility] [address] [place] [address] Dr. Lisa Chong WBC 5.6 103/ul Normal 4.0-11.0 [facility] Comment on above: Performed By: #### T 7, RANDAL, LIPA, CMP, LIPID, TSH #### [facility] [address] [place] [address] Dr. Lisa Chong FREE THYROXINE INDEX T7on FTI 3.42 Normal 1.30-4.50 [facility] Comment on above: Performed By: #### T 7, RANDAL, LIPA, CMP, LIPID, TSH #### [facility] [address] [address] [address] Lisa Chong T3U 36.0 % Normal 30.0-39.0 [facility] Comment on above: Performed By: #### T 7, RANDAL, LIPA, CMP, LIPID, TSH #### [facility] [address] [address] [address] Lisa Chong T4 [Mass/Vol] 9.50 ug/dL Normal 4.80-13.90 [facility] Comment on above: Performed By: #### T 7, RANDAL, LIPA, CMP, LIPID, TSH #### [facility] [address] [place] [address] Dr. Lisa Chong GLYCOHEMOGLOBIN A1Con 03-14- 2023 ADA RECOMMENDATION SEE BELOW Normal [facility] Comment on above: Result Comment: ADA RECOMMENDED LIMIT 4.0 - 6.0 ADA THERAPEUTIC TARGET < 7.0 ACTION SUGGESTED > 7.0 Performed By: #### A 1C #### [facility] [address] [place] [address] Dr. Lisa Chong Glucose [Mass/Vol] 103 mg/dL Normal [facility] Comment on above: Performed By: #### A 1C #### [facility] [address] [address] [address] Lisa Chong HbA1c (Bld) [Mass fraction] 5.2 % Normal 4.5-6.2 [facility] Comment on above: Performed By: #### A 1C #### [facility] [address] [place] [address] Dr. Lisa Chong IRONon 12-09-2022 Iron [Mass/Vol] 157.0 ug/dL Normal 50.0-170.0 [facility] Comment on above: Performed By: #### T 7, RANDAL, LIPA, CMP, LIPID, TSH #### [facility] [address] [place] [address] Dr. Lisa Chong LIPASEon 12-09-2022 Lipase [Catalytic activity/Vol] 125.0 U/L Normal 73.0-393.0 [facility] Comment on above: Performed By: #### T 7, RANDAL, LIPA, CMP, LIPID, TSH #### [facility] [address] [place] [address] Dr. Lisa Chong LIPID PROFILEon 12-09-2022 CHOL-HDL RATIO NORM SEE BELOW Normal [facility] Comment on above: Result Comment: 3.3 - 4.4 LOW RISK 4.4 - 7.1 AVERAGE RISK 7.1 - 11.0 MODERATE RISK >11.0 HIGH RISK Performed By: #### T 7, RANDAL, LIPA, CMP, LIPID, TSH #### [facility] [address] [place] [address] Dr. Lisa Chong Cholesterol [Mass/Vol] 198 mg/dL Normal <=200 [facility] Comment on above: Performed By: #### T 7, RANDAL, LIPA, CMP, LIPID, TSH #### [facility] [address] [address] [address] Lisa Chong Cholesterol in HDL [Mass/Vol] 56 mg/dL Normal 40-60 [facility] Comment on above: Performed By: #### T 7, RANDAL, LIPA, CMP, LIPID, TSH #### [facility] [address] [address] [address] Lisa Chong Cholesterol in LDL [Mass/Vol] 123.4 mg/dL Normal [facility] Comment on above: Performed By: #### T 7, RANDAL, LIPA, CMP, LIPID, TSH #### [facility] [address] [place] [address] Dr. Lisa Chong Cholesterol.total/Cho lesterol in HDL [Mass ratio] 3.5 {ratio} Normal [facility] Comment on above: Performed By: #### T 7, RANDAL, LIPA, CMP, LIPID, TSH #### [facility] [address] [place] [address] Dr. Lisa Chong HDL NORMAL > or = 60 mg/dl - LOW CARDIOVASCULAR RISK <40 mg/dl - HIGH CARDIOVASCULAR RISK Normal [facility] Comment on above: Performed By: #### T 7, RANDAL, LIPA, CMP, LIPID, TSH #### [facility] [address] [place] [address] Dr. Lisa Chong LDL CALC NORMAL SEE BELOW Normal [facility] Comment on above: Result Comment: <100 mg/dl OPTIMAL 100 - 129 mg/dl NEAR OR ABOVE OPTIMAL 130 - 159 mg/dl BORDERLINE HIGH 160 - 189 mg/dl HIGH >190 mg/dl VERY HIGH Performed By: #### T 7, RANDAL, LIPA, CMP, LIPID, TSH #### [facility] [address] [place] [address] Dr. Lisa Chong Triglyceride [Mass/Vol] 93 mg/dL Normal <=150 [facility] Comment on above: Performed By: #### T 7, RANDAL, LIPA, CMP, LIPID, TSH #### [facility] [address] [place] [address] Dr. Lisa Chong VLDL CALC 18.6 mg/dL Normal [facility] Comment on above: Performed By: #### T 7, RANDAL, LIPA, CMP, LIPID, TSH #### [facility] [address] [place] [address] Dr. Lisa Chong PROF 14(COMP METB)on 023 Albumin [Mass/Vol] 4.6 g/dL Normal 3.4-5.0 [facility] Comment on above: Performed By: #### T 7, RANDAL, LIPA, CMP, LIPID, TSH #### [facility] [address] [place] [address] Dr. Lisa Chong Albumin/Globulin [Mass ratio] 1.3 {ratio} Normal [facility] Comment on above: Performed By: #### T 7, RANDAL, LIPA, CMP, LIPID, TSH #### [facility] [address] [place] [address] Dr. Lisa Chong ALP [Catalytic activity/Vol] 63 U/L Normal 46-116 [facility] Comment on above: Performed By: #### T 7, RANDAL, LIPA, CMP, LIPID, TSH #### [facility] [address] [place] [address] Dr. Lisa Chong ALT [Catalytic activity/Vol] 18 U/L Normal 14-59 [facility] Comment on above: Performed By: #### T 7, RANDAL, LIPA, CMP, LIPID, TSH #### [facility] [address] [place] [address] Dr. Lisa Chong Anion gap [Moles/Vol] 10.3 mmol/L Normal [facility] Comment on above: Performed By: #### T 7, RANDAL, LIPA, CMP, LIPID, TSH #### [facility] [address] [place] [address] Dr. Lisa Chong AST [Catalytic activity/Vol] 13 U/L Critically low 15-37 [facility] Comment on above: Performed By: #### T 7, RANDAL, LIPA, CMP, LIPID, TSH #### [facility] [address] [place] [address] Dr. Lisa Chong Bilirubin [Mass/Vol] 0.6 mg/dL Normal 0.2-1.0 [facility] Comment on above: Performed By: #### T 7, RANDAL, LIPA, CMP, LIPID, TSH #### [facility] [address] [place] [address] Dr. Lisa Chong Calcium [Mass/Vol] 9.6 mg/dL Normal 8.5-10.1 [facility] Comment on above: Performed By: #### T 7, RANDAL, LIPA, CMP, LIPID, TSH #### [facility] [address] [place] [address] Dr. Lisa Chong Chloride [Moles/Vol] 102 mmol/L Normal 98-107 [facility] Comment on above: Performed By: #### T 7, RANDAL, LIPA, CMP, LIPID, TSH #### [facility] [address] [place] [address] Dr. Lisa Chong CO2 [Moles/Vol] 28.7 mmol/L Normal 21.0-32.0 [facility] Comment on above: Performed By: #### T 7, RANDAL, LIPA, CMP, LIPID, TSH #### [facility] [address] [place] [address] Dr. Lisa Chong Creatinine [Mass/Vol] 0.59 mg/dL Normal 0.55-1.02 [facility] Comment on above: Performed By: #### T 7, RANDAL, LIPA, CMP, LIPID, TSH #### [facility] [address] [place] [address] Dr. Lisa Chong EGFR-AF UZBEK >60 Normal >=60 [facility] Comment on above: Performed By: #### T 7, RANDAL, LIPA, CMP, LIPID, TSH #### [facility] [address] [place] [address] Dr. Lisa Chong EGFR-NON AF UZBEK >60 Normal >=60 [facility] Comment on above: Performed By: #### T 7, RANDAL, LIPA, CMP, LIPID, TSH #### [facility] [address] [place] [address] Dr. Lisa Chong Globulin (S) [Mass/Vol] 3.5 g/dL Normal [facility] Comment on above: Performed By: #### T 7, RANDAL, LIPA, CMP, LIPID, TSH #### [facility] [address] [place] [address] Dr. Lisa Chong Glucose [Mass/Vol] 96 mg/dL Normal 74-106 [facility] Comment on above: Performed By: #### T 7, RANDAL, LIPA, CMP, LIPID, TSH #### [facility] [address] [place] [address] Dr. Lisa Chong Potassium [Moles/Vol] 4.0 mmol/L Normal 3.5-5.1 [facility] Comment on above: Performed By: #### T 7, RANDAL, LIPA, CMP, LIPID, TSH #### [facility] [address] [place] [address] Dr. Lisa Chong Protein [Mass/Vol] 8.1 g/dL Normal 6.4-8.2 [facility] Comment on above: Performed By: #### T 7, RANDAL, LIPA, CMP, LIPID, TSH #### [facility] [address] [place] [address] Dr. Lisa Chong Sodium [Moles/Vol] 137 mmol/L Normal 136-145 [facility] Comment on above: Performed By: #### T 7, RANDAL, LIPA, CMP, LIPID, TSH #### [facility] [address] [place] [address] Dr. Lisa Chong Urea nitrogen [Mass/Vol] 14.0 mg/dL Normal 7.0-18.0 [facility] Comment on above: Performed By: #### T 7, RANDAL, LIPA, CMP, LIPID, TSH #### [facility] [address] [place] [address] Dr. Lisa Chong Urea nitrogen/Creatinine [Mass ratio] 23.7 mg/mg Normal [facility] Comment on above: Performed By: #### T 7, RANDAL, LIPA, CMP, LIPID, TSH #### [facility] [address] [place] [address] Dr. Lisa Chong TSHon 12-09-2022 TSH 0.713 uIU/mL Normal 0.358-3.[address] [facility] Comment on above: Performed By: #### T 7, RANDAL, LIPA, CMP, LIPID, TSH #### [facility] [address] [place] [address] [address] Lisa Chong Covid-19 PCR ([facility])on SARS-CoV-2 (COVID-19) RNA DAVIS+probe Ql (Unsp spec) Not detected Normal NOT DETECTED [facility] Comment on above: Result Comment: [...] for this test is supported by the [employer] Supervisor of Health and Human Service's declaration that [...] used). Performed By: #### C VDTBH #### [facility] [address] [place], [place] [id number] Dr. Lisa Chong INFLUENZA A AND B AGon 09-30 INFLUANEGH SEE BELOW Normal [facility] Comment on above: Result Comment: Nega tive for Flu A protein angiten. Infection due to Flu A cannot be ruled out. Flu A angiten in the sample may be below the detection limit of the test. Performed By: #### I NFLUAB #### [facility] [address] [place] [address] [address] [address] Lisa Chong INFLUBNEG SEE BELOW Normal [facility] Comment on above: Result Comment: Nega tive for Flu B protein antigen. Infection due to Flu B cannot be ruled out. Flu B antigen in the sample may be below the detection limit of the test. Performed By: #### I NFLUAB #### [facility] [address] [address] [address] Lisa Chong INFLUENZA A AG Negative Normal NEGATIVE SEE COMMENT [facility] Comment on above: Performed By: #### I NFLUAB #### [facility] [address] [address] [address] Lisa Chong INFLUENZA B AG Negative Normal NEGATIVE SEE COMMENT [facility] Comment on above: Performed By: #### I NFLUAB #### [facility] [address] [address] [address] Lisa Chong Operative Reporton 0 Operative Report [id number] #1.00CD:127 [facility] Lab Reportson 06-13-2020 Lab Reports [id number] #1.00CD:127 Normal [facility] Formson 05-22-2020 Forms [id number] #1.00CD:127 [facility] Forms [id number]# 1.00CD:127 [facility] Physician Referralon 020 Physician Referral [id number]# 1.00CD:127 Normal [facility] Ambulatory Clinical Summaryo n 05-21-2020 Ambulatory Clinical Summary {[id number]}CD:[id number] [facility] Ambulatory Clinical Summary {[id number]}CD:[id number] [facility] Ambulatory Clinical Summary {[id number]}CD:[id number] Darling Mcdonald [facility] Patient [...] Document Reviewed: 07/11/2010 ExitCare? Patient Information ?2013 [employer]. Darling [facility] Urology Office/Clinic Noteon 05-21-2020 Urology Office/Clinic Note [...] Illness Reviewed UA. Reviewed renal u/s and [employer] paper work. There have been no associated [...] for Macrobid 100mg qd #60 sent to [facility] in [place]. Discussed the medication side effects, and the [...] When Contact Information PREETI ZHOU, Jimbo Linda [facility] [place] [address]- [phone] Additional Instructions: Patient Education Urinary Frequency I, [...] Protein Urine Dipstick: Negative (05/21/20 12:34:00) Specific [place] Urine Dipstick: 1.015 (05/21/20 12:34:00) Urine Appearance Urine Dipstick: Clear (05/21/20 12:34:00) Urine Color Urine Dipstick: Yellow (05/21/20 12:34:00) Urobilinogen Urine Dipstick: Normal 0.2-1 EU/dl (05/21/20 12:34:00) pH Urine Dipstick: 6.5 (05/21/20 12:34:00) Normal [facility] Comment on above: Result Comment: Elec tronically Signed By: PREETI ZHOU, Jimbo Linda\.br\Date and Time Signed: 05/21/20 13:42 EDT\.br\Electronically Co-Signed By: Paula Guerra MA\.br\Date and Time Co-Signed: 05/21/20 13:37 EDT Vital Signs Date Time Vital Sign Value Performing Clinician Nabilai rebeccay 11-29-2024 14:59-0500 Body weight 62.05 kg Marilyn Amadou DO Work Phone: [facility] 11-29-2024 14:59-0500 Diastolic blood pressure 60 mm[Hg] Marilyn Amadou DO Work Phone: [facility] 11-29-2024 14:59-0500 Systolic blood pressure 100 mm[Hg] Marilyn Amadou DO Work Phone: [facility] 10-06-2024 11:10-0500 Body weight 63.56 kg Marilyn Amadou DO Work Phone: [facility] 10-06-2024 11:10-0500 Diastolic blood pressure 62 mm[Hg] Marilyn Amadou DO Work Phone: [facility] 10-06-2024 11:10-0500 Systolic blood pressure 120 mm[Hg] Marilyn Amadou DO Work Phone: [facility] 08-30-2024 13:30-0500 Body weight 62.96 kg Marilyn Amadou DO Work Phone: [facility] 08-30-2024 13:30-0500 Diastolic blood pressure 74 mm[Hg] Marilyn Amadou DO Work Phone: [facility] 08-30-2024 13:30-0500 Systolic blood pressure 112 [...] 06-10-2018 Emergency department patient visit UNKNOWN PROVIDER Facility:[facility] Procedures Date Procedure Procedure Detail Performing Clinician Start: 09-01-2024 MLR HEMOGLOBIN A1C Core y Amadou DO Work Phone: Start: 06-10-2018 DISCHARGE PATIENT UNKNO WN PROVIDER Plan of Treatment Date Care Activity Detail Author Start: 12-06-2025 End: 12-06-2025 Patient encounter procedure 12/06/2025 2:00 PM EDT Office Visit [facility] [address] [place] [address] Marilyn Tobar, DO [address] [place], [place] [id number] [facility] Start: 11-29-2024 End: 11-29-2024 Patient encounter procedure 11/29/2024 2:30 PM EST Office Visit [facility] [address] [place] [address] Marilyn Tobar, DO [address] [place] [address] [facility] Comment on above: Arrived Start: 11-23-2024 End: 11-23-2024 Patient encounter procedure 11/23/2024 3:00 PM EST Office [facility] [address] [place] [address] Marilyn Tobar, DO [address] [place] [address] [facility] Start: 10-06-2024 End: 10-06-[address] [facility] Comment on above: Arrived Start: 08-30-2024 [...] 08-30-2025 Thyrotropin [Units/volume] in Serum or Plasma [facility] Comment on above: Ordered: 08/30/2024 Expected: 08/30/2024 (Approximate), Expires: 08/30/2025 Start: 08-30-2024 End: 08-30-2024 Patient encounter procedure 08/30/2024 1:10 PM EST Office Visit [facility] [address] [place] [address] Marilyn Tobar DO [address] [place] [address] Arrived [facility] Comment on above: Arrived Cytology Cervical or vaginal smear or scraping study Pap Smear Pathology and Cytology Routine Well woman exam with routine gynecological exam Ordered: 11/29/2024 [facility] Work Phone: Comment on above: Ordered: 11/29/2024 DHEA-sulfate DHEA-sulfate Lab Routine Hormone disorder Ordered: 08/30/2024 [facility] Comment on above: Ordered: 08/30/2024 Estradiol Estradiol Lab Ro utine Hormone disorder Ordered: 08/30/2024 [facility] Work Phone: Comment on above: Ordered: 08/30/2024 Estrone Estrone Lab Rout ine Hormone disorder Ordered: 08/30/2024 [facility] Comment on above: Ordered: 08/30/2024 Ferritin [Mass/volum e] in Serum or Plasma Ferritin Lab Routine Hormone disorder Ordered: 08/30/2024 [facility] Comment on above: Ordered: 08/30/2024 Hemoglobin A1c/Hemoglobin.total in Blood Hemoglobin A1c Lab Routine Hormone disorder Ordered: 08/30/2024 [facility] Comment on above: Ordered: 08/30/2024 Human papilloma viru s DNA [Presence] in Unspecified specimen by Probe with amplification HPV DNA probe, amplified Microbiology Routine Well woman exam with routine gynecological exam Ordered: 11/29/2024 [facility] Comment on above: Ordered: 11/29/2024 Progesterone Progesterone Lab Routine Hormone disorder Ordered: 08/30/2024 [facility] Comment on above: Ordered: 08/30/2024 Sex hormone binding globulin Sex hormone binding globulin Lab Routine Hormone disorder Ordered: 08/30/2024 [facility] Comment on above: Ordered: 08/30/2024 T3, reverse T3, reverse Lab Routine Hormone disorder Ordered: 08/30/2024 [facility] Comment on above: Ordered: 08/30/2024 TESTOSTERONE, FREE TESTOSTERONE, FREE Lab Routine Hormone disorder Ordered: 08/30/2024 [facility] Comment on above: Ordered: 08/30/2024 Testosterone, free, total Testos terone, free, total Lab Routine Hormone disorder Ordered: 08/30/2024 [facility] Comment on above: Ordered: 08/30/2024 Thyroid peroxidase antibody Thyroid peroxidase antibody Lab Routine Hormone disorder Ordered: 08/30/2024 [facility] Comment on above: Ordered: 08/30/2024 Thyroxine (T4) free [Mass/volume] in Serum or Plasma T4, free Lab Routine Hormone disorder Ordered: 08/30/2024 [facility] Comment on above: Ordered: 08/30/2024 Triiodothyronine (T3 ) Free [Mass/volume] in Serum or Plasma T3, free Lab Routine Hormone disorder Ordered: 08/30/2024 [facility] Comment on above: Ordered: 08/30/2024 Vitamin D 1,25 dihydroxy Vitamin D 1,25 dihydroxy Lab Routine Hormone disorder Ordered: 08/30/2024 [facility] Comment on above: Ordered: 08/30/2024 Payers Date Payer Category Payer Medicaid (Managed Care) [facility] MEDICAID [id number] 2018 Unknown [id number] 1990 Unknown [id number] 1991 Unknown [id number] 1991 Unknown [id number] 1991 Unknown [id number] 1991 Unknown [id number] 1959 Unknown [id number] Social History Date Type Detail Facility Tobacco smoking stat [facility] Tobacco smoking consumption unknown [facility] Start: 1990 Sex assigned at Female [facility] Start: 08-05-2024 Gender identity Identifies as female gender (finding) [facility] Start: 08-05-2024 Sexual orientation Heterosexual (fin dereck) [facility] History of Present illness Narrative 11-29-2024 [...] nursing note reviewed. Exam conducted with a mems device scientist present. Vitals: There is no height or [...] approaches as well. Patient given website for [employer] in [place]. Patient to schedule annual appointment on her [...] nursing note reviewed. Exam conducted with a mems device scientist present. Vitals: There is no height or [...] and content) DATE CREATED AUTHOR 07/12/2018 [facility] DATE CREATED AUTHOR AUTHOR'S ORGANIZ ATION 06/18/2020 [facility] DATE CREATED AUTHOR AUTHOR'S ORGANIZ ATION 12/16/2022 [facility] DATE CREATED AUTHOR AUTHOR'S ORGANIZ ATION 12/01/2024 [facility] EPIC Reason for Visit [...] BE BASED ON THE PRIMARY CLINICAL RECORDS. [facility]. provides no warranty or guarantee of the accuracy or completeness of information in this document.
[2025-05-22 11:36] LABS: Hematocrit 37.6 % (36.0-48.0); Hemoglobin 12.6 g/dL (12.0-16.0); Immature Granulocytes Abs Auto 0.01 10^3/uL (0.00-0.03); Immature Granulocytes Pct Auto 0.2 % (0.0-0.5); Lymphocytes Absolute Auto 1.3 10^3/uL (1.2-3.8); Mean Corpuscular HGB Conc 33.5 g/dL (29.9-35.2); Mean Corpuscular Hemoglobin 29.3 pg (26.7-34.0); Mean Corpuscular Volume 87.4 fL (81.0-99.0); Platelet Count 230 10^3/uL (150-450); Red Blood Count 4.30 10^6/uL (4.20-5.40); White Blood Count 4.7 10^3/uL (4.0-11.0)
[2025-05-22 12:27] LABS: Alanine Aminotransferase 21 U/L (14-59); Albumin Globulin Ratio 1.2; Albumin Level 3.7 g/dL (3.4-5.0); Alkaline Phosphatase 54 U/L (46-116); Anion Gap 12.8; Aspartate Amino Transferase 12 U/L (15-37); Blood Urea Nitrogen 11.0 mg/dL (7.0-18.0); Calcium 8.6 mg/dL (8.5-10.1); Carbon Dioxide 28.5 mmol/L (21.0-32.0); Chloride 105 mmol/L (98-107); Estimated GFR (African America >60 (>=60 mL/min/1.73m^2); Estimated GFR (Non-African Ame >60 (>=60 mL/min/1.73m^2); Free T3 2.45 pg/mL (2.18-3.98); Globulin 3.2 g/dL; Glucose 90 mg/dL (74-106); Potassium 4.3 mmol/L (3.5-5.1); Sodium 142 mmol/L (136-145); Thyroid Stimulating Hormone 1.285 uIU/mL (0.358-3.740); Total Protein 6.9 g/dL (6.4-8.2)
== END 2025-05-22 11:17 | disposition home or self-care (01) ==
LOC: LAB 11:18
PROVIDERS: PCP Family Medicine; Visit Provider Family Medicine
DX: R00.2 Palpitations (principal)
CPT/HCPCS: 36415; 80053; 84436; 84443; 84481; 85025

== ENCOUNTER 2025-05-25 10:09 | Outpatient (OUT) | payer OTHER, SELFPAY ==
--- OUTSIDE RECORDS SUMMARY | 2025-05-25 10:12 | XMS_ITS | Clinical Summary ---
Author Organization [facility] Address [address] [place] [address] Care Team Providers Care Enchilada Maker Name Role Phone Unavailable Primary Care Provider [...] EDT Office Visit [facility] [address] [place] [phone] Alberto Tobar DO [address] [place] [address] Insurance [employer]
--- OUTSIDE RECORDS SUMMARY | 2025-05-25 10:12 | XMS_ITS | Encounter Summary ---
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 [address] Social History Tobacco Use Types Packs/Day Years [...] 2:00 PM EDT Office Visit [facility] [address] [place] [address] [place] [address] Alberto Tobar DO [address] [facility] [address] [place], [place] [id number] documented as of this encounter Procedures Procedure [...]
== END 2025-05-25 10:10 | disposition home or self-care (01) ==
LOC: CARD 10:10
PROVIDERS: PCP Family Medicine; Visit Provider Family Medicine
DX: R00.2 Palpitations (principal); R07.9 Chest pain, unspecified; R55 Syncope and collapse
CPT/HCPCS: 93242

== ENCOUNTER 2025-06-09 07:00 | Outpatient (OUT) | payer OTHER, SELFPAY ==
--- NOTE | 2025-06-09 07:02 | CA_ITS ---
Patient Name: ALEKSANDER MATT MR#: [id number] : 1990 Exam Date: 06/09/2025 Ordering Doctor: DR MISHA BLAKE . ECHOCARDIOGRAM REPORT PROCEDURE: CA ECHO DOPPLER COMPLETE INDICATIONS: Palpitations, chest pain, near syncope COMPARISON: None. DESCRIPTION: COMPLETE ECHOCARDIOGRAM Real-time transthoracic echocardiography with 2D, M-mode, spectral and color flow Doppler performed. QUALITY: Technical quality was good. LEFT VENTRICLE: Normal chamber size. Normal left ventricular wall thickness. Global left ventricular systolic function is normal. No wall motion abnormalities. Calculated left ventricular ejection fraction is 65%. LV EF: DIASTOLIC: Normal diastolic function. ATRIAL SEPTUM: Visually appears intact LEFT ATRIUM: Normal chamber size. RIGHT ATRIUM: Normal chamber size. RIGHT VENTRICLE: Normal chamber size. Normal right ventricular systolic function. TRICUSPID VALVE: Normal mobility and thickness. No stenosis with trace regurgitation. No evidence of pulmonary hypertension.RVSP 26mmHg. MITRAL VALVE: Normal mobility and thickness. No evidence of mitral valve stenosis. There is no mitral annular calcification. No mitral regurgitation. AORTIC VALVE: Normal trileaflet appearance. No visible sclerosis. Normal leaflet mobility. No evidence of aortic valve stenosis. No aortic regurgitation. AORTIC ROOT: Normal diameter and appearance. PULMONIC VALVE: Normal thickness and mobility. No stenosis. No regurgitation. PERICARDIUM: No evidence of pericardial effusion. IVC: Collapes with inspirations. Normal size. PLEURA: CONCLUSION: Normal left ventricle size, wall thickness, and systolic function without wall motion abnormalities, ejection fraction 65% Normal left ventricular diastolic function Normal right ventricular size and systolic function No significant valvular abnormalities Adult Echocardiography Procedure Report Left Ventricle LVEDD (3.7 - 5.6 cm): 4.63 cm LVESD (2.2 - 4.0 cm): 3.10 cm LVIVS thickness (0.6 - 1.2 cm): 0.54 cm LVPW thickness (0.5 - 1.0 cm): 0.62 cm e': 0.17 m/s E - e': 3.80 LVOT Max Gradient: 2.35 mm[Hg] LVOT Area (cm2): 0.77 m/s Peak Velocity (LVOT): 0.77 m/s Mean Velocity (LVOT): 0.52 m/s LVOT Diameter 2.14 cm Left Ventricular Ejection Fraction: 65.47 % Left Atrium LA Volume Index (2D A2C): 26.54 ml/m2 Left Atrium Systolic Dimension: 3.08 cm Mitral Valve MV E to A Ratio: 1.25 Mitral Valve A-Wave Peak Velocity: 0.53 m/s Mitral Valve E-Wave Peak Velocity: 0.66 m/s Right Ventricle RV Internal Diastolic Dimension: 3.07 cm Aorta AO Root Diam: 3.04 cm Ascending Ao Diam: 2.55 cm Aortic Valve AoV Area (Peak Norris): 3.16 cm2, 3.08 cm2 AoV Area (VTI): 2.93 cm2, 2.83 cm2 Peak Velocity(Antegrade Flow): 0.90 m/s, 0.85 m/s Peak Gradient(Antegrade Flow): 3.21 mm[Hg], 2.90 mm[Hg] Mean Velocity(Antegrade Flow): 0.64 m/s, 0.61 m/s Mean Gradient(Antegrade Flow): 1.84 mm[Hg], 1.70 mm[Hg] Velocity Time Integral: 19.26 cm, 17.93 cm Tricuspid Valve Peak Velocity (Regurgitant Flow): 2.00 m/s, 2.40 m/s Pulmonic Valve Mean Gradient: 1.29 mm[Hg], 0.93 mm[Hg], 1.15 mm[Hg] Mean Velocity: 0.53 m/s, 0.45 m/s, 0.50 m/s Peak Velocity: 0.74 m/s Peak Gradient: 2.44 mm[Hg], 1.85 mm[Hg], 2.22 mm[Hg] Right Atrium Right Atrium Systolic Pressure: 23.57 ml, 23.57 ml Dictated by: Jose Angel Diaz MD on 06/09/2025 at 18:16 Approved by: Jose Angel Diaz MD on 06/09/2025 at 18:23
--- OUTSIDE RECORDS SUMMARY | 2025-06-09 07:03 | XMS_ITS | CCD ---
Author Organization [facility] Care Team Providers Care Senior Living Advisor Name Role Phone PROVIDER, UNKNOWN Unavailable [...] source) Penicillins Drug allergy (disorder) 3 [facility] Repository (8 sources) Penicillins Propensity to adverse reactions 0 Anaphylaxis, Hives, Shortness of breath, Wheezing [facility] Healthcare Work Phone: Medications Current Medications [...] Test Name Value Interpretation Reference Range Facility [facility] HEMOGLOBIN A1Con 024 Glucose [Mass/Vol] 100 mg/dL [facility] HbA1c (Bld) [Mass fraction] 5.1 % 4.5 - 6.2 % [facility] Comment on above: ADA RECOMMENDED LIMI T 4.0 - 6.0 ADA THERAPEUTIC TARGET < 7.0 ACTION SUGGESTED > 7.0 [facility] PYLORI ANTIBODY IGGon 11-26 H. PYLORI IGG ABS 0.34 Index Value Normal 0.00-0.79 [facility] Comment on above: Result Comment: Nega tive <0.80 Equivocal 0.80 - 0.89 Positive >0.89 Performed By: #### T 7, RANDAL, LIPA, CMP, LIPID, TSH #### [facility] [address] [address] [address] Lisa Chong INSULINon 12-10-2022 Insulin 15.6 uIU/mL Normal 2.6-24.9 [facility] Comment on above: Performed By: #### I NSULIN #### [facility] [address] [place] [address] Dr. Lisa Chong AMYLASEon 12-09-2022 Amylase [Catalytic activity/Vol] 59 U/L Normal 25-115 [facility] Comment on above: Performed By: #### T 7, RANDAL, LIPA, CMP, LIPID, TSH #### [facility] [address] [place] [address] Dr. Lisa Chong CBC AUTO DIFFon 12-09-2022 BASO # 0.0 103/ul Normal 0.0-0.1 [facility] Comment on above: Performed By: #### T 7, RANDAL, LIPA, CMP, LIPID, TSH #### [facility] [address] [place] [address] Dr. Lisa Chong Basophils/100 WBC (Bld) 0.5 % Normal 0.2-2.0 [facility] Comment on above: Performed By: #### T 7, RANDAL, LIPA, CMP, LIPID, TSH #### [facility] [address] [place] [address] Dr. Lisa Chong EO # 0.0 103/ul Normal 0.0-0.7 [facility] Comment on above: Performed By: #### T 7, RANDAL, LIPA, CMP, LIPID, TSH #### [facility] [address] [place] [address] Dr. Lisa Chong Eosinophils/100 WBC (Bld) 0.0 % Critically low 0.9-7.0 [facility] Comment on above: Performed By: #### T 7, RANDAL, LIPA, CMP, LIPID, TSH #### [facility] [address] [place] [address] Dr. Lisa Chong Erythrocyte distribution width (RBC) [Ratio] 12.9 % Normal 11.0-15.0 [facility] Comment on above: Performed By: #### T 7, RANDAL, LIPA, CMP, LIPID, TSH #### [facility] [address] [place] [address] Dr. Lisa Chong Hematocrit (Bld) [Volume fraction] 42.7 % Normal 36.0-48.0 [facility] Comment on above: Performed By: #### T 7, RANDAL, LIPA, CMP, LIPID, TSH #### [facility] [address] [place] [address] Dr. Lisa Chong Hemoglobin (Bld) [Mass/Vol] 14.4 g/dL Normal 12.0-16.0 [facility] Comment on above: Performed By: #### T 7, RANDAL, LIPA, CMP, LIPID, TSH #### [facility] [address] [place] [address] Dr. Lisa Chong IG # 0.02 10e3/ul Normal 0.00-0.03 [facility] Comment on above: Performed By: #### T 7, RANDAL, LIPA, CMP, LIPID, TSH #### [facility] [address] [place] [address] Dr. Lisa Chong IG % 0.4 % Normal 0.0-0.5 [facility] Comment on above: Performed By: #### T 7, RANDAL, LIPA, CMP, LIPID, TSH #### [facility] [address] [place] [address] Dr. Lisa Chong LYMPH # 1.6 103/ul Normal 1.2-3.8 [facility] Comment on above: Performed By: #### T 7, RANDAL, LIPA, CMP, LIPID, TSH #### [facility] [address] [place] [address] Dr. Lisa Chong Lymphocytes/100 WBC (Bld) 28.0 % Normal 20.5-60.0 [facility] Comment on above: Performed By: #### T 7, RANDAL, LIPA, CMP, LIPID, TSH #### [facility] [address] [place] [address] Dr. Lisa Chong MANUAL DIFF REQ NO Normal [facility] Comment on above: Performed By: #### T 7, RANDAL, LIPA, CMP, LIPID, TSH #### [facility] [address] [place] [address] Dr. Lisa Chong MCH (RBC) [Entitic mass] 28.3 pg Normal 26.7-34.0 [facility] Comment on above: Performed By: #### T 7, RANDAL, LIPA, CMP, LIPID, TSH #### [facility] [address] [place] [address] Dr. Lisa Chong MCHC (RBC) [Mass/Vol] 33.7 g/dL Normal 29.9-35.2 [facility] Comment on above: Performed By: #### T 7, RANDAL, LIPA, CMP, LIPID, TSH #### [facility] [address] [place] [address] Dr. Lisa Chong MCV (RBC) [Entitic vol] 83.9 fL Normal 81.0-99.0 [facility] Comment on above: Performed By: #### T 7, RANDAL, LIPA, CMP, LIPID, TSH #### [facility] [address] [place] [address] Dr. Lisa Chong MONO # 0.3 103/ul Normal 0.3-0.8 [facility] Comment on above: Performed By: #### T 7, RANDAL, LIPA, CMP, LIPID, TSH #### [facility] [address] [place] [address] Dr. Lisa Chong Monocytes/100 WBC (Bld) 5.2 % Normal 1.7-12.0 [facility] Comment on above: Performed By: #### T 7, RANDAL, LIPA, CMP, LIPID, TSH #### [facility] [address] [place] [address] Dr. Lisa Chong NEUT # 3.7 103/ul Normal 1.4-6.5 [facility] Comment on above: Performed By: #### T 7, RANDAL, LIPA, CMP, LIPID, TSH #### [facility] [address] [place] [address] Dr. Lisa Chong Neutrophils/100 WBC (Bld) 65.9 % Normal 43.0-75.0 [facility] Comment on above: Performed By: #### T 7, RANDAL, LIPA, CMP, LIPID, TSH #### [facility] [address] [place] [address] Dr. Lisa Chong Platelet mean volume (Bld) [Entitic vol] 10.1 fL Normal 9.5-13.5 [facility] Comment on above: Performed By: #### T 7, RANDAL, LIPA, CMP, LIPID, TSH #### [facility] [address] [address] [address] Lisa Chong PLT 292 103/ul Normal 150-450 [facility] Comment on above: Performed By: #### T 7, RANDAL, LIPA, CMP, LIPID, TSH #### [facility] [address] [place] [address] Dr. Lisa Chong RBC 5.09 106/ul Normal 4.20-5.40 [facility] Comment on above: Performed By: #### T 7, RANDAL, LIPA, CMP, LIPID, TSH #### [facility] [address] [place] [address] Dr. Lisa Chong WBC 5.6 103/ul Normal 4.0-11.0 [facility] Comment on above: Performed By: #### T 7, RANDAL, LIPA, CMP, LIPID, TSH #### [facility] [address] [place] [address] Dr. Lisa Chong FREE THYROXINE INDEX T7on FTI 3.42 Normal 1.30-4.50 [facility] Comment on above: Performed By: #### T 7, RANDAL, LIPA, CMP, LIPID, TSH #### [facility] [address] [address] [address] Lisa Chong T3U 36.0 % Normal 30.0-39.0 [facility] Comment on above: Performed By: #### T 7, RANDAL, LIPA, CMP, LIPID, TSH #### [facility] [address] [address] [address] Lisa Chong T4 [Mass/Vol] 9.50 ug/dL Normal 4.80-13.90 [facility] Comment on above: Performed By: #### T 7, RANDAL, LIPA, CMP, LIPID, TSH #### [facility] [address] [place] [address] Dr. Lisa Chong GLYCOHEMOGLOBIN A1Con 03-14- 2023 ADA RECOMMENDATION SEE BELOW Normal [facility] Comment on above: Result Comment: ADA RECOMMENDED LIMIT 4.0 - 6.0 ADA THERAPEUTIC TARGET < 7.0 ACTION SUGGESTED > 7.0 Performed By: #### A 1C #### [facility] [address] [place] [address] Dr. Lisa Chong Glucose [Mass/Vol] 103 mg/dL Normal [facility] Comment on above: Performed By: #### A 1C #### [facility] [address] [address] [address] Lisa Chong HbA1c (Bld) [Mass fraction] 5.2 % Normal 4.5-6.2 [facility] Comment on above: Performed By: #### A 1C #### [facility] [address] [place] [address] Dr. Lisa Chong IRONon 12-09-2022 Iron [Mass/Vol] 157.0 ug/dL Normal 50.0-170.0 [facility] Comment on above: Performed By: #### T 7, RANDAL, LIPA, CMP, LIPID, TSH #### [facility] [address] [place] [address] Dr. Lisa Chong LIPASEon 12-09-2022 Lipase [Catalytic activity/Vol] 125.0 U/L Normal 73.0-393.0 [facility] Comment on above: Performed By: #### T 7, RANDAL, LIPA, CMP, LIPID, TSH #### [facility] [address] [place] [address] Dr. Lisa Chong LIPID PROFILEon 12-09-2022 CHOL-HDL RATIO NORM SEE BELOW Normal [facility] Comment on above: Result Comment: 3.3 - 4.4 LOW RISK 4.4 - 7.1 AVERAGE RISK 7.1 - 11.0 MODERATE RISK >11.0 HIGH RISK Performed By: #### T 7, RANDAL, LIPA, CMP, LIPID, TSH #### [facility] [address] [place] [address] Dr. Lisa Chong Cholesterol [Mass/Vol] 198 mg/dL Normal <=200 [facility] Comment on above: Performed By: #### T 7, RANDAL, LIPA, CMP, LIPID, TSH #### [facility] [address] [address] [address] Lisa Chong Cholesterol in HDL [Mass/Vol] 56 mg/dL Normal 40-60 [facility] Comment on above: Performed By: #### T 7, RANDAL, LIPA, CMP, LIPID, TSH #### [facility] [address] [address] [address] Lisa Chong Cholesterol in LDL [Mass/Vol] 123.4 mg/dL Normal [facility] Comment on above: Performed By: #### T 7, RANDAL, LIPA, CMP, LIPID, TSH #### [facility] [address] [place] [address] Dr. Lisa Chong Cholesterol.total/Cho lesterol in HDL [Mass ratio] 3.5 {ratio} Normal [facility] Comment on above: Performed By: #### T 7, RANDAL, LIPA, CMP, LIPID, TSH #### [facility] [address] [place] [address] Dr. Lisa Chong HDL NORMAL > or = 60 mg/dl - LOW CARDIOVASCULAR RISK <40 mg/dl - HIGH CARDIOVASCULAR RISK Normal [facility] Comment on above: Performed By: #### T 7, RANDAL, LIPA, CMP, LIPID, TSH #### [facility] [address] [place] [address] Dr. Lisa Chong LDL CALC NORMAL SEE BELOW Normal [facility] Comment on above: Result Comment: <100 mg/dl OPTIMAL 100 - 129 mg/dl NEAR OR ABOVE OPTIMAL 130 - 159 mg/dl BORDERLINE HIGH 160 - 189 mg/dl HIGH >190 mg/dl VERY HIGH Performed By: #### T 7, RANDAL, LIPA, CMP, LIPID, TSH #### [facility] [address] [place] [address] Dr. Lisa Chong Triglyceride [Mass/Vol] 93 mg/dL Normal <=150 [facility] Comment on above: Performed By: #### T 7, RANDAL, LIPA, CMP, LIPID, TSH #### [facility] [address] [place] [address] Dr. Lisa Chong VLDL CALC 18.6 mg/dL Normal [facility] Comment on above: Performed By: #### T 7, RANDAL, LIPA, CMP, LIPID, TSH #### [facility] [address] [place] [address] Dr. Lisa Chong PROF 14(COMP METB)on 023 Albumin [Mass/Vol] 4.6 g/dL Normal 3.4-5.0 [facility] Comment on above: Performed By: #### T 7, RANDAL, LIPA, CMP, LIPID, TSH #### [facility] [address] [place] [address] Dr. Lisa Chong Albumin/Globulin [Mass ratio] 1.3 {ratio} Normal [facility] Comment on above: Performed By: #### T 7, RANDAL, LIPA, CMP, LIPID, TSH #### [facility] [address] [place] [address] Dr. Lisa Chong ALP [Catalytic activity/Vol] 63 U/L Normal 46-116 [facility] Comment on above: Performed By: #### T 7, RANDAL, LIPA, CMP, LIPID, TSH #### [facility] [address] [place] [address] Dr. Lisa Chong ALT [Catalytic activity/Vol] 18 U/L Normal 14-59 [facility] Comment on above: Performed By: #### T 7, RANDAL, LIPA, CMP, LIPID, TSH #### [facility] [address] [place] [address] Dr. Lisa Chong Anion gap [Moles/Vol] 10.3 mmol/L Normal [facility] Comment on above: Performed By: #### T 7, RANDAL, LIPA, CMP, LIPID, TSH #### [facility] [address] [place] [address] Dr. Lisa Chong AST [Catalytic activity/Vol] 13 U/L Critically low 15-37 [facility] Comment on above: Performed By: #### T 7, RANDAL, LIPA, CMP, LIPID, TSH #### [facility] [address] [place] [address] Dr. Lisa Chong Bilirubin [Mass/Vol] 0.6 mg/dL Normal 0.2-1.0 [facility] Comment on above: Performed By: #### T 7, RANDAL, LIPA, CMP, LIPID, TSH #### [facility] [address] [place] [address] Dr. Lisa Chong Calcium [Mass/Vol] 9.6 mg/dL Normal 8.5-10.1 [facility] Comment on above: Performed By: #### T 7, RANDAL, LIPA, CMP, LIPID, TSH #### [facility] [address] [place] [address] Dr. Lisa Chong Chloride [Moles/Vol] 102 mmol/L Normal 98-107 [facility] Comment on above: Performed By: #### T 7, RANDAL, LIPA, CMP, LIPID, TSH #### [facility] [address] [place] [address] Dr. Lisa Chong CO2 [Moles/Vol] 28.7 mmol/L Normal 21.0-32.0 [facility] Comment on above: Performed By: #### T 7, RANDAL, LIPA, CMP, LIPID, TSH #### [facility] [address] [place] [address] Dr. Lisa Chong Creatinine [Mass/Vol] 0.59 mg/dL Normal 0.55-1.02 [facility] Comment on above: Performed By: #### T 7, RANDAL, LIPA, CMP, LIPID, TSH #### [facility] [address] [place] [address] Dr. Lisa Chong EGFR-AF GAMBIAN >60 Normal >=60 [facility] Comment on above: Performed By: #### T 7, RANDAL, LIPA, CMP, LIPID, TSH #### [facility] [address] [place] [address] Dr. Lisa Chong EGFR-NON AF GAMBIAN >60 Normal >=60 [facility] Comment on above: Performed By: #### T 7, RANDAL, LIPA, CMP, LIPID, TSH #### [facility] [address] [place] [address] Dr. Lisa Chong Globulin (S) [Mass/Vol] 3.5 g/dL Normal [facility] Comment on above: Performed By: #### T 7, RANDAL, LIPA, CMP, LIPID, TSH #### [facility] [address] [place] [address] Dr. Lisa Chong Glucose [Mass/Vol] 96 mg/dL Normal 74-106 [facility] Comment on above: Performed By: #### T 7, RANDAL, LIPA, CMP, LIPID, TSH #### [facility] [address] [place] [address] Dr. Lisa Chong Potassium [Moles/Vol] 4.0 mmol/L Normal 3.5-5.1 [facility] Comment on above: Performed By: #### T 7, RANDAL, LIPA, CMP, LIPID, TSH #### [facility] [address] [place] [address] Dr. Lisa Chong Protein [Mass/Vol] 8.1 g/dL Normal 6.4-8.2 [facility] Comment on above: Performed By: #### T 7, RANDAL, LIPA, CMP, LIPID, TSH #### [facility] [address] [place] [address] Dr. Lisa Chong Sodium [Moles/Vol] 137 mmol/L Normal 136-145 [facility] Comment on above: Performed By: #### T 7, RANDAL, LIPA, CMP, LIPID, TSH #### [facility] [address] [place] [address] Dr. Lisa Chong Urea nitrogen [Mass/Vol] 14.0 mg/dL Normal 7.0-18.0 [facility] Comment on above: Performed By: #### T 7, RANDAL, LIPA, CMP, LIPID, TSH #### [facility] [address] [place] [address] Dr. Lisa Chong Urea nitrogen/Creatinine [Mass ratio] 23.7 mg/mg Normal [facility] Comment on above: Performed By: #### T 7, RANDAL, LIPA, CMP, LIPID, TSH #### [facility] [address] [place] [address] Dr. Lisa Chong TSHon 12-09-2022 TSH 0.713 uIU/mL Normal 0.358-3.740 [facility] Comment on above: Performed By: #### T 7, RANDAL, LIPA, CMP, LIPID, TSH #### [facility] [address] [place] [address] [address] Lisa Chong Covid-19 PCR ([facility])on SARS-CoV-2 (COVID-19) RNA DAVIS+probe Ql (Unsp spec) Not detected Normal NOT DETECTED [facility] Comment on above: Result Comment: [...] for this test is supported by the [place] of Health and Human Service's declaration that [...] used). Performed By: #### C VDTBH #### [facility] [address] [place], [place] [id number] Dr. Lisa Chong INFLUENZA A AND B AGon 09-30 INFLUANEGH SEE BELOW Normal [facility] Comment on above: Result Comment: Nega tive for Flu A protein angiten. Infection due to Flu A cannot be ruled out. Flu A angiten in the sample may be below the detection limit of the test. Performed By: #### I NFLUAB #### [facility] [address] [place] [address] [address] Lisa Chong INFLUBNEG SEE BELOW Normal [facility] Comment on above: Result Comment: Nega tive for Flu B protein antigen. Infection due to Flu B cannot be ruled out. Flu B antigen in the sample may be below the detection limit of the test. Performed By: #### I NFLUAB #### [facility] [address] [address] [address] Lisa Chong INFLUENZA A AG Negative Normal NEGATIVE SEE COMMENT [facility] Comment on above: Performed By: #### I NFLUAB #### [facility] [address] [address] [address] Lisa Chong INFLUENZA B AG Negative Normal NEGATIVE SEE COMMENT [facility] Comment on above: Performed By: #### I NFLUAB #### [facility] [address] [address] [address] Lisa Chong Operative Reporton 0 Operative Report [id number] #1.00CD:127 [facility] Reportson 06-13-2020 Lab Reports [id number] #1.00CD:127 Normal [facility] Formson 05-22-2020 Forms [id number] #1.00CD:127 [facility] Forms [id number]# 1.00CD:127 [facility] Physician Referralon 020 Physician Referral [id number]# 1.00CD:127 Normal [facility] Ambulatory Clinical Summaryo n 05-21-2020 Ambulatory Clinical Summary {[id number]}CD:[id number] [facility] Ambulatory Clinical Summary {[id number]}CD:[id number] [facility] Ambulatory Clinical Summary {[id number]}CD:[id number] Darling Mcdonald [facility] Patient Educationon 05-21-20 20 Patient Education Family [...] Document Reviewed: 07/11/2010 ExitCare? Patient Information ?2013 [employer]. Darling [facility] Urology Office/Clinic Noteon 05-21-2020 Urology Office/Clinic [...] Illness Reviewed UA. Reviewed renal u/s and [employer] paper work. There have been no associated [...] for Macrobid 100mg qd #60 sent to [facility] in [place]. Discussed the medication side effects, and the [...] When Contact Information PREETI ZHOU, Jimbo Linda [facility] [place] [place] [address]- [phone] Additional Instructions: Patient Education Urinary Frequency I, [...] Protein Urine Dipstick: Negative (05/21/20 12:34:00) Specific [place] Urine Dipstick: 1.015 (05/21/20 12:34:00) Urine Appearance Urine Dipstick: Clear (05/21/20 12:34:00) Urine Color Urine Dipstick: Yellow (05/21/20 12:34:00) Urobilinogen Urine Dipstick: Normal 0.2-1 EU/dl (05/21/20 12:34:00) pH Urine Dipstick: 6.5 (05/21/20 12:34:00) Normal [facility] Comment on above: Result Comment: Elec tronically Signed By: PREETI ZHOU, Jimbo Linda\.br\Date and Time Signed: 05/21/20 13:42 EDT\.br\Electronically Co-Signed By: Paula Guerra MA\.br\Date and Time Co-Signed: 05/21/20 13:37 EDT Vital Signs Date Time Vital Sign Value Performing Clinician Nabilai rebeccay 11-29-2024 14:59-0500 Body weight 62.05 kg Marilyn Amadou DO Work Phone: [facility] 11-29-2024 14:59-0500 Diastolic blood pressure 60 mm[Hg] Marilyn Amadou DO Work Phone: [facility] 11-29-2024 14:59-0500 Systolic blood pressure 100 mm[Hg] Marilyn Amadou DO Work Phone: [facility] 10-06-2024 11:10-0500 Body weight 63.56 kg Marilyn Amadou DO Work Phone: [facility] 10-06-2024 11:10-0500 Diastolic blood pressure 62 mm[Hg] Marilyn Amadou DO Work Phone: [facility] 10-06-2024 11:10-0500 Systolic blood pressure 120 mm[Hg] Marilyn Amadou DO Work Phone: [facility] 08-30-2024 13:30-0500 Body weight 62.96 kg Marilyn Amadou DO Work Phone: [facility] 08-30-2024 13:30-0500 Diastolic blood pressure 74 mm[Hg] Marilyn Amadou DO Work Phone: [facility] 08-30-2024 13:30-0500 Systolic blood [...] 06-10-2018 Emergency department patient visit UNKNOWN PROVIDER Facility:[facility] Procedures Date Procedure Procedure Detail Performing Clinician Start: 09-01-2024 MLR HEMOGLOBIN A1C Core y Amadou DO Work Phone: Start: 06-10-2018 DISCHARGE PATIENT UNKNO WN PROVIDER Plan of Treatment Date Care Activity Detail Author Start: 12-06-2025 End: 12-06-2025 Patient encounter procedure 12/06/2025 2:00 PM EDT Office Visit [facility] [address] [place] [address] Marilyn Tobar, DO [address] [place], [place] [id number] [facility] Start: 11-29-2024 End: 11-29-2024 Patient encounter procedure 11/29/2024 2:30 PM EST Office Visit [facility] [address] [place] [address] Marilyn Tobar, DO [address] [place] [address] Arrived [facility] Comment on above: Arrived Start: 11-23-2024 End: 11-23-2024 Patient encounter procedure 11/23/2024 3:00 PM EST Office Visit [facility] [address] [place] [address] Marilyn Tobar, DO [address] [place] [address] [facility] Start: 10-06-2024 End: 10-06-2024 Patient encounter procedure [facility] Comment on above: Arrived Start: 08-30-2024 End: 08-30-2025 C-peptide C-peptide Lab Routine Hormone disorder Expected: 08/30/2024 (Approximate), Expires: 08/30/2025 [facility] Comment on above: Expected: 08/30/2024 (Approximate), Expires: 08/30/2025 Start: 08-30-2024 End: 08-30-2025 Cortisol free Cortisol, free Lab Routine Hormone disorder Expected: 08/30/2024 (Approximate), Expires: 08/30/2025 [facility] Comment on above: Expected: 08/30/2024 (Approximate), Expires: 08/30/2025 Start: 08-30-2024 End: 08-30-2025 Glucose [Mass/volume] in Serum or Plasma Glucose, random Lab Routine Hormone disorder Expected: 08/30/2024 (Approximate), Expires: 08/30/2025 [facility] Comment on above: Expected: 08/30/2024 (Approximate), Expires: 08/30/2025 Start: 08-30-2024 End: 08-30-2025 Insulin, total Insulin, total Lab Routine Hormone disorder Expected: 08/30/2024 (Approximate), Expires: 08/30/2025 [facility] Comment on above: Expected: 08/30/2024 (Approximate), Expires: 08/30/2025 Start: 08-30-2024 End: 08-30-2025 Serotonin serum Serotonin serum Lab Routine Hormone disorder Expected: 08/30/2024 (Approximate), Expires: 08/30/2025 [facility] Comment on above: Expected: 08/30/2024 (Approximate), Expires: 08/30/2025 Start: 08-30-2024 End: 08-30-2025 Thyroglobulin Thyroglobulin Lab Routine Hormone disorder Expected: 08/30/2024 (Approximate), Expires: 08/30/2025 [facility] Comment on above: Expected: 08/30/2024 (Approximate), Expires: 08/30/2025 Start: 08-30-2024 End: 08-30-2025 Thyroglobulin Antibody Thyroglobulin Antibody Lab Routine Hormone disorder Expected: 08/30/2024 (Approximate), Expires: 08/30/2025 [facility] Comment on above: Expected: 08/30/2024 (Approximate), Expires: 08/30/2025 Start: 08-30-2024 End: 08-30-2025 Thyrotropin [Units/volume] in Serum or Plasma [facility] Comment on above: Ordered: 08/30/2024 Expected: 08/30/2024 (Approximate), Expires: 08/30/2025 Start: 08-30-2024 End: 08-30-2024 Patient encounter procedure 08/30/2024 1:10 PM EST Office Visit [facility] OB [address] [place] [address] Marilyn Tobar DO [address] [place] [address] Arrived [facility] Comment on above: Arrived Cytology Cervical or vaginal smear or scraping study Pap Smear Pathology and Cytology Routine Well woman exam with routine gynecological exam Ordered: 11/29/2024 [facility] Work Phone: Comment on above: Ordered: 11/29/2024 DHEA-sulfate DHEA-sulfate Lab Routine Hormone disorder Ordered: 08/30/2024 [facility] Comment on above: Ordered: 08/30/2024 Estradiol Estradiol Lab Ro utine Hormone disorder Ordered: 08/30/2024 [facility] Work Phone: Comment on above: Ordered: 08/30/2024 Estrone Estrone Lab Rout ine Hormone disorder Ordered: 08/30/2024 [facility] Comment on above: Ordered: 08/30/2024 Ferritin [Mass/volum e] in Serum or Plasma Ferritin Lab Routine Hormone disorder Ordered: 08/30/2024 [facility] Comment on above: Ordered: 08/30/2024 Hemoglobin A1c/Hemoglobin.total in Blood Hemoglobin A1c Lab Routine Hormone disorder Ordered: 08/30/2024 [facility] Comment on above: Ordered: 08/30/2024 Human papilloma viru s DNA [Presence] in Unspecified specimen by Probe with amplification HPV DNA probe, amplified Microbiology Routine Well woman exam with routine gynecological exam Ordered: 11/29/2024 [facility] Comment on above: Ordered: 11/29/2024 Progesterone Progesterone Lab Routine Hormone disorder Ordered: 08/30/2024 [facility] Comment on above: Ordered: 08/30/2024 Sex hormone binding globulin Sex hormone binding globulin Lab Routine Hormone disorder Ordered: 08/30/2024 [facility] Comment on above: Ordered: 08/30/2024 T3, reverse T3, reverse Lab Routine Hormone disorder Ordered: 08/30/2024 [facility] Comment on above: Ordered: 08/30/2024 TESTOSTERONE, FREE TESTOSTERONE, FREE Lab Routine Hormone disorder Ordered: 08/30/2024 [facility] Comment on above: Ordered: 08/30/2024 Testosterone, free, total Testos terone, free, total Lab Routine Hormone disorder Ordered: 08/30/2024 [facility] Comment on above: Ordered: 08/30/2024 Thyroid peroxidase antibody Thyroid peroxidase antibody Lab Routine Hormone disorder Ordered: 08/30/2024 [facility] Comment on above: Ordered: 08/30/2024 Thyroxine (T4) free [Mass/volume] in Serum or Plasma T4, free Lab Routine Hormone disorder Ordered: 08/30/2024 [facility] Comment on above: Ordered: 08/30/2024 Triiodothyronine (T3 ) Free [Mass/volume] in Serum or Plasma T3, free Lab Routine Hormone disorder Ordered: 08/30/2024 [facility] Comment on above: Ordered: 08/30/2024 Vitamin D 1,25 dihydroxy Vitamin D 1,25 dihydroxy Lab Routine Hormone disorder Ordered: 08/30/2024 [facility] Comment on above: Ordered: 08/30/2024 Payers Date Payer Category Payer Medicaid (Managed Care) [employer] [id number] 2018 Unknown [id number] 1990 Unknown [id number] 1990 Unknown [id number] 1991 Unknown [id number] 1991 Unknown [id number] 1991 Unknown [id number] 1959 Unknown [id number] Social History Date Type Detail Facility Tobacco smoking stat [facility] Tobacco smoking consumption unknown [facility] Start: 1990 Sex assigned at Female [facility] Start: 08-05-2024 Gender identity Identifies as female gender (finding) [facility] Start: 08-05-2024 Sexual orientation Heterosexual (fin dereck) [facility] History of Present illness [...] nursing note reviewed. 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 Vitals: There is no height or [...] approaches as well. Patient given website for [employer] [facility] [place]. Patient to schedule annual appointment on her [...] nursing note reviewed. 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 Vitals: There is no height or [...] and content) DATE CREATED AUTHOR 07/12/2018 [facility] DATE CREATED AUTHOR AUTHOR'S ORGANIZ ATION 06/18/2020 [facility] DATE CREATED AUTHOR AUTHOR'S ORGANIZ ATION 12/16/2022 [facility] DATE CREATED AUTHOR AUTHOR'S ORGANIZ ATION 12/01/2024 [facility] EPIC Reason for Visit [...] BE BASED ON THE PRIMARY CLINICAL RECORDS. [facility] provides no warranty or guarantee of the accuracy or completeness of information in this document.
== END 2025-06-09 07:01 | disposition home or self-care (01) ==
LOC: CARD 07:00
PROVIDERS: PCP Family Medicine; Visit Provider Family Medicine
DX: R00.2 Palpitations (principal); R07.9 Chest pain, unspecified; R55 Syncope and collapse
CPT/HCPCS: 93306

== ENCOUNTER 2025-07-05 12:07 | Outpatient (OUT) | payer OTHER, SELFPAY ==
--- OUTSIDE RECORDS SUMMARY | 2025-07-05 12:13 | XMS_ITS | CCD ---
Author Organization [facility] Care Team Providers Care Store Facility Technician Name Role Phone PROVIDER, UNKNOWN Unavailable Unavailable [...] TOBAR Attending Unavailable MARILYN TOBAR Attending Unavailable KEITH TILLEY Attending Unavailable LISS LOPES Attending Unavailable Allergies Allergy Classification Reported Allergen(s) Allergy Type Date of Onset Reaction(s) Facility (2 sources) Penicillins; Translations: [PENICILLINS] Drug allergy (disorder) 09-28-18 93 [facility] Repository (8 sources) Penicillins Propensity to adverse reactions 08-27-20 Anaphylaxis, Hives, Shortness of breath, Wheezing [facility] Work Phone: (1 source) Sulfamethoxazole / Trimethoprim; Translations: [SULFAMETHOXAZOLE-T RIMETHOPRIM] Drug Allergy 06-20-20 [facility] Repository Medications Current Medications Medication Drug Class(es) Dates [...] Problem Classification Problem Date Documented Date Episodic/Chronic Attention-deficit, conduct, and disruptive behavior disorders (2 sources) Attention deficit hyperactivity disorder; Translations: [ADHD] Onset: 06-09-20 Chronic Cardiac dysrhythmias (2 sources) Supraventricular tachycardia Onset: 06-09-20 Chronic Deficiency and other anemia (1 source) Anemia, [...] COUGH, UNSPECIFIED; Translations: [COUGH, UNSPECIFIED] Onset: 10-03-19 Unclassified (1 source) Supraventricular tachycardia, unspecified; Translations: [Supraventricular tachycardia, unspecified] Onset: 06-11-20 Unclassified (2 sources) New Patient; Translations: [New Patient] Onset: 06-09-20 Past or Other Problems Problem Classification Problem Date Documented Date Episodic/Chronic Unclassified (1 source) CONTACT W/AND (SUSP) EXPOS COVID-19; Translations: [CONTACT W/AND (SUSP) EXPOS COVID-19] Onset: 09-30-2022 Unclassified (1 source) Supraventricular tachycardia, unspecified; Translations: [Supraventricular tachycardia, unspecified] Onset: 06-20-2025 Results Test Name Value Interpretation Reference Range Facility Orders Onlyon 07-03-2025 Orders Only [id number] Starla Matt 1990 Date Provider Department Center 07/03/2025 Kath-NATE JOHNSON [facility] V[facility] Family History Problem Relation Age of Onset Hypertension Mother Hypertension Father Family Status - Relation Status Age at Mother Alive Father Alive Normal [facility] Orders Onlyon 06-23-2025 Orders Only [id number] Starla Matt 1990 Date Provider Department Center 06/23/2025 [id number], HISTORICAL CARD [facility] Family History Problem Relation Age of Onset Hypertension Mother Hypertension Father Family Status - Relation Status Age at Mother Alive Father Alive Normal [facility] Office Visiton 06-20-2025 Follow-up visit [id number] Starla Matt 1990 Date Provider Department Center 06/20/2025 Renae-LISS LOPES CARD [facility] Family History Problem Relation Age of Onset Hypertension Mother Hypertension Father Family Status - Relation Status Age at Mother Alive Father Alive Level of Service:97636 [place] OFFICE/OUTPATIENT NEW HIGH MDM 60 MINUTES Normal [facility] Office Visiton 06-09-2025 Follow-up visit [id number] Starla Matt 1990 Date Provider Department Center 06/09/2025 [id number] TILLEY CARD [facility] Family History Problem Relation Age of Onset Hypertension Mother Hypertension Father Family Status - Relation Status Age at Mother Alive Father Alive Level of Service:88992 [place] OFFICE/OUTPATIENT NEW LOW MDM 30 MINUTES Reason for Visit and Comments: New Patient [632] - Patient is here as a new patient to establish care with cardiology SVT [Other] ADHD [13] Holter monitor 3 weeks ago [Other] Head pressure/pain [Other] Normal [facility] MLR HEMOGLOBIN A1Con 024 Glucose [Mass/Vol] 100 mg/dL [facility] HbA1c (Bld) [Mass fraction] 5.1 % 4.5 - 6.2 % [facility] Comment on above: ADA RECOMMENDED LIMI T 4.0 - 6.0 ADA THERAPEUTIC TARGET < 7.0 ACTION SUGGESTED > 7.0 [facility] H PYLORI ANTIBODY IGGon 11-26 H. PYLORI IGG ABS 0.34 Index Value Normal 0.00-0.79 [facility] Comment on above: Result Comment: Nega tive <0.80 Equivocal 0.80 - 0.89 Positive >0.89 Performed By: #### T 7, RANDAL, LIPA, CMP, LIPID, TSH #### [facility] [address] [place] [address] Dr. Lisa Chong INSULINon 12-10-2022 Insulin 15.6 uIU/mL Normal 2.6-24.9 [facility] Comment on above: Performed By: #### I NSULIN #### [facility] [address] [place] [address] Dr. Lisa Chong AMYLASEon 12-09-2022 Amylase [Catalytic activity/Vol] 59 U/L Normal 25-115 [facility] Comment on above: Performed By: #### T 7, RANDAL, LIPA, CMP, LIPID, TSH #### [facility] [address] [place] [address] Dr. Lisa Chong CBC AUTO DIFFon 12-09-2022 BASO # 0.0 103/ul Normal 0.0-0.1 [facility] Comment on above: Performed By: #### T 7, RANDAL, LIPA, CMP, LIPID, TSH #### [facility] [address] [place] [address] Dr. Lisa Chong Basophils/100 WBC (Bld) 0.5 % Normal 0.2-2.0 [facility] Comment on above: Performed By: #### T 7, RANDAL, LIPA, CMP, LIPID, TSH #### [facility] [address] [place] [address] Dr. Lisa Chong EO # 0.0 103/ul Normal 0.0-0.7 [facility] Comment on above: Performed By: #### T 7, RANDAL, LIPA, CMP, LIPID, TSH #### [facility] [address] [place] [address] Dr. Lisa Chong Eosinophils/100 WBC (Bld) 0.0 % Critically low 0.9-7.0 [facility] Comment on above: Performed By: #### T 7, RANDAL, LIPA, CMP, LIPID, TSH #### [facility] [address] [place] [address] Dr. Lisa Chong Erythrocyte distribution width (RBC) [Ratio] 12.9 % Normal 11.0-15.0 [facility] Comment on above: Performed By: #### T 7, RANDAL, LIPA, CMP, LIPID, TSH #### [facility] [address] [place] [address] Dr. Lisa Chong Hematocrit (Bld) [Volume fraction] 42.7 % Normal 36.0-48.0 [facility] Comment on above: Performed By: #### T 7, RANDAL, LIPA, CMP, LIPID, TSH #### [facility] [address] [place] [address] Dr. Lisa Chong Hemoglobin (Bld) [Mass/Vol] 14.4 g/dL Normal 12.0-16.0 [facility] Comment on above: Performed By: #### T 7, RANDAL, LIPA, CMP, LIPID, TSH #### [facility] [address] [place] [address] Dr. Lisa Chong IG # 0.02 10e3/ul Normal 0.00-0.03 [facility] Comment on above: Performed By: #### T 7, RANDAL, LIPA, CMP, LIPID, TSH #### [facility] [address] [place] [address] Dr. Lisa Chong IG % 0.4 % Normal 0.0-0.5 [facility] Comment on above: Performed By: #### T 7, RANDAL, LIPA, CMP, LIPID, TSH #### [facility] [address] [place] [address] Dr. Lisa Chong LYMPH # 1.6 103/ul Normal 1.2-3.8 [facility] Comment on above: Performed By: #### T 7, RANDAL, LIPA, CMP, LIPID, TSH #### [facility] [address] [place] [address] Dr. Lisa Chong Lymphocytes/100 WBC (Bld) 28.0 % Normal 20.5-60.0 [facility] Comment on above: Performed By: #### T 7, RANDAL, LIPA, CMP, LIPID, TSH #### [facility] [address] [address] [address] Lisa Chong MANUAL DIFF REQ NO Normal [facility] Comment on above: Performed By: #### T 7, RANDAL, LIPA, CMP, LIPID, TSH #### [facility] [address] [place] [address] Dr. Lisa Chong MCH (RBC) [Entitic mass] 28.3 pg Normal 26.7-34.0 [facility] Comment on above: Performed By: #### T 7, RANDAL, LIPA, CMP, LIPID, TSH #### [facility] [address] [place] [address] Dr. Lisa Chong MCHC (RBC) [Mass/Vol] 33.7 g/dL Normal 29.9-35.2 [facility] Comment on above: Performed By: #### T 7, RANDAL, LIPA, CMP, LIPID, TSH #### [facility] [address] [place] [address] Dr. Lisa Chong MCV (RBC) [Entitic vol] 83.9 fL Normal 81.0-99.0 [facility] Comment on above: Performed By: #### T 7, RANDAL, LIPA, CMP, LIPID, TSH #### [facility] [address] [place] [address] Dr. Lisa Chong MONO # 0.3 103/ul Normal 0.3-0.8 [facility] Comment on above: Performed By: #### T 7, RANDAL, LIPA, CMP, LIPID, TSH #### [facility] [address] [place] [address] Dr. Lisa Chong Monocytes/100 WBC (Bld) 5.2 % Normal 1.7-12.0 [facility] Comment on above: Performed By: #### T 7, RANDAL, LIPA, CMP, LIPID, TSH #### [facility] [address] [place] [address] Dr. Lisa Chong NEUT # 3.7 103/ul Normal 1.4-6.5 [facility] Comment on above: Performed By: #### T 7, RANDAL, LIPA, CMP, LIPID, TSH #### [facility] [address] [place] [address] Dr. Lisa Chong Neutrophils/100 WBC (Bld) 65.9 % Normal 43.0-75.0 [facility] Comment on above: Performed By: #### T 7, RANDAL, LIPA, CMP, LIPID, TSH #### [facility] [address] [place] [address] Dr. Lisa Chong Platelet mean volume (Bld) [Entitic vol] 10.1 fL Normal 9.5-13.5 [facility] Comment on above: Performed By: #### T 7, RANDAL, LIPA, CMP, LIPID, TSH #### [facility] [address] [place] [address] Dr. Lisa Chong PLT 292 103/ul Normal 150-450 [facility] Comment on above: Performed By: #### T 7, RANDAL, LIPA, CMP, LIPID, TSH #### [facility] [address] [place] [address] Dr. Lisa Chong RBC 5.09 106/ul Normal 4.20-5.40 [facility] Comment on above: Performed By: #### T 7, RANDAL, LIPA, CMP, LIPID, TSH #### [facility] [address] [place] [address] Dr. Lisa Chong WBC 5.6 103/ul Normal 4.0-11.0 [facility] Comment on above: Performed By: #### T 7, RANDAL, LIPA, CMP, LIPID, TSH #### [facility] [address] [place] [address] Dr. Lisa Chong FREE THYROXINE INDEX T7on FTI 3.42 Normal 1.30-4.50 [facility] Comment on above: Performed By: #### T 7, RANDAL, LIPA, CMP, LIPID, TSH #### [facility] [address] [place] [address] Dr. Lisa Chong T3U 36.0 % Normal 30.0-39.0 [facility] Comment on above: Performed By: #### T 7, RANDAL, LIPA, CMP, LIPID, TSH #### [facility] [address] [address] [address] Lisa Chong T4 [Mass/Vol] 9.50 ug/dL Normal 4.80-13.90 [facility] Comment on above: Performed By: #### T 7, RANDAL, LIPA, CMP, LIPID, TSH #### [facility] [address] [place] [address] Dr. Lisa Chong GLYCOHEMOGLOBIN A1Con 2022 ADA RECOMMENDATION SEE BELOW Normal [facility] Comment on above: Result Comment: ADA RECOMMENDED LIMIT 4.0 - 6.0 ADA THERAPEUTIC TARGET < 7.0 ACTION SUGGESTED > 7.0 Performed By: #### A 1C #### [facility] [address] [place] [address] Dr. Lisa Chong Glucose [Mass/Vol] 103 mg/dL Normal [facility] Comment on above: Performed By: #### A 1C #### [facility] [address] [place] [address] Dr. Lisa Chong HbA1c (Bld) [Mass fraction] 5.2 % Normal 4.5-6.2 [facility] Comment on above: Performed By: #### A 1C #### [facility] [address] [place] [address] Dr. Lisa Chong IRONon 12-09-2022 Iron [Mass/Vol] 157.0 ug/dL Normal 50.0-170.0 [facility] Comment on above: Performed By: #### T 7, RANDAL, LIPA, CMP, LIPID, TSH #### [facility] [address] [place] [address] Dr. Lisa Chong LIPASEon 12-09-2022 Lipase [Catalytic activity/Vol] 125.0 U/L Normal 73.0-393.0 [facility] Comment on above: Performed By: #### T 7, RANDAL, LIPA, CMP, LIPID, TSH #### [facility] [address] [place] [address] Dr. Lisa Chong LIPID PROFILEon 12-09-2022 CHOL-HDL RATIO NORM SEE BELOW Normal [facility] Comment on above: Result Comment: 3.3 - 4.4 LOW RISK 4.4 - 7.1 AVERAGE RISK 7.1 - 11.0 MODERATE RISK >11.0 HIGH RISK Performed By: #### T 7, RANDAL, LIPA, CMP, LIPID, TSH #### [facility] [address] [place] [address] Dr. Lisa Chong Cholesterol [Mass/Vol] 198 mg/dL Normal <=200 [facility] Comment on above: Performed By: #### T 7, RANDAL, LIPA, CMP, LIPID, TSH #### [facility] [address] [address] [address] Lisa Chong Cholesterol in HDL [Mass/Vol] 56 mg/dL Normal 40-60 [facility] Comment on above: Performed By: #### T 7, RANDAL, LIPA, CMP, LIPID, TSH #### [facility] [address] [place] [address] Dr. Lisa Chong Cholesterol in LDL [Mass/Vol] 123.4 mg/dL Normal [facility] Comment on above: Performed By: #### T 7, RANDAL, LIPA, CMP, LIPID, TSH #### [facility] [address] [place] [address] Dr. Lisa Chong Cholesterol.total/Cho lesterol in HDL [Mass ratio] 3.5 {ratio} Normal [facility] Comment on above: Performed By: #### T 7, RANDAL, LIPA, CMP, LIPID, TSH #### [facility] [address] [place] [address] Dr. Lisa Chong HDL NORMAL > or = 60 mg/dl - LOW CARDIOVASCULAR RISK <40 mg/dl - HIGH CARDIOVASCULAR RISK Normal [facility] Comment on above: Performed By: #### T 7, RANDAL, LIPA, CMP, LIPID, TSH #### [facility] [address] [place] [address] Dr. Lisa Chong LDL CALC NORMAL SEE BELOW Normal [facility] Comment on above: Result Comment: <100 mg/dl OPTIMAL 100 - 129 mg/dl NEAR OR ABOVE OPTIMAL 130 - 159 mg/dl BORDERLINE HIGH 160 - 189 mg/dl HIGH >190 mg/dl VERY HIGH Performed By: #### T 7, RANDAL, LIPA, CMP, LIPID, TSH #### [facility] [address] [address] [address] Lisa Chong Triglyceride [Mass/Vol] 93 mg/dL Normal <=150 [facility] Comment on above: Performed By: #### T 7, RANDAL, LIPA, CMP, LIPID, TSH #### [facility] [address] [address] [address] Lisa Chong VLDL CALC 18.6 mg/dL Normal [facility] Comment on above: Performed By: #### T 7, RANDAL, LIPA, CMP, LIPID, TSH #### [facility] [address] [place] [address] Dr. Lisa Chong PROF 14(COMP METB)on 023 Albumin [Mass/Vol] 4.6 g/dL Normal 3.4-5.0 [facility] Comment on above: Performed By: #### T 7, RANDAL, LIPA, CMP, LIPID, TSH #### [facility] [address] [place] [address] Dr. Lisa Chong Albumin/Globulin [Mass ratio] 1.3 {ratio} Normal [facility] Comment on above: Performed By: #### T 7, RANDAL, LIPA, CMP, LIPID, TSH #### [facility] [address] [place] [address] Dr. Lisa Chong ALP [Catalytic activity/Vol] 63 U/L Normal 46-116 [facility] Comment on above: Performed By: #### T 7, RANDAL, LIPA, CMP, LIPID, TSH #### [facility] [address] [place] [address] Dr. Lisa Chong ALT [Catalytic activity/Vol] 18 U/L Normal 14-59 [facility] Comment on above: Performed By: #### T 7, RANDAL, LIPA, CMP, LIPID, TSH #### [facility] [address] [address] [address] Lisa Chong Anion gap [Moles/Vol] 10.3 mmol/L Normal [facility] Comment on above: Performed By: #### T 7, RANDAL, LIPA, CMP, LIPID, TSH #### [facility] [address] [address] [address] Lisa Chong AST [Catalytic activity/Vol] 13 U/L Critically low 15-37 [facility] Comment on above: Performed By: #### T 7, RANDAL, LIPA, CMP, LIPID, TSH #### [facility] [address] [address] [address] Lisa Chong Bilirubin [Mass/Vol] 0.6 mg/dL Normal 0.2-1.0 [facility] Comment on above: Performed By: #### T 7, RANDAL, LIPA, CMP, LIPID, TSH #### [facility] [address] [place] [address] Dr. Lisa Chong Calcium [Mass/Vol] 9.6 mg/dL Normal 8.5-10.1 [facility] Comment on above: Performed By: #### T 7, RANDAL, LIPA, CMP, LIPID, TSH #### [facility] [address] [address] [address] Lisa Chong Chloride [Moles/Vol] 102 mmol/L Normal 98-107 [facility] Comment on above: Performed By: #### T 7, RANDAL, LIPA, CMP, LIPID, TSH #### [facility] [address] [place] [address] Dr. Lisa Chong CO2 [Moles/Vol] 28.7 mmol/L Normal 21.0-32.0 [facility] Comment on above: Performed By: #### T 7, RANDAL, LIPA, CMP, LIPID, TSH #### [facility] [address] [address] [address] Lisa Chong Creatinine [Mass/Vol] 0.59 mg/dL Normal 0.55-1.02 [facility] Comment on above: Performed By: #### T 7, RANDAL, LIPA, CMP, LIPID, TSH #### [facility] [address] [place] [address] Dr. Lisa Chong EGFR-AF [place] ISLANDER >60 Normal >=60 [facility] Comment on above: Performed By: #### T 7, RANDAL, LIPA, CMP, LIPID, TSH #### [facility] [address] [address] [address] Lisa Chong EGFR-NON AF [place]ER >60 Normal >=60 [facility] Comment on above: Performed By: #### T 7, RANDAL, LIPA, CMP, LIPID, TSH #### [facility] [address] [address] [address] Lisa Chong Globulin (S) [Mass/Vol] 3.5 g/dL Normal [facility] Comment on above: Performed By: #### T 7, RANDAL, LIPA, CMP, LIPID, TSH #### [facility] [address] [address] [address] Lisa Chong Glucose [Mass/Vol] 96 mg/dL Normal 74-106 [facility] Comment on above: Performed By: #### T 7, RANDAL, LIPA, CMP, LIPID, TSH #### [facility] [address] [place] [address] Dr. Lisa Chong Potassium [Moles/Vol] 4.0 mmol/L Normal 3.5-5.1 [facility] Comment on above: Performed By: #### T 7, RANDAL, LIPA, CMP, LIPID, TSH #### [facility] [address] [address] [address] Lisa Chong Protein [Mass/Vol] 8.1 g/dL Normal 6.4-8.2 [facility] Comment on above: Performed By: #### T 7, RANDAL, LIPA, CMP, LIPID, TSH #### [facility] [address] [address] [address] Lisa Chong Sodium [Moles/Vol] 137 mmol/L Normal 136-145 [facility] Comment on above: Performed By: #### T 7, RANDAL, LIPA, CMP, LIPID, TSH #### [facility] [address] [address] [address] Lisa Chong Urea nitrogen [Mass/Vol] 14.0 mg/dL Normal 7.0-18.0 [facility] Comment on above: Performed By: #### T 7, RANDAL, LIPA, CMP, LIPID, TSH #### [facility] [address] [address] [address] Lisa Chong Urea nitrogen/Creatinine [Mass ratio] 23.7 mg/mg Normal [facility] Comment on above: Performed By: #### T 7, RANDAL, LIPA, CMP, LIPID, TSH #### [facility] [address] [address] [address] Lisa Chong TSHon 12-09-2022 TSH 0.713 uIU/mL Normal 0.358-3.740 [facility] Comment on above: Performed By: #### T 7, RANDAL, LIPA, CMP, LIPID, TSH #### [facility] [address] [address] [address] Lisa Chong Cov[facility]-19 [facility]on SARS-CoV-2 (COVID-19) RNA DAVIS+probe Ql (Unsp spec) Not detected Normal NOT DETECTED [facility] Comment on above: [...] for this test is supported by the [employer] of Health and Human Service's declaration that [...] used). Performed By: #### C VDTBH #### [facility] [address] [address] [address] Lisa Chong INFLUENZA A AND B AGon 09-30 INFLUANEGH SEE BELOW Normal [facility] Comment on above: Result Comment: Nega tive for Flu A protein angiten. Infection due to Flu A cannot be ruled out. Flu A angiten in the sample may be below the detection limit of the test. Performed By: #### I NFLUAB #### [facility] [address] [place] [address] Dr. Lisa [facility] Normal [facility] Comment on above: Result Comment: Nega tive for Flu B protein antigen. Infection due to Flu B cannot be ruled out. Flu B antigen in the sample may be below the detection limit of the test. Performed By: #### I NFLUAB #### [facility] [address] [place] [address] Dr. Lisa Chong INFLUENZA A AG Negative Normal NEGATIVE SEE COMMENT [facility] Comment on above: Performed By: #### I NFLUAB #### [facility] [address] [place] [address] Dr. Lisa Chong INFLUENZA B AG Negative Normal NEGATIVE SEE COMMENT [facility] Comment on above: Performed By: #### I NFLUAB #### [facility] [address] [place] [address] Dr. Lisa Chong Operative Reporton 0 Operative Report [id number] #1.00CD:127 Normal [facility] Lab Reportson 06-13-2020 Lab Reports [id number] #1.00CD:127 Normal [facility] Formson 05-22-2020 Forms [id number] #1.00CD:127 Normal [facility] Forms [id number]# 1.00CD:127 [facility] Physician Referralon 020 Physician Referral [id number]# 1.00CD:127 Normal [facility] Ambulatory Clinical Summaryo n 05-21-2020 Ambulatory Clinical Summary {[id number]}CD:[id number] Normal [facility] Ambulatory Clinical Summary {[id number]}CD:[id number] Normal [facility] Ambulatory Clinical Summary {[id number]}CD:[id number] Normal [facility] Patient Educationon 05-21-20 Patient Education Family Medicine Urinary Frequency The [...] Document Reviewed: 07/11/2010 ExitCare? Patient Information ?2013 [employer]. [facility] Urology Office/Clinic Noteon 05-21-2020 Urology Office/Clinic Note [...] Illness Reviewed UA. Reviewed renal u/s and CAR USHER paper work. There have been no associated [...] for Macrobid 100mg qd #60 sent to [facility] in [place]. Discussed the medication side effects, and the [...] When Contact Information PREETI ZHOU, Jimbo Linda [address] [place] [address] [place] [address]- [phone] Additional Instructions: Patient Education Urinary Frequency I, [...] Protein Urine Dipstick: Negative (05/21/20 12:34:00) Specific [place] Urine Dipstick: 1.015 (05/21/20 12:34:00) Urine Appearance Urine Dipstick: Clear (05/21/20 12:34:00) Urine Color Urine Dipstick: Yellow (05/21/20 12:34:00) Urobilinogen Urine Dipstick: Normal 0.2-1 EU/dl (05/21/20 12:34:00) pH Urine Dipstick: 6.5 (05/21/20 12:34:00) Normal [facility] Comment on above: Result Comment: Elec tronically Signed By: PREETI ZHOU, Jimbo Linda\.br\Date and Time Signed: 05/21/20 13:42 EDT\.br\Electronically Co-Signed By: Paula Guerra MA\.br\Date and Time Co-Signed: 05/21/20 13:37 EDT Vital Signs Date Time Vital Sign Value Performing Clinician Freddie rocha 11-29-2024 14:59-0500 Body weight 62.05 kg Marilyn Amadou DO Work Phone: [facility] 11-29-2024 14:59-0500 Diastolic blood pressure 60 mm[Hg] Marilyn Amadou DO Work Phone: [facility] 11-29-2024 14:59-0500 Systolic blood pressure 100 mm[Hg] Marilyn Amadou DO Work Phone: [facility] 10-06-2024 11:10-0500 Body weight 63.56 kg Marilyn Amadou DO Work Phone: [facility] 10-06-2024 11:10-0500 Diastolic blood pressure 62 mm[Hg] Marilyn Amadou DO Work Phone: [facility] 10-06-2024 11:10-0500 Systolic blood pressure 120 mm[Hg] Marilyn Amadou DO Work Phone: [facility] 08-30-2024 13:30-0500 Body weight 62.96 kg Marilyn Amadou DO Work Phone: [facility] 08-30-2024 13:30-0500 Diastolic blood pressure 74 mm[Hg] Marilyn Amadou DO Work Phone: [facility] 08-30-2024 13:30-0500 Systolic blood pressure 112 mm[Hg] Marilyn Amadou DO Work Phone: [facility] Encounters Encounter Date Encounter Type Care Provider Facility Start: 06-20-2025 End: 06-20-2025 ambulatory [facility] Start: 06-09-2025 End: 06-09-2025 ambulatory [facility] Start: 11-29-2024 End: 11-29-2024 Patient encounter procedure Marilyn Amadou DO Work Phone: [facility] Work Phone: Start: 11-29-2024 End: 11-29-2024 Periodic preventive med est patient 18-39 yrs Marilyn Amadou DO Work Phone: [facility] Comment on above: Well woman exam with routine gynecological exam Start: 11-29-2024 End: 11-29-2024 ambulatory MARILYN AMADOU Not Available Start: 11-29-2024 End: 11-29-2024 Bamboo flowsheet Marilyn Amadou DO Work Phone: [facility] Start: 11-29-2024 End: 11-29-2024 Bamboo flowsheet Marilyn Amadou DO Work Phone: [facility] Start: 10-06-2024 End: 10-06-2024 Bamboo flowsheet Marilyn Amadou DO Work Phone: [facility] Start: 10-06-2024 End: 10-06-2024 Bamboo flowsheet Marilyn Amadou DO Work Phone: [facility] Start: 10-06-2024 End: 10-06-2024 Office outpatient visit 15 minutes Marilyn Amadou DO Work Phone: [facility] Comment on above: Hormone imbalance; Mood changes; Memory loss Start: 10-06-2024 End: 10-06-2024 ambulatory MARILYN AMADOU Not Available Start: 09-01-2024 End: 09-01-2024 Clinisync Result Encounter Marilyn Amadou DO Work Phone: [facility] External Department Unsolicited Start: 09-01-2024 End: 09-01-2024 Clinisync Result Encounter Marilyn Amadou DO Work Phone: [facility] External Department Unsolicited Start: 08-30-2024 End: 08-30-2024 Bamboo flowsheet Marilyn Amadou DO Work Phone: [facility] Start: 08-30-2024 End: 08-30-2024 Bamboo flowsheet Marilyn Amadou DO Work Phone: [facility] Start: 08-30-2024 End: 08-30-2024 Office outpatient visit 15 minutes Marilyn Amadou DO Work Phone: [facility] Comment on above: Hormone imbalance; Memory loss; Hormone disorder; H/O herpes genitalis Start: 08-30-2024 End: 08-30-2024 ambulatory MARILYN AMADOU Not Available Start: 12-09-2022 End: 12-10-[address] MISHA YAO . Facility: Start: 09-30-2022 End: 09-30-[address] MISHA YAO . Facility: Start: 06-10-2018 End: 06-10-2018 Emergency department patient visit UNKNOWN PROVIDER Facility:[facility] Procedures Date Procedure Procedure Detail Performing Clinician Start: 09-01-2024 MLR HEMOGLOBIN A1C Core y Amadou DO Work Phone: Start: 06-10-2018 DISCHARGE PATIENT UNKNO WN PROVIDER Plan of Treatment Date Care Activity Detail Author Start: 12-06-2025 End: 12-06-2025 Patient encounter procedure 12/06/2025 2:00 PM EDT Office Visit [facility] [address] [phone] Marilyn Tobar, DO [address] [place] [address] [facility] Start: 11-29-2024 End: 11-29-2024 Patient encounter procedure 11/29/2024 2:30 PM EST Office Visit [facility] [address] [id number] Marilyn Tobar, DO [address] [place] [address] Arrived [facility] Comment on above: Arrived Start: 11-23-2024 End: 11-23-2024 Patient encounter procedure 11/23/2024 3:00 PM EST Office Visit [facility] [address] [phone] Marilyn Tobar, DO [address] [place] [address] [facility] Start: 10-06-2024 End: 10-06-2024 Patient encounter procedure [facility] Comment on above: Arrived Start: 08-30-2024 End: 08-30-2025 C-peptide C-peptide Lab Routine Hormone disorder Expected: 08/30/2024 (Approximate), Expires: 08/30/2025 [facility] Comment on above: Expected: 08/30/2024 [...] 08-30-2025 Thyrotropin [Units/volume] in Serum or Plasma [facility] Comment on above: Ordered: 08/30/2024 Expected: 08/30/2024 (Approximate), Expires: 08/30/2025 Start: 08-30-2024 End: 08-30-2024 Patient encounter procedure 08/30/2024 1:10 PM EST Office Visit [facility] [address] [place] [id number] Marilyn Tobar, [address] [place] [address] Arrived [facility] Comment on above: Arrived Cytology Cervical or vaginal smear or scraping study Pap Smear Pathology and Cytology Routine Well woman exam with routine gynecological exam Ordered: 11/29/2024 [facility] Work Phone: Comment on above: Ordered: 11/29/2024 DHEA-sulfate DHEA-sulfate Lab Routine Hormone disorder Ordered: 08/30/2024 [facility] Comment on above: Ordered: 08/30/2024 Estradiol Estradiol Lab Ro utine Hormone disorder Ordered: 08/30/2024 [facility] Work Phone: Comment on above: Ordered: 08/30/2024 Estrone Estrone Lab Rout ine Hormone disorder Ordered: 08/30/2024 [facility] Comment on above: Ordered: 08/30/2024 Ferritin [Mass/volum e] in Serum or Plasma Ferritin Lab Routine Hormone disorder Ordered: 08/30/2024 [facility] Comment on above: Ordered: 08/30/2024 Hemoglobin A1c/Hemoglobin.total in Blood Hemoglobin A1c Lab Routine Hormone disorder Ordered: 08/30/2024 [facility] Comment on above: Ordered: 08/30/2024 Human papilloma viru s DNA [Presence] in Unspecified specimen by Probe with amplification HPV DNA probe, amplified Microbiology Routine Well woman exam with routine gynecological exam Ordered: 11/29/2024 [facility] Comment on above: Ordered: 11/29/2024 Progesterone Progesterone Lab Routine Hormone disorder Ordered: 08/30/2024 [facility] Comment on above: Ordered: 08/30/2024 Sex hormone binding globulin Sex hormone binding globulin Lab Routine Hormone disorder Ordered: 08/30/2024 [facility] Comment on above: Ordered: 08/30/2024 T3, reverse T3, reverse Lab Routine Hormone disorder Ordered: 08/30/2024 [facility] Comment on above: Ordered: 08/30/2024 TESTOSTERONE, FREE TESTOSTERONE, FREE Lab Routine Hormone disorder Ordered: 08/30/2024 [facility] Comment on above: Ordered: 08/30/2024 Testosterone, free, total Testos terone, free, total Lab Routine Hormone disorder Ordered: 08/30/2024 [facility] Comment on above: Ordered: 08/30/2024 Thyroid peroxidase antibody Thyroid peroxidase antibody Lab Routine Hormone disorder Ordered: 08/30/2024 [facility] Comment on above: Ordered: 08/30/2024 Thyroxine (T4) free [Mass/volume] in Serum or Plasma T4, free Lab Routine Hormone disorder Ordered: 08/30/2024 [facility] Comment on above: Ordered: 08/30/2024 Triiodothyronine (T3 ) Free [Mass/volume] in Serum or Plasma T3, free Lab Routine Hormone disorder Ordered: 08/30/2024 [facility] Comment on above: Ordered: 08/30/2024 Vitamin D 1,25 dihydroxy Vitamin D 1,25 dihydroxy Lab Routine Hormone disorder Ordered: 08/30/2024 [facility] Comment on above: Ordered: 08/30/2024 Payers Date Payer Category Payer Medicaid (Managed Care) [employer] [id number] 2018 Unknown [id number] 1991 Unknown [id number] 1991 Unknown [id number] 1991 Unknown [id number] 1991 Unknown [id number] 1991 Unknown [id number] 1959 Unknown [id number] Social History Date Type Detail Facility Tobacco smoking stat [facility] Tobacco smoking consumption unknown [facility] Start: 1990 [facility] at Female [facility] Start: 08-05-2024 Gender identity Identifies as female gender (finding) [facility] Start: 08-05-2024 Sexual orientation Heterosexual (fin ding) [facility] Progress note 06-20-2025 Note Date & Type Note Facility 06-20-2025 Note [facility] Consult Note [facility] Reason for visit: SVT HPI: Starla Matt is a 34 y.o. year old with past medical history of ADHD who recently presented to [facility] on 05/19/2025 with chest pain and was noted to be in SVT. She was given adenosine 6 mg that terminated to sinus rhythm. She states that she has experienced these about a month and a half ago and the first episode occurred while she was sleeping and woke her up from sleep this is apparently happened on few occasions some lasting anywhere from few minutes to half an hour. She was discharged from the ED on Toprol-XL and then subsequently was seen by Dr. Keith Tilley. Patient is here today per Dr. Tilley for SVT. Patient states she had a couple little situation, patient states she felt like her heart was fluttering at work and became sweaty patient states she cough several times and the symptoms resolved. Through out that day she felt flutters off and on. Patient complains of being dizzy and lightheaded. Brain scan not done per patient due to not feeling well yesterday. Review of Systems Cardiovascular: Positive for irregular heartbeat and palpitations. Neurological: Positive for dizziness and light-headedness. PMH: Medical History[1] PSH: Surgical History[2] SH: Social Drivers of Health Tobacco Use: High Risk (06/20/2025) Patient History Smoking Tobacco Use: Every Day Smokeless Tobacco Use: Current Passive Exposure: Not on file Alcohol Use: Not on file Financial Resource Strain: Not on file Food Insecurity: Not on file Transportation Needs: Not on file Physical Activity: Not on file Stress: Not on file Social Connections: Not on file Intimate Partner Violence: Not on file Depression: Not on file Housing Stability: Not on file Utilities: Not on file Health Literacy: Not on file Allergies: Allergies[3] Weight: 55.3kg Visit Vitals BP 117/80 (BP Location: Right arm, Patient Position: Sitting) Pulse 88 Ht 1.626 m (5' 4 ) Wt 55.3 kg (122 lb) SpO2 99% BMI 20.94 kg/m??? Smoking Status Every Day BSA 1.58 m??? Meds: Medications Ordered Prior to Encounter[4] Physical Exam: Constitutional General Appearance: well-nourished, well-developed, appears stated age Level of Distress: comfortable Eyes CAMILO Neck Neck: supple, trachea midline Carotid Arteries: bilateral normal upstroke, no bruits Jugular Veins: normal jugular venous pressure Thyroid: not enlarged Lungs Respiratory Effort: unlabored Chest Exam: normal curvature, no thoracic deformity Auscultation: clear, no wheezing, no rales, no rhonchi Cardiovascular Chest wall: Rate And Rhythm: regular Heart Sounds: normal S1, normal s2, no gallop Systolic Murmur: not heard Diastolic Murmur: not heard Extremities: no cyanosis, no edema, no peripheral signs of emboli Peripheral Pulses Radial Pulse: normal Abdomen Inspection and Palpation: soft, non distended, no bruit, non tender Neurologic Gait: normal gait Labs: @LABRESULTS@ No results found for: CHOLESTEROL TOTAL , HDL , LDL CALC , LDL DIRECT , TRIGLYCERIDES , TSH , T3 TOTAL , T4 TOTAL , THYROID PEROXIDASE AB , BNP Labs: 05/22/2025 Sodium 142, potassium 4.3, BUN 11, creatinine 0.65, GFR above 60, glucose 90, calcium 8.6, TSH 1.285, free T46.7, free T32.45 05/19/2025 White blood count 6, hemoglobin 14.5, hematocrit 42, platelets 329 next line sodium 140, potassium 3.3, BUN 8, creatinine 0.88, GFR above 60, glucose 180, calcium 9.6, magnesium 1.8 TSH 2.215 Serum hCG negative Last Images: EKG 05/19/2025 at 825 showed supraventricular tachycardia, heart rate 258 bpm, incomplete right bundle branch block, upsloping ST depression diffusely EKG 05/19/2025 at 833 showed sinus tachycardia, heart rate 112 bpm, incomplete right bundle branch block, otherwise normal EKG EKG 05/19/2025 at 902 showed sinus rhythm, heart rate 82 bpm, normal EKG Assessment and Plan: - SVT that responded to adenosine. Given the frequent episodes of SVT and symptoms associated with it I would recommend that the patient undergo an EP study and ablation based on the tachycardia that can be elicited. After discussion she has agreed to follow through with this. I discussed the procedure in length with figures to the patient and went over the risks, benefits and alternatives of the EP study and ablation. I stated that the risk can be classified as major and minor complications. The minor include discomfort over the incision site, erythema. The major complications include vessel injury consisting of AV fistula, pseudoaneurysm, thromboembolism including DVT stroke systemic emboli endorgan damage and even . We also discussed the possibility of catheter induced perforation leading to pericardial effusion or tamponade which may or may not require surgical intervention as well as the possibility of valve damage from entrapmen (more content not included)... [facility] Progress note 06-09-2025 Note Date & Type Note Facility 06-09-2025 Note [facility] Note Reason for cardiology consult: SVT Chief Complaint: Palpitations HPI: Starla Matt is a 34 y.o. female without prior cardiac history. She has a history of ADHD and she has been on the same medications for a long time Patient was recently on 05/19/2025 in the emergency room because of chest pain radiating to her neck associated with heart racing and tingling in her bilateral upper extremities had been going on for 45-minute. Initial heart rate was 233 bpm and blood pressure 110/60. Monitor showed SVT with heart rate 258 bpm, she was given adenosine 6 mg IV and she was converted to normal sinus rhythm She reports those episodes started about 1-1/2 months ago, first episode she was napping and she woke up sweaty, tried to stand up but she could not because she was extremely weak and she felt that her heart was racing and fluttering then it stopped and she felt better. She felt that she was dehydrated and she drank Gatorade and she ate but she continued to be aching all over for about 3 to 4 days. Since then she has been having intermittent similar episodes all summer long each 1 lasting 20 to 30 minutes however the episode on 05/19/2025 was worse than usual, she was at work and she felt like that her heart was fluttering with increased heart rate and she had a pending doom feeling according to her report, she did not feel safe to drive herself to the emergency room therefore she called her sister and as mentioned above she was found to have SVT with very fast heart rate converted to sinus rhythm with adenosine but since then she has been having head pressure on the top of her head and inside her eyes but her blood pressure has been good. She reports that she used to drink up to 2 cups of coffee a day however she stopped that. She never used energy drinks. She might drink pop 1 to twice a week. She denies any alcohol or marijuana or any other illicit drugs. Patient recalls that probably she had those episodes all her life however they were shorter and less frequent. She was close to have syncope with them in the past. Patient also reports that since last episode she feels that she has been doing a lot of mistakes at work and that she has been having memory issues. She saw her PCP and they ordered head CT scan She was discharged home on Toprol-XL 50 mg daily and no recurrence of episodes since Other than the above she denies chest pain or shortness of breath at rest or with exertion. Denies orthopnea or paroxysmal nocturnal dyspnea or legs edema or leg discomfort on exertion Cardiology ROS: GENERAL: Denies fever, chills, night sweats, weight loss. HEENT: Denies changes in vision, photophobia, changes in hearing, epistaxis, oral bleeding. CARDIOVASCULAR: As described above in the history RESPIRATORY: Denies SOB, coughing, wheezing GI: Denies abdominal pain, nausea/vomiting, heartburn, melena/hematochezia. RENAL: Denies dysuria, hematuria, flank pain. MSK: Denies muscle weakness/pain, arthralgias/joint pain. NEUROLOGIC: Denies LOC, weakness, numbness, headaches. SKIN: Denies abnormal rashes or bleeding. PSYCH: Denies significant anxiety, depression, sleep disturbances. Past Medical History She has a past medical history of ADHD and SVT (supraventricular tachycardia). Surgical History She has a past surgical history that includes Tubal ligation. Social History She reports that she has been smoking cigarettes. She uses smokeless tobacco. She reports current alcohol use. Drug use questions deferred to the physician. Family History Family History[1] Allergies Penicillins Medications Current Medications[2] Last Recorded Vitals Visit Vitals BP 109/75 (BP Location: Right arm, Patient Position: Sitting) Pulse 88 Wt 56.2 kg (124 lb) SpO2 97% Smoking Status Every Day Physical Examination: GENERAL: alert and oriented x3, well developed, in no acute distress. HEAD: atraumatic, normocephalic. EYES: ASHLEY, EOMI. NECK: trachea midline, no JVD present, no carotid bruits present. CARDIAC: S1, S2 present. RRR. No murmur, rubs, or gallops. RESPIRATORY: CTAB, no increased effort of breathing, no rales, rhonchi, or wheezing. ABDOMEN: soft, nontender, nondistended. EXTREMITIES: no lower extremity edema, peripheral pulses are 2+ bilaterally. No rash/skin discoloration present. NEURO: strength/sensation equal and symmetric in bilateral upper and lower extremities. PSYCH: appropriate mood, affect, and judgement. Labs: 05/22/2025 Sodium 142, potassium 4.3, BUN 11, creatinine 0.65, GFR above 60, glucose 90, calcium 8.6, TSH 1.285, free T46.7, free T32.45 05/19/2025 White blood count 6, hemoglobin 14.5, hematocrit 42, platelets 329 next line sodium 140, potassium 3.3, BUN 8, creatinine 0.88, GFR above 60, glucose 180, calcium 9.6, magnesium 1.8 TSH 2.215 Serum hCG negative Last Images: EKG 05/19/2025 at 825 keiko (more content not included)... [facility] History of Present illness Narrative 11-29-2024 Magnolia Calvo LPN - 11/29/2024 2:30 PM EST Note Date & Type Note Facility 11-29-2024 History of Presen t illness Narrative Reason for Appointment: Patient ID: Starla Matt is a 34 y.o. female who presents [...] Narrative Reason for Appointment: Patient ID: Starla Matt is a 33 y.o. female who presents [...] nursing note reviewed. 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 Vitals: There is no height or [...] approaches as well. Patient given website for [employer] in [place]. Patient to schedule annual appointment on her way out of office. Documented by Magnolia Calvo LPN on behalf of: Marilyn Tobar DO documented in this encounter [facility] History of Present illness Narrative 08-30-2024 Shelly Rodriguez LPN - 08/30/2024 1:10 PM EST Note Date & Type Note Facility 08-30-2024 History of Presen t illness Narrative Reason for Appointment: Patient ID: Starla Matt is a 33 y.o. female who presents [...] nursing note reviewed. 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 Vitals: There is no height or [...] and content) DATE CREATED AUTHOR 07/12/2018 [employer] DATE CREATED AUTHOR AUTHOR'S ORGANIZ ATION 06/18/2020 [facility] DATE CREATED AUTHOR AUTHOR'S ORGANIZ ATION 12/16/2022 [facility] DATE CREATED AUTHOR AUTHOR'S ORGANIZ ATION 12/01/2024 [facility] EPIC DATE CREATED AUTHOR AUTHOR'S ORGANIZ ATION 07/05/2025 [facility] Reason for Visit (unrecogniz ed section and [...] BE BASED ON THE PRIMARY CLINICAL RECORDS. [facility] provides no warranty or guarantee of the accuracy or completeness of information in this document.
[2025-07-05 13:05] LABS: Anion Gap 11.7; Blood Urea Nitrogen 9.0 mg/dL (7.0-18.0); Calcium 9.0 mg/dL (8.5-10.1); Carbon Dioxide 28.3 mmol/L (21.0-32.0); Chloride 104 mmol/L (98-107); Estimated GFR (African America >60 (>=60 mL/min/1.73m^2); Estimated GFR (Non-African Ame >60 (>=60 mL/min/1.73m^2); Glucose 92 mg/dL (74-106); Potassium 4.0 mmol/L (3.5-5.1); Sodium 140 mmol/L (136-145)
[2025-07-05 13:09] LABS: Hematocrit 39.2 % (36.0-48.0); Hemoglobin 13.5 g/dL (12.0-16.0); Immature Granulocytes Abs Auto 0.01 10^3/uL (0.00-0.03); Immature Granulocytes Pct Auto 0.2 % (0.0-0.5); Lymphocytes Absolute Auto 1.3 10^3/uL (1.2-3.8); Mean Corpuscular HGB Conc 34.4 g/dL (29.9-35.2); Mean Corpuscular Hemoglobin 30.0 pg (26.7-34.0); Mean Corpuscular Volume 87.1 fL (81.0-99.0); Platelet Count 255 10^3/uL (150-450); Red Blood Count 4.50 10^6/uL (4.20-5.40); White Blood Count 5.4 10^3/uL (4.0-11.0)
== END 2025-07-05 12:08 | disposition home or self-care (01) ==
LOC: LAB 12:10
PROVIDERS: PCP Family Medicine; Visit Provider Internal Medicine Cardiovascular Disease
DX: I47.10 Supraventricular tachycardia, unspecified (principal)
CPT/HCPCS: 36415; 80048; 85025

== ENCOUNTER 2025-08-01 10:20 | Outpatient (OUT) | payer OTHER, SELFPAY ==
--- OUTSIDE RECORDS SUMMARY | 2025-08-01 10:26 | XMS_ITS | CCD ---
Author Organization [facility] Care Team Providers Care Inside Sales Territory Manager Name Role Phone PROVIDER, UNKNOWN Unavailable Unavailable [...] TOBAR Attending Unavailable MARILYN TOBAR Attending Unavailable JOSH VARELA Admitting Unavailable JOSH VARELA Attending Unavailable KEITH TILLEY Attending Unavailable JOSH VARELA Attending Unavailable JOSH VARELA Referring Unavailable JOSH VARELA Referring Unavailable Allergies Allergy ClassificationReported Allergen(s)Allergy TypeDate of OnsetReaction(s) Facility (2 sources)Penicillins; Translations: [PENICILLINS]Drug allergy (disorder) 05-26-3600Pcr [facility] Repository (8 sources)PenicillinsPropensity to adverse [id number], Hives, Shortness of breath, WheezingNOMS Healthcare Work Phone: (1 source)Sulfamethoxazole / Trimethoprim; Translations: [SULFAMETHOXAZOLE-TRIMETHOPRIM]Drug Ibfyhvh66-72-6852UbaysumugjWVUMedicine [facility] Repository Medications Current Medications MedicationDrug Class(es)DatesSig (Normalized)Sig (Original)magnesium oxide 400 mg oral tablet (2 sources)Start: 10-06-2024 End: 03-12-0835anyj 1 tablet by mouth once dailymagnesium oxide (Mag-Ox) 400 MG tablet Indications: Hormone imbalance , Mood changes Take 1 tablet (400 mg) by mouth Daily 30 tablet 11 10/06/2024 11/05/2024 Active Completed/Discontinued Medications MedicationDrug Class(es)DatesSig (Normalized)Sig (Original)Ethinyl Estradiol / Levonorgestrel (8 sources)Progestin, Estrogen, Progestin-containing Intrauterine DeviceStart: 08-30-2024 End: 54-12-2995yepm 1 tablet by mouth once daily, then take 1 tablet by mouth once dailylevonorgestrel-ethinyl estradiol (Jolessa) 0.15-0.03 MG tablet Indications: Hormone imbalance Take 1 tablet by mouth Daily Take 1 tablet by mouth daily 84 tablet 3 08/30/2024 11/29/2024 DiscontinuedStart: 08-30-2024 End: 32-48-6577fdkp 1 tablet by mouth once daily, then take 1 tablet by mouth once dailylevonorgestrel-ethinyl estradiol (Jolessa) 0.15-0.03 MG tablet Indications: Hormone imbalance Take 1 tablet by mouth Daily Take 1 tablet by mouth daily 84 tablet 3 08/30/2024 08/30/2025 ActivevalACYclovir 500 mg oral tablet (6 sources)Herpesvirus Nucleoside Analog DNA Polymerase Inhibitor, Herpes Simplex Virus Nucleoside Analog DNA Polymerase Inhibitor, Herpes Zoster Virus Nucleoside Analog DNA Polymerase InhibitorStart: 08-30-2024 End: 76-59-5630hnuq 1 tablet by mouth once dailyvalACYclovir (Valtrex) 500 MG tablet Indications: H/O herpes genitalis Take 1 tablet (500 mg) by mouth Daily 30 tablet 11 08/30/2024 10/06/2024 Discontinued Problems Active Problems Problem ClassificationProblemDateDocumented DateEpisodic/ChronicAttention- deficit, conduct, and disruptive behavior disorders (2 sources)Attention deficit hyperactivity disorder; Translations: [ADHD]Onset: 15-19-6584UiskotbOnjxzgp dysrhythmias (2 sources)Supraventricular tachycardiaOnset: 57-15-2347UzjxmwdRxdufqzpfa and other anemia (1 source)Anemia, unspecified; Translations: [ANEMIA UNSPECIFIED]Onset: 76-15-2329MniflqvaSjfddkid mellitus without complication (1 source)Type 1 diabetes mellitus without complications; Translations: [TYPE 1 DM WITHOUT COMPLICATIONS]Onset: 64-03-0562RhgepexInzxhqah mellitus without complication (1 source)Other abnormal glucose; Translations: [OTHER ABNORMAL GLUCOSE]Onset: 87-78-5282UfbuotobMbogrhcrn of lipid metabolism (1 source)Pure hypercholesterolemia, unspecified; Translations: [PURE HYPERCHOLESTEROLEMIA UNSPEC]Onset: 21-12-3162MvtfnxiJniqbgc and fatigue (1 source)Other fatigue; Translations: [OTHER FATIGUE]Onset: 30-98-6498Ljilwmzh Mood disorders (6 sources)Disturbance in mood; Translations: [Emotional lability]Onset: 302198-67-0243YcvqmypcJewnm endocrine disorders (10 sources)Disorder of endocrine system; Translations: [Endocrine disorder, unspecified]Onset: 635876-92-2772NhjlkrudYraea gastrointestinal disorders (1 source)Diarrhea, unspecified; Translations: [DIARRHEA UNSPECIFIED]Onset: 24-88-0901VdhggovoVwmtw infections; including parasitic (2 sources)History of sexually transmitted disease; Translations: [Personal history of other infectious and parasitic diseases]54-77-6358TcuepcmzQncoy upper respiratory disease (1 source)Nasal congestion; Translations: [NASAL CONGESTION]Onset: 10-03-2022 EpisodicResidual codes; unclassified (4 sources)Insomnia, unspecified; Translations: [INSOMNIA UNSPECIFIED]Onset: 24-17-8536XcbrqayaXhieniin codes; unclassified (8 sources)Amnesia; Translations: [Other amnesia]Onset: 962691-06-9468 EpisodicUnclassified (3 sources)CONTACT W/AND (SUSP) EXPOS COVID-19; Translations: [CONTACT W/AND (SUSP) EXPOS COVID-19]Onset: 06-49-2752Ulxhgcqifpyc (1 source)COUGH, UNSPECIFIED; Translations: [COUGH, UNSPECIFIED]Onset: 95-29-9819Pgahldrnhynl (1 source)Supraventricular tachycardia, unspecified; Translations: [Supraventricular tachycardia, unspecified]Onset: 35-78-7000Srxcifybpqdv (2 sources)New Patient; Translations: [New Patient]Onset: 06-09-2025 Past or Other Problems Problem ClassificationProblemDateDocumented DateEpisodic/ChronicUnclassified (1 source)CONTACT W/AND (SUSP) EXPOS COVID-19; Translations: [CONTACT W/AND (SUSP) EXPOS COVID-19]Onset: 39-66-0204Qwdhofezslaj (1 source)Supraventricular tachycardia, unspecified; Translations: [Supraventricular tachycardia, unspecified]Onset: 07-10-2025 Results Test NameValueInterpretationReference RangeFacilityHPon 33-83-5854VZBY Electrophysiology Consult Note [place] [facility] - [facility] Reason for visit: SVT HPI: Starla Rod is a 34 y.o. year old with past medical history of ADHD who recently presented to [facility] on 05/19/2025 with chest pain and [...] Allergies: Allergies[3] Weight: 55.3kg Visit Vitals BP 115/73 Pulse 86 Resp 17 SpO2 100% OB Status Having periods Smoking Status Every Day Meds: Medications Ordered Prior to Encounter[4] Physical [...] as the possibility of valve damage from entrapment leading to valve regurgitation. Based on the type of arrhythmia, the risk would vary. If (more content not included)...[facility] Medical CenterNURSNOTEon 37-06-7620UZGCKRGRHI educated pt on d/c instructions. This included: site care, limited physical activity, resume normal diet, future appointments, medications, and moderate sedation instructions. RN educated pt on when to notify physician and when to go to the hospital. RN encouraged pt to voice any questions or concerns, and answered any questions or concerns if pt verbalized. Pt was wheeled off of unit with all of belongings.NormalClinton Memorial HospitalOrders Onlyon 06-46-6508Gauhaw [id number] Starla Rod 1990 F Date Provider Department Center 07/03/2025 [facility] [place] [facility] Family History Problem Relation Age of Onset Hypertension Mother Hypertension Father Family Status - Relation Status Age at Mother Alive Father AliveNormalUniProMedica Defiance Regional HospitalOrders Onlyon 06-23-2025 Orders [id number] Starla Rod 1990 F Date Provider Department Center 06/23/2025 [id number], TABATHA JEFF Andrade Family History Problem Relation Age of Onset Hypertension Mother Hypertension Father Family Status - Relation Status Age at Mother Alive Father AliveNormalUWayne HospitalOffice Visiton 06-20-2025 Follow-up [id number] Starla Rod 1990 F Date Provider Department Center 06/20/2025 JOSH SEARS CARD Johanna [facility] Family History Problem Relation Age of Onset Hypertension Mother Hypertension Father Family Status - Relation Status Age at Mother Alive Father Alive Level of Service:77769 MD OFFICE/OUTPATIENT NEW HIGH MDM 60 MINUTESNormal [facility] HospitalOffice Visiton 02-44-6867Oqubbq-up visit [id number] Starla Rod 1990 F Date Provider Department Center 06/09/2025 [id number] COTTER Hos Family History Problem Relation Age of Onset Hypertension Mother Hypertension Father Family Status - Relation Status Age at Mother Alive Father Alive Level of Service:44497 MD OFFICE/OUTPATIENT NEW LOW MDM 30 MINUTES Reason for Visit and Comments: New Patient [632] - Patient is here as a new patient to establish care with cardiology SVT [Other] ADHD [13] Holter monitor 3 weeks ago [Other] Head pressure/pain [Other]NormalUnWVUMedicine Harrison Community HospitalMLR HEMOGLOBIN A1Con 49-22-6323Woktnly [Mass/Vol]100 mg/dLNOSalem Memorial District HospitalXvsfzpdolfGeY5e (Bld) [Mass fraction]5.1 %4.5 - 6.2 %NOMS HealthcareComment on above:ADA RECOMMENDED LIMIT 4.0 - 6.0 ADA THERAPEUTIC TARGET < 7.0 ACTION SUGGESTED > 7.0 CLINISYNCNOShriners Hospitals for Children PYLORI ANTIBODY IGGon 12-10-2022H. PYLORI IGG ABS0.34 Index ValueNormal0.00-0.79Mercy Health Allen HospitalComment on above:Result Comment: Negative <0.80 Equivocal 0.80 - 0.89 Positive >0.89Performed By: #### T7, RANDAL, LIPA, CMP, LIPID, TSH #### [facility] [address] [place] [address] Dr. Lisa ChongINSULINon 06-79-3278Rwdlrfk20.6 uIU/mLNormal2.6-24.9The [facility] CenterComment on above:Performed By: #### INSULIN #### [facility] [address] [place] [address] Dr. Lisa ChongAMYLASEon 94-49-4846Stfbhuw [Catalytic activity/Vol]59 U/LNormal 25-115The [facility] CenterComment on above:Performed By: #### T7, RANDAL, LIPA, CMP, LIPID, TSH #### [facility] [address] [place] [address] Dr. Lisa Benjamin AUTO DIFFon 66-83-0809ALJF #0.0 103/ulNormal0.0-0.1The [facility] CenterComment on above:Performed By: #### T7, RANDAL, LIPA, CMP, LIPID, TSH #### [facility] [address] [place] [address] Dr. Lisa ChongBasophils/100 WBC (Bld)0.5 %Normal0.2-2.0The [facility] Comment on above:Performed By: #### T7, RANDAL, LIPA, CMP, LIPID, TSH #### [facility] [address] [place] [address] Dr. Gonzalez ChangELia #0.0 103/ulNormal0.0-0.7The [facility] CenterComment on above: Performed By: #### T7, RANDAL, LIPA, CMP, LIPID, TSH #### [facility] [address] [place] [address] Dr. Lisa Mixosinophils/100 WBC (Bld)0.0 %Critically low0.9-7.0The [facility] CenterComment on above:Performed By: #### T7, RANDAL, LIPA, CMP, LIPID, TSH #### [facility] [address] [place] [address] Dr. Lisa Mixrythrocyte distribution width (RBC) [Ratio]12.9 %Kawrdc84.0-15.0 The [facility] CenterComment on above:Performed By: #### T7, RANDAL, LIPA, CMP, LIPID, TSH #### [facility] [address] [place] [address] Dr. Lisa ChongHematocrit (Bld) [Volume fraction]42.7 %Gdxopw52.0-48.0The Cleveland Clinic Foundationment on above:Performed By: #### T7, RANDAL, LIPA, CMP, LIPID, TSH #### [facility] [address] [place] [address] Dr. Lisa ChongHemoglobin (Bld) [Mass/Vol]14.4 g/qGKxwcpk61.0-16.0The [facility] CenterComment on above:Performed By: #### T7, RANDAL, LIPA, CMP, LIPID, TSH #### [facility] [address] [place] [address] Dr. Lisa Rutherford #0.02 10e3/ulNormal0.00-0.03The [facility] CenterComment on above:Performed By: #### T7, RANDAL, LIPA, CMP, LIPID, TSH #### [facility] [address] [place] [address] Dr. Lisa Rutherford %0.4 %Normal0.0-0.5The [facility] CenterComment on above: Performed By: #### T7, RANDAL, LIPA, CMP, LIPID, TSH #### [facility] [address] [place] [address] Dr. Lisa Jolly #1.6 103/ulNormal1.2-3.8The [facility] CenterComment on above:Performed By: #### T7, RANDAL, LIPA, CMP, LIPID, TSH #### [facility] [address] [place] [address] Dr. Lisa Wanhocytes/100 WBC (Bld)28.0 %Gkasif58.5-60.0The [facility] CenterComment on above:Performed By: #### T7, RANDAL, LIPA, CMP, LIPID, TSH #### [facility] [address] [place] [address] Dr. Lisa BenitoUAL DIFF REQNONormalThe [facility] CenterComment on above: Performed By: #### T7, RANDAL, LIPA, CMP, LIPID, TSH #### [facility] [address] [place] [address] Dr. Lisa Wilkerson (RBC) [Entitic mass]28.3 alVunsen63.7-34.0The [facility] CenterComment on above:Performed By: #### T7, RANDAL, LIPA, CMP, LIPID, TSH #### [facility] [address] [place] [address] Dr. Lisa Britt (RBC) [Mass/Vol]33.7 g/fGJhgtjm46.9-35.2The [facility] CenterComment on above:Performed By: #### T7, RANDAL, LIPA, CMP, LIPID, TSH #### [facility] [address] [place] [address] Dr. Lisa Britt (RBC) [Entitic vol]83.9 zBLukzhf53.0-99.0The [facility] CenterComment on above:Performed By: #### T7, RANDAL, LIPA, CMP, LIPID, TSH #### [facility] [address] [place] [address] Dr. Lisa Patel #0.3 103/ulNormal0.3-0.8The [facility] CenterComment on above:Performed By: #### T7, RANDAL, LIPA, CMP, LIPID, TSH #### [facility] [address] [place] [address] Dr. Lisa Onofreocytes/100 WBC (Bld)5.2 %Normal1.7-12.0The [facility] Comment on above:Performed By: #### T7, RANDAL, LIPA, CMP, LIPID, TSH #### [facility] [address] [place] [address] Dr. Lisa William #3.7 103/ulNormal1.4-6.5The [facility] CenterComment on above:Performed By: #### T7, RANDAL, LIPA, CMP, LIPID, TSH #### [facility] [address] [place] [address] Dr. Lisa Oatesutrophils/100 WBC (Bld)65.9 %Yesusm74.0-75.0The [facility] CenterComment on above:Performed By: #### T7, RANDAL, LIPA, CMP, LIPID, TSH #### [facility] [address] [place] [address] Dr. Lisa Rahman mean volume (Bld) [Entitic vol]10.1 fLNormal9.5-13.5The Craig HospitalComment on above:Performed By: #### T7, RANDAL, LIPA, CMP, LIPID, TSH #### [facility] [address] [place] [address] Dr. Lisa ChongPLT292 103/uaWhdbfh089-263Dwl [facility] on above: Performed By: #### T7, RANDAL, LIPA, CMP, LIPID, TSH #### [facility] [address] [place] [address] Dr. Lisa ChongRBC5.09 106/ulNormal4.20-5.40The [facility] on above:Performed By: #### T7, RANDAL, LIPA, CMP, LIPID, TSH #### [facility] [address] [place] [address] Dr. Lisa ChongWBC5.6 103/ulNormal4.0-11.0The [facility] Foundationment on above: Performed By: #### T7, RANDAL, LIPA, CMP, LIPID, TSH #### [facility] [address] [place] [address] Dr. Lisa ChongFRTIMUR THYROXINE INDEX T7on 30-60-8898CFU5.15Dgrjso9.30-4.50The [facility] on above:Performed By: #### T7, RANDAL, LIPA, CMP, LIPID, TSH #### [facility] [address] [place] [address] Dr. Lisa ChongT3U36.0 %Ozzsgu45.0-39.0The [facility] Foundationment on above: Performed By: #### T7, RANDAL, LIPA, CMP, LIPID, TSH #### [facility] [address] [place] [address] Dr. Lisa ChongT4 [Mass/Vol]9.50 ug/dLNormal4.80-13.90The [facility] Comment on above:Performed By: #### T7, RANDAL, LIPA, CMP, LIPID, TSH #### [facility] [address] [place] [address] Dr. Lisa ChongGLYCOHEMOGLOBIN A1Con 49-96-2554POG RECOMMENDATIONSEE BELOWNormal The [facility] CenterComment on above:Result Comment: ADA RECOMMENDED LIMIT 4.0 - 6.0 ADA THERAPEUTIC TARGET < 7.0 ACTION SUGGESTED > 7.0Performed By: #### A1C #### [facility] [address] [place] [address] Dr. Lisa ChongGlucose [Mass/Vol]103 mg/dLNoMartins Ferry HospitalComment on above:Performed By: #### A1C #### [facility] [address] [place] [address] Dr. Lisa ChongHbA1c (Bld) [Mass fraction]5.2 %Normal4.5-6.2The [facility] CenterComment on above:Performed By: #### A1C #### [facility] [address] [place] [address] Dr. Lisa Dubois 66-85-2150Lszk [Mass/Vol]157.0 ug/yMKtbtzf24.0-170.0The [facility] CenterComment on above:Performed By: #### T7, RANDAL, LIPA, CMP, LIPID, TSH #### [facility] [address] [place] [address] Dr. Lisa ChongLIPASEon 26-47-7614Uzygys [Catalytic activity/Vol]125.0 U/LNormal 73.0-393.0[facility] HospitalComment on above:Performed By: #### T7, RANDAL, LIPA, CMP, LIPID, TSH #### [facility] [address] [place] [address] Dr. Lisa ChongLIPID PROFILEon 50-78-5112ZRGW-HDL RATIO NORMSEE BELOWrmHenry County HospitalComment on above:Result Comment: 3.3 - 4.4 LOW RISK 4.4 - 7.1 AVERAGE RISK 7.1 - 11.0 MODERATE RISK >11.0 HIGH RISKPerformed By: #### T7, RANDAL, LIPA, CMP, LIPID, TSH #### [facility] [address] [place] [address] Dr. Lisa ChongCholesterol [Mass/Vol]198 mg/dLNormal<=200The [facility] Comment on above:Performed By: #### T7, RANDAL, LIPA, CMP, LIPID, TSH #### [facility] [address] [address] [address] Lisa ChongCholesterol in HDL [Mass/Vol]56 mg/aAGlbvgo54-98MvmMercy Health Allen HospitalComment on above:Performed By: #### T7, RANDAL, LIPA, CMP, LIPID, TSH #### [facility] [address] [address] [address] Lisa Steinesterol in LDL [Mass/Vol]123.4 mg/dLNoMartins Ferry HospitalComment on above:Performed By: #### T7, RANDAL, LIPA, CMP, LIPID, TSH #### [facility] [address] [place] [address] Dr. Lisa Monroy.total/Cholesterol in HDL [Mass ratio]3.5 {ratio} NormalMercy Health Allen HospitalComment on above:Performed By: #### T7, RANDAL, LIPA, CMP, LIPID, TSH #### [facility] [address] [place] [address] Dr. Lisa ChongHDMary NORMAL> or = 60 mg/dl - LOW CARDIOVASCULAR RISK <40 mg/dl - HIGH CARDIOVASCULAR RISKCrystal Clinic Orthopedic CenterComment on above:Performed By: #### T7, RANDAL, LIPA, CMP, LIPID, TSH #### [facility] [address] [place] [address] Dr. Lisa ChongLDL CALC NORMALSEE BELOWNoMartins Ferry HospitalComment on above:Result Comment: <100 mg/dl OPTIMAL 100 - 129 mg/dl NEAR OR ABOVE OPTIMAL 130 - 159 mg/dl BORDERLINE HIGH 160 - 189 mg/dl HIGH >190 mg/dl VERY HIGH Performed By: #### T7, RANDAL, LIPA, CMP, LIPID, TSH #### [facility] [address] [place] [address] Dr. Lisa ChongTriglyceride [Mass/Vol]93 mg/dLNormal<=150[facility] Comment on above:Performed By: #### T7, RANDAL, LIPA, CMP, LIPID, TSH #### [facility] [address] [place] [address] Dr. Lisa ChongVLDL CALC18.6 mg/dLNormalThe [facility] CenterComment on above: Performed By: #### T7, RANDAL, LIPA, CMP, LIPID, TSH #### [facility] [address] [place] [address] Dr. Lisa ChongPRORhett 14(COMP METB)on 69-75-6204Oqpqvap [Mass/Vol]4.6 g/dLNormal 3.4-5.0The [facility] CenterComment on above:Performed By: #### T7, RANDAL, LIPA, CMP, LIPID, TSH #### [facility] [address] [place] [address] Dr. Lisa ChongAlbumin/Globulin [Mass ratio]1.3 {ratio}NormalThe [facility] CenterComment on above:Performed By: #### T7, RANDAL, LIPA, CMP, LIPID, TSH #### [facility] [address] [place] [address] Dr. Lisa Heredia [Catalytic activity/Vol]63 U/HYmeskj94-694Fwc [facility] CenterComment on above:Performed By: #### T7, RANDAL, LIPA, CMP, LIPID, TSH #### [facility] [address] [place] [address] Dr. Lisa Gibson [Catalytic activity/Vol]18 U/BWhidlq38-90Xrx [facility] CenterComment on above:Performed By: #### T7, RANDAL, LIPA, CMP, LIPID, TSH #### [facility] [address] [place] [address] Dr. Lisa Heredia gap [Moles/Vol]10.3 mmol/LNormalThe [facility] on above:Performed By: #### T7, RANDAL, LIPA, CMP, LIPID, TSH #### [facility] [address] [place] [address] Dr. Lisa Casas [Catalytic activity/Vol]13 U/LCritically iws81-24Nbb [facility] CenterComment on above:Performed By: #### T7, RANDAL, LIPA, CMP, LIPID, TSH #### [facility] [address] [address] [address] Lisa ChongBilirubin [Mass/Vol]0.6 mg/dLNormal0.2-1.0[facility] Comment on above:Performed By: #### T7, RANDAL, LIPA, CMP, LIPID, TSH #### [facility] [address] [place] [address] Dr. Lisa ChongCalcium [Mass/Vol]9.6 mg/dLNormal8.5-10.1The [facility] Comment on above:Performed By: #### T7, RANDAL, LIPA, CMP, LIPID, TSH #### [facility] [address] [place] [address] Dr. Lisa ChongChloride [Moles/Vol]102 mmol/PYjuqjv94-461BnwMercy Health Allen Hospital Comment on above:Performed By: #### T7, RANDAL, LIPA, CMP, LIPID, TSH #### [facility] [address] [place] [address] Dr. Lisa ChongCO2 [Moles/Vol]28.7 mmol/FBuxmet14.0-32.0[facility] Comment on above:Performed By: #### T7, RANDAL, LIPA, CMP, LIPID, TSH #### [facility] [address] [place] [address] Dr. Lisa ChongCreatinine [Mass/Vol]0.59 mg/dLNormal0.55-1.02[facility] HospitalComment on above:Performed By: #### T7, RANDAL, LIPA, CMP, LIPID, TSH #### [facility] [address] [place] [address] Dr. Lisa MixGFR-AF CHADIAN>60Normal>=60The [facility] CenterComment on above:Performed By: #### T7, RANDAL, LIPA, CMP, LIPID, TSH #### [facility] [address] [place] [address] Dr. Lisa MixGFR-NON AF CHADIAN>60Normal>=60The [facility] CenterComment on above:Performed By: #### T7, RANDAL, LIPA, CMP, LIPID, TSH #### [facility] [address] [address] [address] Lisa ChongGlobulin (S) [Mass/Vol]3.5 g/dLNormHenry County HospitalComment on above:Performed By: #### T7, RANDAL, LIPA, CMP, LIPID, TSH #### [facility] [address] [address] [address] Lisa ChongGlucose [Mass/Vol]96 mg/qNCjyrwy99-182Xso [facility] Comment on above:Performed By: #### T7, RANDAL, LIPA, CMP, LIPID, TSH #### [facility] [address] [place] [address] Dr. Lisa ChongPotassium [Moles/Vol]4.0 mmol/LNormal3.5-5.1The [facility] Comment on above:Performed By: #### T7, RANDAL, LIPA, CMP, LIPID, TSH #### [facility] [address] [place] [address] Dr. Lisa ChongProtein [Mass/Vol]8.1 g/dLNormal6.4-8.2[facility] Comment on above:Performed By: #### T7, RANDAL, LIPA, CMP, LIPID, TSH #### [facility] [address] [place] [address] Dr. Lisa ChongSodium [Moles/Vol]137 mmol/UWwcafo427-788OetMercy Health Allen Hospital Comment on above:Performed By: #### T7, RANDAL, LIPA, CMP, LIPID, TSH #### [facility] [address] [place] [address] Dr. Lisa ChongUrea nitrogen [Mass/Vol]14.0 mg/dLNormal7.0-18.0The [facility] CenterComment on above:Performed By: #### T7, RANDAL, LIPA, CMP, LIPID, TSH #### [facility] [address] [place] [address] Dr. Lisa ChongUrea nitrogen/Creatinine [Mass ratio]23.7 mg/mgNoMartins Ferry HospitalComment on above:Performed By: #### T7, RANDAL, LIPA, CMP, LIPID, TSH #### [facility] [facility] [address] [place] [address] Dr. Lisa Corral 07-66-8652KPB0.713 uIU/mLNormal0.358-3.740Mercy Health Allen HospitalComment on above:Performed By: #### T7, RANDAL, LIPA, CMP, LIPID, TSH #### [facility] [address] [address] [address] Lisa ChongCovid-19 PCR (CVDTB)on 60-63-5602CUNY-CoV-2 (COVID-19) RNA DAVIS+probe Ql (Unsp spec)Not detectedNormalNOT DETECTEDThe [facility] Comment on above:Result Comment: When diagnostic testing is negative, the [...] for this test is supported by the Endodontist of Health and Human Service's declaration that circumstances exist to justify the emergency use of in vitro diagnostics for the detection and/or diagnosis of the virus that causes COVID-19. This EUA will remain in effect for the duration of the COVID-19 declaration justifying emergency of IVDs, unless it is terminated or revoked by the FDA (after which the test may no longer be used).Performed By: #### CVDTBH #### [facility] [address] [place] [address] Dr. Lisa Coffman A AND B AGon 73-58-8894PJZBZMILISFYOSelect Medical Specialty Hospital - Boardman, IncComment on above:Result Comment: Negative for Flu A protein angiten. Infection due to Flu A cannot be ruled out. FluA angiten in the sample may be below the detection limit of the test.Performed By: #### INFLUAB #### [facility] [address] [address] [address] Lisa Vicente [facility] City HospitalComment on above: Result Comment: Negative for Flu B protein antigen. Infection due to Flu B cannot be ruled out. FluB antigen in the sample may be below the detection limit of the test.Performed By: #### INFLUAB #### [facility] [address] [place] [address] Dr. Lisa King AGNegativeNormalNEGATIVE SEE COMMENTThe [facility] CenterComment on above:Performed By: #### INFLUAB #### [facility] [address] [address] [address] Lisa Macdonald AGNegativeNormalNEGATIVE SEE COMMENTThe [facility] CenterComment on above:Performed By: #### INFLUAB #### [facility] [address] [place] [address] Dr. Lisa ChongOperative Reporton 74-71-0174Pvsareurp Report [id number]#1.00CD:[address] [place], [place] [address]Lab Reportson 23-09-5607Egp Reports [id number]#1.00CD:[address] [place], [place] [address]Formson [id number]#1.00CD:[address] [place], [place] [address]Forms [id number]#1.00CD:[address] [place], [place] [address]Physician Referralon 40-00-0422Fqwwpurgs Referral [id number]#1.00CD:[address] [place], [place] [address]Ambulatory Clinical Summaryon 24-44-5333Itloiqhady Clinical Summary {a5-84-31-2p-47-23-7i-sr-91-5t-j9-g8-08-2a-8b-84}CD:086887GabebjDchrgvLima Memorial HospitalAmbulatory Clinical Summary {a6-x0-h4-a4-ue-y1-63-24-qk-25-17-38-24-29-2e-1d}CD:[id number] Memorial HospitalAmbulatory Clinical Summary {8q-18-k1-r7-x6-3q-14-80-7k-17-43-vx-86-bb-e7-74}CD:[id number] Memorial HospitalPatient Educationon 80-12-0738Spxithw EducationFamily Medicine Urinary Frequency The number of times a normal person urinates depends upon how much liquid they take in and how muchliquid they are losing. If the temperature is hot and there is high humidity then the person will sweat more and usually breathe a little more frequently. These factors decrease the amount of frequency of urination that would be considered normal. The amount you drink is easily determined, but the amount of fluid lost is sometimes more difficultto calculate. Fluid is lost in two ways: [...] from a little less than a quart toa little more than a quart of fluid a day. In normal temperatures and activity levels the average person may urinate 4 to 7 times in a 24-hourperiod. Needing to urinate more often than that [...] the bladder. This loss of sensation makes itharder to sense the bladder needs to be emptied. Over a period of years the bladder is stretched out by constant overfilling. This weakens the bladder muscles so that the bladder does not empty well and has less capacity to fill with new urine. ? Interstitial cystitis (also called painful bladder syndrome). This condition develops because thetissues that line the insider of the bladder [...] contrast dye and then asked to urinate. X- rays are taken to see how your bladder is working. TREATMENT It is important for you to be evaluated to determine if the amount or frequency that you have is unusual or abnormal. If it is found to be abnormal the cause should be determined and this can usuallybe found out easily. Depending upon the cause treatment could include medication, stimulation of the nerves, or surgery. There are not too many things that you can do as an individual to change your urinary frequency. Itis important that you balance the amount of fluid intake needed to compensate for your activity andthe temperature. Medical problems will be diagnosed and taken care of by your physician. There is no particular bladder training such as Kegel's exercises that you can do to help urinary frequency. Th is is an exercise this is usually done [...] Document Reviewed: 07/11/2010 ExitCare? Patient Information ?2013 Tok3n.[facility] HospitalUrology Office/Clinic Noteon 98-75-1541Rlijccw Office/Clinic NoteChief Complaint Referral for incomplete bladder emptying HPI Staff Referral for incomplete bladder emptying. Pt had a renal US done 04/13/2020 that showed unremarkableappearance of the kidneys and bladder. No hydronephrosis was noted. Prevoid bladder volume was 450ml and postvoid residual was 123ml. Pt states that she has been treated multiple times for UTI symptoms throughout her life but in the past year her symptoms have intensified. She states that her urinary symptoms are happening much more frequently. She has just finished a week of Erythromycin becauseshe had strep throat. Her PVR today was [...] Illness Reviewed UA. Reviewed renal u/s and CARDIAC CATH TECH paper work. There have been no associated [...] unremarkable appearance of the kidneys and bladder. Nohydronephrosis was noted. Prevoid bladder volume was 450ml [...] UTI symptoms throughout her life but in thepast year her symptoms have intensified. Will keep pt. on a low dose antibiotic qd. Script for Macrobid 100mg qd #60 sent to [facility] in [place]. Discussed the medication side effects, and the [...] All questions/concerns were discussed. Pt. to call theoffice if sheencounters any issues prior. Pt. acknowledges understanding. I have reviewed the previous health record information and history for this pt. from Dr. Hollingsworth. Follow-up With When Contact Information PREETI ZHOU, Jimbo [address] [place] [address]- [phone] Additional Instructions: Patient Education Urinary Frequency I, [...] Protein Urine Dipstick: Negative (05/21/20 12:34:00) Specific Wray Urine Dipstick: 1.015 (05/21/20 12:34:00) Urine Appearance Urine Dipstick: Clear (05/21/20 12:34:00) Urine Color Urine Dipstick: Yellow (05/21/20 12:34:00) Urobilinogen Urine Dipstick: Normal 0.2-1 EU/dl (05/21/20 12:34:00) pH Urine Dipstick: 6.5 (05/21/20 12:34:00)[facility] Comment on above:Result Comment: Electronically Signed By: Jimbo HOLLINGSWORTH MD\.br\Date and Time Signed: 05/21/20 13:42 EDT\.br\Electronically Co-Signed By: Paula Guerra MA\.br\Date and Time Co-Signed: 05/21/2013:37 EDT Vital Signs Date TimeVital SignValuePerforming UccewiyfkRjeuijnl29-14-7992 14:59-0500Body .05 kgCorey Amadou DO Work Phone: [facility] HealthcareXhacwshxyn42-85-3729 14:59-0500Diastolic blood wfdckulu13 mm[Hg]Marilyn Amadou DO Work Phone: [phone] HealthcareTugpjazhji94-38-8436 14:59-0500Systolic blood mm[Hg]Marilyn Amadou DO Work Phone: [facility] HealthcareIjhkrotlph60-27-7894 11:10-0500Body bdlexw78.56 kgCorey Amadou DO Work Phone: [facility] HealthcareCxqufykjew48-12-9541 11:10-0500Diastolic blood pewniurz87 mm[Hg]Marilyn Amadou DO Work Phone: noSalem [facility] HospitalCbfeggbcbn94-27-0292 11:10-0500Systolic blood tjwnymqn852 mm[Hg]Marilyn Amadou DO Work Phone: noSalem [facility] HospitalHbejqgliwi01-10-1273 13:30-0500Body jbdgah11.96 kgCorey Amadou DO Work Phone: NOSalem Memorial District HospitalImyhsfhfsu15-74-1079 13:30-0500Diastolic blood sfqmjpeg10 mm[Hg]Marilyn Amadou DO Work Phone: noSalem [facility] District HospitalLbukpfexrn50-14-7675 13:30-0500Systolic blood vokstbvi603 mm[Hg]Marilyn Amadou DO Work Phone: noNY [facility] Encounters Encounter DateEncounter TypeCare ProviderFacilityStart: 47-15-6458iwbrihxdtjQBSZSelect Medical Specialty Hospital [facility] Akrontart: 07-10-2025 End: 52-75-9044mhgordnhsyZWKPSelect Medical Specialty Hospital - Akrontart: 06-20-2025 End: 42-54-8402ahfuhugwdvIERDSelect Medical Specialty Hospital - Akrontart: 06-09-2025 End: 11-91-5602hvfwwynqrqLYJJC [facility] Hospitaltart: 11-29-2024 End: 37-94-2635Prilzov encounter procedureCorey Amadou DO Work Phone: [facility] Work Phone: Start: 11-29-2024 End: 81-27-1721Wkjfxgtp preventive med est patient 18-39 yrsCorey Amadou DO Work Phone: noms BCP OBComment on above:Well woman exam with routine gynecological examStart: 11-29-2024 End: 28-11-9597klvfywebmwKABGD FAZIONot AvailableStart: 11-29-2024 End: 38-85-4291Zjyowx flowsheetCorey Amadou DO Work Phone: [facility] BCP OBStart: 11-29-2024 End: 17-67-4950Dnaqfz flowsheetCorey Amadou DO Work Phone: NOKR BCP OBStart: 10-06-2024 End: 58-05-7324Ilneed flowsheetCorey Amadou DO Work Phone: NOKC BCP OBStart: 10-06-2024 End: 45-31-2187Fhdfnv flowsheetCorey Amadou DO Work Phone: NOMS BCP OBStart: 10-06-2024 End: 00-06-8232Orwbaw outpatient visit 15 minutesCorey Amadou DO Work Phone: NOFY [facility] OBComment on above:Hormone imbalance; Mood changes; Memory lossStart: 10-06-2024 End: 22-51-7936dvpakykfqxUSZTV FAZIONot AvailableStart: 09-01-2024 End: 19-49-6631Tocinseel Result EncounterCorey Amadou DO Work Phone: NOUF External Department UnsolicitedStart: 09-01-2024 End: 00-63-6646Bytrtevdv Result EncounterCorey Amadou DO Work Phone: noms External Department UnsolicitedStart: 08-30-2024 End: 66-52-7300Yfvblr flowsheetCorey Amadou DO Work Phone: [facility] BCP OBStart: 08-30-2024 End: 67-79-1780Sfkmdc flowsheetCorey Amadou DO Work Phone: [facility] BCP OBStart: 08-30-2024 End: 16-27-9908Icyins outpatient visit 15 minutesCorey Amadou DO Work Phone: NOM[facility] OBComment on above:Hormone imbalance; Memory loss; Hormone disorder; H/O herpes genitalisStart: 08-30-2024 End: 56-31-4035aquoyuoydkXYGLX FAZIONot AvailableStart: 12-09-2022 End: 10-25-0782dgzafwxhufJG MISHA YAO .Facility:F8Yqtno: 09-30-2022 End: 08-29-3421xjacpdlkzcJL MISHA YAO .Facility:I7Imwvi: 06-10-2018 End: 73-23-2812Fknzegnoe department patient visitUNKNOWN PROVIDER Facility:[facility] Procedures DateProcedureProcedure DetailPerforming ClinicianStart: 46-65-6235JMK HEMOGLOBIN C2EWypel Amadou DO Work Phone: Start: 02-98-9589BLRVRHOAM PATIENTUNKNOWN PROVIDER Plan of Treatment DateCare ActivityDetailAuthorStart: 12-06-2025 End: 65-84-0976Jpnnkky encounter iyymxnmah82/11/2026 2:00 PM EDT Office Visit [facility] [address] [place] [id number] Marilyn Tobar, DO [address] [place] [address] [facility] BCP OBStart: 11-29-2024 End: 67-03-6998Subnsla encounter zwiotttaq64/04/2025 2:30 PM EST Office Visit [facility] [address] [place] [phone] Marilyn Tobar, DO [address] [place] [address] ArrivedNOMS BCP OBComment on above:ArrivedStart: 11-23-2024 End: 40-35-2332Eecwqtr encounter ulugwhdok35/26/2025 3:00 PM EST Office Visit [facility] [address] [place] [id number] Marilyn Tobar, DO [address] [place] [address] [facility] BCP OBStart: 10-06-2024 End: 23-66-3984Pkmdjsa encounter procedureNOMS BCP OBComment on above:Arrived Start: 08-30-2024 End: 73-10-0947E-peptideC-peptide Lab Routine Hormone disorder Expected: 08/30/2024 (Approximate), Expires: 08/30/2025NONY HealthcareComment on above: Expected: 08/30/2024 (Approximate), Expires: 08/30/2025Start: 08-30-2024 End: 48-33-5925Luptandh freeCortisol, free Lab Routine Hormone disorder Expected: 08/30/2024 (Approximate), Expires: 08/30/2025NONY HealthcareComment on above:Expected: 08/30/2024 (Approximate), Expires: 08/30/2025Start: 08-30-2024 End: 67-65-5563Rldebdm [Mass/volume] in Serum or PlasmaGlucose, random Lab Routine Hormone disorder Expected: 08/30/2024 (Approximate), Expires: 08/30/2025 NOMS HealthcareComment on above:Expected: 08/30/2024 (Approximate), Expires: 08/30/2025Start: 08-30-2024 End: 72-22-4491Tjgsrlf, totalInsulin, total Lab Routine Hormone disorder Expected: 08/30/2024 (Approximate), Expires: 08/30/2025NONY HealthcareComment on above:Expected: 08/30/2024 (Approximate), Expires: 08/30/2025Start: 08-30-2024 End: 91-76-1744Donykhkfg serumSerotonin serum Lab Routine Hormone disorder Expected: 08/30/2024 (Approximate), Expires: 08/30/2025NONY HealthcareComment on above:Expected: 08/30/2024 (Approximate), Expires: 08/30/2025Start: 08-30-2024 End: 28-35-3350XvdcynhtcprizZptsqjakuhadv Lab Routine Hormone disorder Expected: 08/30/2024 (Approximate), Expires: 08/30/2025NONY HealthcareComment on above: Expected: 08/30/2024 (Approximate), Expires: 08/30/2025Start: 08-30-2024 End: 76-87-2503Tjdcfbfcfztfm AntibodyThyroglobulin Antibody Lab Routine Hormone disorder Expected: 08/30/2024 (Approximate), Expires: 08/30/2025[facility] Comment on above:Expected: 08/30/2024 (Approximate), Expires: 08/30/2025Start: 08-30-2024 End: 87-15-5828Feqqjztwris [Units/volume] in Serum or PlasmaSTEWARD HEALTH CARE SYSTEM Healthcare Comment on above:Ordered: 08/30/2024Expected: 08/30/2024 (Approximate), Expires: 08/30/2025Start: 08-30-2024 End: 16-91-8723Vmpxdbv encounter eeudrrpta56/03/2024 1:10 PM EST Office Visit [facility] [address] [place] [phone] Marilyn Tobar DO [address] [place] [address] ArrivedKINDRED [facility] OBComment on above:ArrivedCytology Cervical or vaginal smear or scraping studyPap Smear Pathology and Cytology Routine Well woman exam with routine gynecological exam Ordered: 11/29/2024[facility] Work Phone: comment on above:Ordered: 11/29/2024DHEA-sulfateDHEA- sulfate Lab Routine Hormone disorder Ordered: 08/30/2024[facility] HealthcareComment on above:Ordered: 08/30/2024EstradiolEstradiol Lab Routine Hormone disorder Ordered: 08/30/2024[facility] Work Phone: comment on above:Ordered: 08/30/2024EstroneEstrone Lab Routine Hormone disorder Ordered: 08/30/2024[facility] HealthcareComment on above: Ordered: 08/30/2024Ferritin [Mass/volume] in Serum or PlasmaFerritin Lab Routine Hormone disorder Ordered: 08/30/2024[facility] HealthcareComment on above:Ordered: 08/30/2024Hemoglobin A1c/Hemoglobin.total in BloodHemoglobin A1c Lab Routine Hormone disorder Ordered: 08/30/2024[facility] HealthcareComment on above:Ordered: 08/30/2024Human papilloma virus DNA [Presence] in Unspecified specimen by Probe with amplificationHPV DNA probe, amplified Microbiology Routine Well woman exam with routine gynecological exam Ordered: 11/29/2024[facility] HealthcareComment on above:Ordered: 11/29/2024ProgesteroneProgesterone Lab Routine Hormone disorder Ordered: 08/30/2024[facility] HealthcareComment on above:Ordered: 08/30/2024Sex hormone binding globulinSex hormone binding globulin Lab Routine Hormone disorder Ordered: 08/30/2024[facility] HealthcareComment on above:Ordered: 08/30/2024 T3, reverseT3, reverse Lab Routine Hormone disorder Ordered: 08/30/2024[facility] HealthcareComment on above:Ordered: 08/30/2024TESTOSTERONE, FREETESTOSTERONE, FREE Lab Routine Hormone disorder Ordered: 08/30/2024[facility] HealthcareComment on above:Ordered: 08/30/2024Testosterone, free, totalTestosterone, free, total Lab Routine Hormone disorder Ordered: 08/30/2024[facility] HealthcareComment on above: Ordered: 08/30/2024Thyroid peroxidase antibodyThyroid peroxidase antibody Lab Routine Hormone disorder Ordered: 08/30/2024[facility] HealthcareComment on above: Ordered: 08/30/2024Thyroxine (T4) free [Mass/volume] in Serum or PlasmaT4, free Lab Routine Hormone disorder Ordered: 08/30/2024[facility] HealthcareComment on above: Ordered: 08/30/2024Triiodothyronine (T3) Free [Mass/volume] in Serum or Plasma T3, free Lab Routine Hormone disorder Ordered: 08/30/2024[facility] HealthcareComment on above:Ordered: 08/30/2024Vitamin D 1,25 dihydroxyVitamin D 1,25 dihydroxy Lab Routine Hormone disorder Ordered: 08/30/2024[facility] HealthcareComment on above: Ordered: 08/30/2024 Payers DatePayer CategoryPayerPolicy [id number] (Managed Care)[employer] [id number] Social History DateTypeDetailFacilityTobacco smoking status NHISTobacco smoking consumption unknownMissouri Southern HealthcareStart: 36-07-5811Saz assigned at birthAscension MacombStart: 41-68-8219Gncfja identityIdentifies as female gender (finding) [facility] HealthcareStart: 61-39-2133Gazrqr orientationHeterosexual (finding)[facility] Procedure note 07-10-2025 Note Date & GhccCywoDvfhcasr50-15-2553 NoteEP STUDY AND AVNRT ABLATION PROCEDURE NOTE DATE OF PROCEDURE: 07/10/2025 PERFORMING PHYSICIAN: Dr. Josh Varela INDICATIONS FOR PROCEDURE: 1. SVT CONSENT: Patient LOCATION: EP Lab PROCEDURAL SEDATION: Versed and Fentanyl. Moderate sedation was administered by the sedation nurse under my supervision and noted in the anesthesia log. Intraprocedural face to face sedation time: 87min. Monitoring: Cardiac telemetry, Blood pressure, continuous pulse oxymetry. FLUROSCOPY: 4.8min/ 10mGy EBL: 10cc SPECIMEN REMOVED: None PREPARATION: Preoperative antibiotics IV Ancef was administered. PROCEDURES PERFORMED: 1. Ultrasound guided vascular access for venous sheaths as documented below in procedure note. 2. Comprehensive EP study and catheter ablation for AVNRT. This includes right atrial recording and pacing, His bundle recording and right and left ventricular recording and pacing. 3. EP 3D mapping. 4. Coronary sinus recording and pacing to induce arrhythmia. 5. Induction of arrythmia with Isuprel and verification of ablation results. PROCEDURE NOTE: The risks, benefits and alternatives of the procedure were discussed with the patient who agreed to proceed. Please refer to my consult note for details of the discussion and of indications. Patient was brought to the EP lab in the post absorptive state. A procedural pause was performed verifying the patient, the procedure. The right and left groins were prepped and draped in the usual sterile fashion. Preoperative antibiotics IV Ancef was administered. Ultrasound was used to image the right and left femoral veins and it was noted to be patent and this was used for vessel entry as noted below. After infiltration with 1% lidocaine, 4 venous sheaths were placed in the right. 3000U Heparin bolus was given and bolus given subsequently to target ACT above 250. Details of catheters placed as follows. RFV: 6Fx2 CRD2 to His, Quad to RV, 8Fx 2 EZ steer to CS, Vizigo for Thermocool irrigated catheter. Once catheters were in position in RV, RA, CS, we decided to proceed with EP study. At baseline, AH and HV was normal. VEST was performed and VA conduction was noted. No evidence of retrograde accessory pathway confirmed with presence of retrograde RBBB. AEST was performed from proximal CS. AEST was performed from HRA as well as coronary sinus. AH jump was not seen with single extrastimuli but seen with double extrastimuli. With catheter movement, patient went into SVT which was narrow complex with CL of 330ms and VA timing of 10ms. Ventricular overdrive pacing was performed with VAHV response. Atrial pacing at 280ms terminated tachycardia. So at this time, I decided to pursue with ablation of slow pathway considering the diagnosis of an narrow complex tachycardia and presence of dual AV node physiology. Thermocool irrigated catheter was advanced over Vizigo sheath to target the inferior extension of the slow pathway. Power was titrated to 30W with irrigation. Junctionals were noted during ablation of the slow pathway potential. Subsequently AEST was repeated and showed no tachyinduction or jump. Isuprel was started and titrated to 3mcg/min. Repeat EP study showed no AH jump or tachycardia was noted. EP study was performed during washout also and no tachycardia was seen. At this point, I believed we achieved the end point of successfully ablating the slow pathway. Post ablation intervals was normal. At this time, catheters were removed. Sheaths were removed and hemostasis was achieved when ACT was less than 180s. AHms 69, 75 (post) HVms 35, 42 (post) VERPms 600/210, VA condunction+ AV Wenkebach ms 320 AH jump ms 700/300/270 AVNERP ms NA AERP ms 700/210 POSTOPERATIVE DIAGNOSIS: 1. Status post successful ablation of slow-fast AVNRT. 2. No evidence of retrograde accessory pathway. RECOMMENDATION: 1. Bed rest x 3 hrs Josh Varela MD Cardiac ElectrophysiologyUnWVUMedicine [facility] Clinical Note 07-10-2025 Note Date & TggbXmoaYgcelrgp09-73-3842 NotePatient: Starla Rod Procedure Information Date/Time: 07/10/25 1130 Procedure: Electrophysiology procedure - KITTY PER MARIANNE Location: [facility] 1 EP / [facility] (Cath) Providers: Josh Varela MD Clinical information reviewed: Allergies Meds OB Status Physical Exam Airway Mallampati: II TM distance: >3 FB Neck ROM: full Cardiovascular Dental Pulmonary Neurological Abdominal Anesthesia Plan ASA 3 CSE Anesthetic plan and risks discussed with patient. Use of blood products discussed with patient who. Additional Equipment RequestsUnWVUMedicine Harrison Community Hospital Progress note 06-20-2025 Note Date & YhnqSvxiZbrluiaj29-41-9798 NoteUT Electrophysiology Consult Note [place] [facility] - [facility] Reason for visit: SVT HPI: Starla Rod is a 34 y.o. year old with past medical history of ADHD who recently presented to [facility] on 05/19/2025 with chest pain and [...] Tilley. Patient is here today per Dr. Emily for SVT. Patient states she had a [...] damage from entrapmen (more content not included)... [facility] Progress note 06-09-2025 Note Date & CrsbVuydAkqkhija92-11-4680 [facility] Reason for cardiology consult: SVT Chief Complaint: Palpitations HPI: Starla Rod is a 34 y.o. female without prior [...] 05/19/2025 at 825 keiko (more content not included)...[facility] History of Present illness Narrative 11-29-2024 Note Date & BzfpWvdyMzwpezcm34-03-2406 History of Present illness Narrative* Magnolia Calvo LPN - 11/29/2024 2:30 PM EST Reason for Appointment: Patient ID: Starla Rdo is a 34 y.o. female who presents [...] of: Marilyn Tobar DO documented in this encounterNOMS Healthcare History of Present illness Narrative 10-06-2024 Note Date & ZfmwZvhvRxwzfypg09-63-3066 History of Present illness Narrative* Magnolia Calvo, FERNIE - 10/06/2024 10:40 AM EST Reason for Appointment: Patient ID: Starla Rod is a 33 y.o. female who presents for Follow-up Patient presents today for Follow up appointment to discuss results. MEDICATIONS Current Outpatient Medications Medication Instructions levonorgestrel-ethinyl estradiol (Jolessa) 0.15-0.03 MG tablet 1 tablet, Oral, Daily, Take 1 tabletby mouth daily ALLERGIES Allergies Allergen Reactions Penicillins [...] nursing note reviewed. Exam conducted with a mexican food cook present. Vitals: There is no height or [...] approaches as well. Patient given website for [facility] in [place]. Patient to schedule annual appointment on her way out of office. Documented by Magnolia Calvo LPN on behalf of: Marilyn Tobar DO [facility] History of Present illness Narrative 08-30-2024 Note Date & [id number] History of Present illness Narrative* Shelly Rodriguez LPN - 08/30/2024 1:10 PM EST Reason for Appointment: Patient ID: Starla Rod [...] nursing note reviewed. Exam conducted with a mexican food cook present. Vitals: There is no height or weight on file to calculate BMI. BP: 112/74 No LMP recorded. ASSESSMENT & PLAN ICD-10-CM 1. Hormone imbalance E34.9 2. Memory loss R41.3 Pt presents with complaints of hormone changes, hair loss, fatigued, memory loss. Pt states at workshe is forgetting to do routine things. Pt [...] of: Marilyn Tobar DO [facility] Evaluation note Note Date & TypeNoteFacilityEvaluation note* Diagnosis Hormone imbalance Memory loss Hormone disorder Unspecified endocrine disorder H/O herpes genitalis documented in this encounter [facility] Evaluation note Note Date & TypeNoteFacilityEvaluation note* Diagnosis Hormone imbalance Mood changes Unspecified episodic mood disorder Memory loss documented in this encounter [facility] Evaluation note Note Date & TypeNoteFacilityEvaluation note* Diagnosis Well woman exam with routine gynecological [...] and content) DATE CREATED AUTHOR 07/12/2018 [facility] DATE CREATED AUTHOR AUTHOR'S ORGANIZ ATION 06/18/2020 [facility] DATE CREATED AUTHOR AUTHOR'S ORGANIZ ATION 12/16/2022 [facility] DATE CREATED AUTHOR AUTHOR'S ORGANIZ ATION 12/01/2024 [facility] DATE CREATED AUTHOR AUTHOR'S ORGANIZ ATION 07/15/2025 [facility] Reason for Visit (unrecogniz ed section and content) ReasonCommentshormones changesReasonCommentsFollow-upReasonCommentsWell Women Visit FOR RECORDS PERTAINING TO PATIENTS [...] BE BASED ON THE PRIMARY CLINICAL RECORDS. [employer] provides no warranty or guarantee of the accuracy or completeness of information in this document.
--- NOTE | 2025-08-01 10:27 | XR_ITS ---
The [address] [address] Patient Name: ALEKSANDER MATT MRN: [id number] date: 1990 Sex: F Assigned Patient Location: [facility] Current Patient Location: [facility] Accession/Order Number: [id number] Exam Date: 08/01/2025 10:30 Report Date: 08/01/2025 11:02 At the request of: MISHA BLAKE MD Procedure: XR acute abdomen series ACUTE ABDOMEN SERIES WITH PA CHEST: CLINICAL HISTORY: Nausea, vomiting, diarrhea and loss of appetite for the past month. Gastroenteritis K52.9 COMPARISON: CT abdomen 01/20/2024 The chest film shows no acute cardiopulmonary findings. There is subtle dextroscoliotic curvature. Supine and upright views of the abdomen and pelvis demonstrate air within the stomach. Mild air and stool are visualized within the colon. There is no small bowel dilatation, free air or air-fluid levels. No soft tissue masses or abnormal calcifications are seen. The bony structures are intact. XR/XR acute abdomen series IMPRESSION: NO ACUTE PLAIN FILM FINDINGS. Impression dictated by: Shelly Hannah M.D. 08/01/2025 11:02 AM Dictation Location: [place] [address] Electronically authenticated by: [id number] Y Date: 08/01/2025 11:02
[2025-08-03 16:09] LABS: Calprotectin, Fecal 644 ug/g (0-120)
== END 2025-08-01 10:21 | disposition home or self-care (01) ==
PROVIDERS: PCP Family Medicine; Visit Provider Family Medicine
DX: K52.9 Noninfective gastroenteritis and colitis, unspecified (principal)
CPT/HCPCS: 36415; 74022; 83993; 84376; 87045; 87046; 87427; 87493; 89055; G0328

== ENCOUNTER 2025-08-03 15:08 | Emergency (ER) | payer OTHER, SELFPAY ==
--- OUTSIDE RECORDS SUMMARY | 2025-06-22 10:00 | XMS_ITS ---
Author Organization [facility] in [place] Address [address] [place] [address] Care Team Providers Care Furnace Helper Name Role Phone Matheus Yao Primary Care Provider REASON FOR VISIT wants martina other DR gregory send script Encounters Encounter Location Date Provider Diagnosis [facility] [address] [place] [address] 06/22/2025 Matheus Yao Plan Of Treatment No Information Progress Notes * Starla MATT MDOB:1990 (34 yo F)Acc No.[id number]:06/22/2025 UNLOCKED PROGRESS NOTE Progress Note Patient: Starla MAURO :?Warner GRADY), MDDOB:1990???Age: 34 Y???Sex:FemaleDate:06/22/2025Phone:[phone]:[id number] [place], [place] [id number] Subjective: * Chief Complaints: * 1 . wants martina other DR gregory send script. * Medical History: Objective: * Vitals: Assessment: Plan: * Treatment: * * Electronic signature of Matheus Yao MD, [id number] on 08/03/2025 at 03:20 PM EST Sign off status: PendingVisit Status:?CANC (Cancelled) * Provider: Dino Yao MD (TTC) Date: 0 06/22/2025 Generated for Printing/Faxing/eTransmitting on:?08/03/2025 03:20 PM EST
[2025-08-03 15:14] VITALS: BP 128/73; PULSE 75; O2SAT 99; BMI 21.5
--- OUTSIDE RECORDS SUMMARY | 2025-08-03 15:22 | XMS_ITS | Clinical Summary ---
Author Organization [facility] Address [address] [place] [address] Care Team Providers Care Clinical Neuropsychologist Name Role Phone Warner Yao MD Primary Care Provider [phone] Allergies Active AllergyReactionsCriticalityNoted DateCommentsPenicillinsAnaphylaxis,Hives ,Shortness of breath,FdqpsrabOlgs24/30/2000Sulfamethoxazole-TrimethoprimUnknown 06/20/2025 Medications MedicationSigDispense QuantityRefillsLast FilledStart DateEnd DateStatus metoprolol succinate XL (Toprol-XL) 50 mg 24 hr tablet Take 50 mg by mouth in the morning.Active Vyvanse 10 mg capsule Take 10 mg by mouth in the morning.Active Vyvanse 30 mg capsule Take 30 mg by mouth if needed.05/23/2025tive Active Problems ProblemNoted DateDiagnosed DateChest pain06/20/2025Fibrocystic breast changes 06/20/20252267Wmkrndvq85/23/2025Migraine, unspecified, not intractable, without status /23/2025Near ezrunza7906/20/2025Nonsustained paroxysmal supraventricular yffvywamjmb74/23/2025Opioid abuse06/20/2025Palpitations 06/11/2025SVT (supraventricular tachycardia)06/11/2025ttention deficit hyperactivity disorder (ADHD)06/11/2025Hormone fkoaooezj14/09/2025Memory loss 10/06/2024Mood aswmvmf0710/06/2024 Encounters DateTypeDepartmentCare QsvzCrtqykhgqrz03/13/2025 11:30 AM EDT - 07/10/2025 1:30 PM EDTSurgery [facility] [address] [place] [address] Josh Varela MD Electrophysiology procedure [[id number] (CPT??)]07/10/2025 9:44 AM EDT - 07/10/2025 4:19 PM EDTHospital Encounter [facility] [address] [place] [address] Josh Varela MD SVT (supraventricular tachycardia) Discharge Disposition: Home or Self Care (01)07/10/20251058Hdlldh96/06/2025Travel 07/03/2025Orders Only [facility] [address] [place] [address] Addis Sandhu RN SVT (supraventricular tachycardia) (Primary Dx)06/23/2025Orders Only [facility] ([place], [place]) [address] [place] [place] [address] Norm Whalen MD 06/20/2025 2:[address] [facility] [place] [address] [place] [place] [address] Josh Varela MD SVT (supraventricular tachycardia) (Primary Dx)06/20/2025Orders Only [facility] ([place], [place]) [address] [place] [address] Elisabeth Pinto MA SVT (supraventricular tachycardia) (Primary Dx)06/19/2025Orders Only [facility] ([place], [place] [address] [place] [address] Prema Stallings MA Supraventricular tachycardia (Primary Dx)06/09/2025 3:[address] [facility] ([place], [place] [address] [place] [facility] [address] Jose Angel Diaz MD Palpitations (Primary Dx); SVT (supraventricular tachycardia); Attention deficit hyperactivity disorder (ADHD), unspecified ADHD type; Memory lossfrom Last 3 Months Family History Medical HistoryRelationNameCommentsHypertensionFatherHypertensionMotherRelation NameStatusCommentsFatherAliveMotherAlive Social History Tobacco UseTypesPacks/DayYears UsedDateSmoking Tobacco: Every DayCigarettes Smokeless Tobacco: Current Tobacco Cessation:Ready to Q uit: Not Asked; Counseling Given: Not Answered Comments:Vape had reduced vape since SVT only vapes 2-3 times per day Alcohol UseStandard Drinks/WeekCommentsYes0 (1 standard drink = 0.6 oz pure alcohol)occasionalCommentsUnknownSex and Gender InformationValueDate RecordedSex Assigned at JdtmdKmcxrf81/08/2025 2:06 PM EDTLegal SexFemale 05/19/2025 2:33 PM EDTGender EgdkanflUsdzzd56/08/2025 2:06 PM EDTSexual OrientationHeterosexual or Imwhofgl85/08/2025 2:06 PM EDT Last Filed Vital Signs Vital SignReadingTime TakenCommentsBlood Ovanmnzy35/5910 3:30 PM EDT Tqwbk921407/10/2025 3:30 PM EDTTemperature--Respiratory Yjtq7654 3:30 PM EDTOxygen Oonbbtoeww69%07/10/2025 3:30 PM EDTInhaled Oxygen Concentration-- Cmohij24.3 kg (122 lb)06/20/2025 2:50 PM EBRVarvgo338.6 cm (5' 4 )06/20/2025 2:50 PM EDTBody Mass Index20.9406/20/2025 2:50 PM EDT Plan of Treatment DateTypeDepartmentCare Team (Latest Contact Info)Fhbxskaihkz57/20/2025 10:20 AM ESTFollow-Up [facility] [address] [place] [address] Corona Galarza, [employer] OPERATOR [address] [place] [address] Health MaintenanceDue DateLast DoneCommentsDepression Vonnqzmtn83/03/2004 Varicella Vaccines (1 of 2 - 13+ 2-dose series)2004Pneumococcal Vaccine: Pediatrics (0 to 5 Years) and At-Risk Patients (6 to 64 Years) (1 of 2 - PCV) 2010Pap Smear2012HPV Vaccines (1 - 3-dose SCDM series)2018 Cervical Cancer Bngfijsjl73/03/2022HPV/Psfxtr892COVID-19 Vaccine ( - season)2025Influenza Vaccine (#1)2025dult Wuwrwwh6506/10/2028 06/10/2018Zoster Vaccines (1 of 2)2041HIB LzzjhdunRrbjzzmwb96/15/1993, 02/06/1993, 04/13/1992, Additional history existsIPV VaccinesCompleted 11/02/1996, 06/12/1993, 04/13/1992, Additional history existsHepatitis B NkdrdnpoItonltlrw99/02/1997, 11/02/1996, 07/14/1996Meningococcal B VaccineAged OutNo longer eligible based on patient's age to complete this topicMeningococcal VaccineAged OutNo longer eligible based on patient's age to complete this topic Rotavirus VaccinesAged OutNo longer eligible based on patient's age to complete this topic Procedures Procedure NamePriorityDate/TimeAssociated DiagnosisCommentsECG 12-LEADSTAT 07/10/2025 2:21 PM EDT ELECTROPHYSIOLOGY OIWOBJIMXJtpuafb01/13/2025 1:58 PM EDT SVT (supraventricular tachycardia) ACTIVATED CLOTTING SSVVPyiatgd79/13/2025 1:54 PM EDT ECG 12-VXKCWytobjy14/13/2025 10:54 AM EDT POCT , CHEMLHxhqruh54/13/2025 10:03 AM EDT COMPLETE TRANSTHORACIC ECHO (TTE) W/WO IMAGING AGENT, STRAIN, 3D, BUBBLE STUDY Ltgyvvm7906/09/2025 11:05 AM EDTfrom Last 3 Months Results * ECG 12 lead (07/10/2025 2:21 PM EDT) Only the most recent of2 resultswithin the time period is included. ComponentValueRef RangeTest MethodAnalysis TimePerformed AtPathologist Signature Ventricular Cjpk05PMIQT MUSEAtrial Mmcu21ZRNHB MUSEPR Oyxqdgyi157spGL MUSEQRS WJNJEUCY59szFU MUSEQT Bsxzssqv590niMD MUSEQTC CALCULATION(BAZETT)460msGE MUSEP Nedb83cwctiezKA MUSER-Vfjo97wqxaftqPD MUSET Wave Qjwy73lhrpewvFR MUSESpecimen (Source)Anatomical Location / LateralityCollection Method / VolumeCollection TimeReceived Time07/10/2025 2:16 PM EDT1 2:42 PM EDT Impressions GE MUSE - 07/10/2025 2:42 PM EDT Normal sinus rhythm Incomplete right bundle branch block Borderline ECG When compared with ECG of 10-JUL-2025 10:16, No significant change was found Confirmed by Kadeem Montano ([id number]) on 07/10/2025 2:42:02 PM Narrative Procedure Note Kadeem Montano MD - 07/10/2025 IMPRESSION: Normal sinus rhythm Incomplete right bundle branch block Borderline ECG When compared with ECG of 10-JUL-2025 10:16, No significant change was found Confirmed by Kadeem Montano ([id number]) on 07/10/2025 2:42:02 PM Authorizing ProviderResult TypeResult StatusPajeanie ARAUJO ORDERABLESFinal ResultPerforming OrganizationAddressCity/State/ZIP CodePhone Number GE MUSE * ELECTROPHYSIOLOGY PROCEDURE (07/10/2025 1:58 PM EDT)Anatomical Region LateralityModalityOtherSpecimen (Source)Anatomical Location / Laterality Collection Method / VolumeCollection TimeReceived Time Narrative 07/10/2025 10:31 PM EDT Table formatting from the original result was not included. EP STUDY AND AVNRT ABLATION PROCEDURE NOTE DATE OF PROCEDURE: 07/10/2025 PERFORMING PHYSICIAN: Dr. Josh Varela INDICATIONS FOR PROCEDURE: 1. SVT CONSENT: Patient LOCATION: EP Lab PROCEDURAL SEDATION: ??Versed and Fentanyl. Moderate sedation was administered by [...] Details of catheters placed as follows. RFV: ??6Fx2 CRD2 to His, Quad to RV, 8Fx [...] overdrive pacing was performed with VAHV response. ??Atrial pacing at 280ms terminated tachycardia. So at [...] during ablation of the slow pathway potential. ??Subsequently AEST was repeated and showed no tachyinduction [...] x 3 hrs Josh Varela MD Cardiac Electrophysiology Authorizing ProviderResult TypeResult StatusJosh Varela [facility] ELECTROPHYSIOLOGY PROCEDURESFinal Result * (ABNORMAL) Activated clotting time (07/10/2025 1:54 PM EDT)ComponentValueRef RangeTest MethodAnalysis TimePerformed AtPathologist SignatureActivated Clotting Qncj358(H)82 - 152 07/10/2025 1:55 PM EDTNEW [facility] Specimen (Source)Anatomical Location / LateralityCollection Method / Volume Collection TimeReceived TimeBloodVenous blood specimen / Kueoahx6507/10/2025 1:54 PM EDT1 1:55 PM EDT Narrative Authorizing ProviderResult TypeResult StatusJosh Varela MDLAB POINT OF CARE TEST DOCKED DEVICE UNSOLICITED RESULTSFinal ResultPerforming OrganizationAddress City/State/ZIP CodePhone Number [facility] ([facility]) [address] [place] [address] * POCT , urine manually resulted (07/10/2025 10:03 AM EDT)Component ValueRef RangeTest MethodAnalysis TimePerformed AtPathologist SignaturePreg Test, UrNegativeQC Pass/FailPassedQC LOT #[id number] Expiration Date11/10/26 Specimen (Source)Anatomical Location / LateralityCollection Method / Volume Collection TimeReceived RcuhKixra21/13/2025 10:03 AM EDT Narrative Authorizing ProviderResult TypeResult StatusPaul Avery MDPOINT OF CARE TEST ENTER/EDIT ORDERABLESFinal Result * Complete Echo (TTE) w/wo Imaging Agent, Strain, 3D, Bubble Study (06/09/2025 11:05 AM EDT)Anatomical RegionLateralityModalityUltrasound Narrative Authorizing ProviderResult TypeResult StatusHistorical Provider MDCV ECHO PROCEDURESFinal Result from Last 3 Months Insurance Care Teams Team MemberRelationshipSpecialtyStart DateEnd Warner Yao MD [address] [facility] [address] [place] [phone] PCP - GeneralFamily Medicine06/07/25
--- OUTSIDE RECORDS SUMMARY | 2025-08-03 15:22 | XMS_ITS | Patient Health Record ---
Author Organization The [facility] in [place] Address [address] [place] [address] Care Team Providers Care Manager Credit Risk Name Role Phone Matheus Yao Primary Care Provider Allergies Allergen (clinical drug ingredient) Drug/Non Drug Allergy documented on EMR Reaction Allergy Type Onset Date Status sulfamethoxazole / trimethoprim Bactrim joint pain Drug Allergy ActivePenicillinUnknownDrug AllergyActive Results Component Value Reference Range Notes CBC AUTO DIFF Reviewed date:05/22/2025 04:00:55 PM Interpretation: Performing Lab: Notes/Report: [facility] , White Blood Count 4.7 4.0-11.0 10 3/uL Red Blood Count4.304.20-5.40 10 6/sRMinxkzyufr78.612.0-16.0 g/zAJzxpuixitw00.6 36.0-48.0 %Mean Corpuscular Jghfll19.481.0-99.0 fLMean Corpuscular Hemoglobin 29.326.7-34.0 pgMean Corpuscular HGB Conc33.529.9-35.2 g/dLRed Cell Distribution Width12.911.0-15.0 %Platelet Gnsuh508469-959 10 3/uLMean Platelet Blbcpa92.89.5- 13.5 fLNeutrophils Percent Auto65.143.0-75.0 %Lymphocytes Percent Auto28.520.5- 60.0 %Monocytes Percent Auto5.41.7-12.0 %Eosinophils Percent Auto0.20.9-7.0 % Basophils Percent Auto0.60.2-2.0 %Immature Granulocytes Pct Auto0.20.0-0.5 % Neutrophils Absolute Auto3.01.4-6.5 10 3/uLLymphocytes Absolute Auto1.31.2-3.8 10 3/uLMonocytes Absolute Auto0.30.3-0.8 10 3/uLEosinophils Absolute Auto0.00.0- 0.7 10 3/uLBasophils Absolute Auto0.00.0-0.1 10 3/uLImmature Granulocytes Abs Auto0.010.00-0.03 10 3/uLPerforming Lab:see noteML - [facility] LB PROF 14(COMP METB) Reviewed date:05/22/2025 04:00:55 PM Interpretation: Performing Lab: Notes/Report: [facility] ,Ysdzas247729-847 mmol/LPotassium4.33.5-5.1 mmol/VXrxofuib03575-002 mmol/LCarbon Abcdutp79.521.0-32.0 mmol/LAnion Gap12.2Eisxakv7653-161 mg/dLBlood Urea Nitrogen 11.07.0-18.0 mg/dLCreatinine0.650.55-1.02 mg/dLEstimated GFR ( Elicia>60 >=60 mL/min/1.73m 2Estimated GFR (Non- Maryana>60>=60 mL/min/1.73m 2BUN Creatinine Ratio16.8Opesolu3.68.5-10.1 mg/dLBilirubin Total0.20.2-1.0 mg/dL Aspartate Amino Qmcjjseztkc6568-44 U/LAlanine Hrkxzuzudrsmffeb9495-94 U/L Alkaline Eecuqrjuzut6265-171 U/LTotal Protein6.96.4-8.2 g/dLAlbumin Level3.73.4- 5.0 g/dLGlobulin3.2Albumin Globulin Ratio1.2Performing Lab:see noteML - [facility] LBXR acute abdomen series Reviewed date:08/01/2025 02:07:24 PM Interpretation: Performing Lab: Notes/Report: Source Facility: [facility]-[address] [place] [address] [place] [address] XRay Report Signed Patient: STARLA MATT MR#: [id number] : 1990 Acct:[id number] Age/Sex: 34 / F ADM Date: 08/01/25 Loc: RAD Attending Dr: Misha Yao M.D. Ordering Physician: Misha Yao M.D. Date of Service: 08/01/25 Procedure(s): XR acute abdomen series Accession Number(s): [id number] cc: Misha Yao M.D. [place] [id number] Patient Name: STARLA MATT MRN: [id number] date: 1990 Sex: F Assigned Patient Location: [facility] Current Patient Location: RAD Accession/Order Number: [id number] Exam Date: 08/01/2025 10:30 Report Date: 08/01/2025 11:02 At the request of: MISHA YAO MD Procedure: XR acute abdomen series ACUTE ABDOMEN SERIES WITH PA CHEST: CLINICAL HISTORY: Nausea, vomiting, diarrhea and loss of appetite for the past month. Gastroenteritis K52.9 COMPARISON: CT abdomen 01/20/2024 The chest film shows no acute cardiopulmonary findings. There is subtle dextroscoliotic curvature. Supine and upright views of the abdomen and pelvis demonstrate air within the stomach. Mild air and stool are visualized within the colon. There is no small bowel dilatation, free air or air-fluid levels. No soft tissue masses or abnormal calcifications are seen. The bony structures are intact. XR/XR acute abdomen series IMPRESSION: NO ACUTE PLAIN FILM FINDINGS. Impression dictated by: Shelly Hannah M.D. 08/01/2025 11:02 AM Dictation Location: [place] [address] Electronically authenticated by: [id number] Y Date: 08/01/2025 11:02 Dictated By: Shelly Hannah M.D. Signed By: 08/01/255 DD/ 01 TD/TT: Medical Office Professional Instructor:MAGNESIUM Reviewed date:05/19/2025 12:45:49 PM Interpretation: Performing Lab: Notes/Report: [facility] ,Magnesium1.81.8-2.4 mg/dLPerforming Lab:see noteML - [facility] LB PROF CHEM 8 (BAS METB) Reviewed date:05/19/2025 12:45:49 PM Interpretation: Performing Lab: Notes/Report: [facility] ,Varnxf654553-977 mmol/LPotassium3.33.5-5.1 mmol/VAkneidjq57914-026 mmol/LCarbon Pxnfktk61.021.0-32.0 mmol/LAnion Gap18.5Jvtkhgp15818-597 mg/dLBlood Urea Nitrogen8.07.0-18.0 mg/dLCreatinine0.880.55-1.02 mg/dLEstimated GFR ( Elicia>60>=60 mL/min/1.73m 2Estimated GFR (Non- Maryana>60>=60 mL/min/1.73m 2BUN Creatinine Ratio9.6Acxngeb3.68.5-10.1 mg/dLPerforming Lab:see noteML - [facility] LBTSH Reviewed date:05/19/2025 12:45:49 PM Interpretation: Performing Lab: Notes/Report: [facility] ,Thyroid Stimulating Hormone2.2150.358-3.740 uIU/mLPerforming Lab:see note - [facility] LBCBC no Diff (Hemogram) Reviewed date:05/19/2025 12:45:49 PM Interpretation: Performing Lab: Notes/Report: [facility] ,White Blood Count6.94.0-11.0 10 3/uLRed Blood Count4.894.20-5.40 10 6/uL Coblnkkrcf30.512.0-16.0 g/xUZrmnpyocpx00.036.0-48.0 %Mean Corpuscular Askdug06.9 81.0-99.0 fLMean Corpuscular Qnwlzlxuft11.726.7-34.0 pgMean Corpuscular HGB Conc 34.529.9-35.2 g/dLRed Cell Distribution Width12.611.0-15.0 %Platelet Yekzo734 150-450 10 3/uLMean Platelet Tkqmsb75.09.5-13.5 fLPerforming Lab:see note - [facility] LBHCG Qualitative* Reviewed date:05/19/2025 12:45:49 PM Interpretation: Performing Lab: Notes/Report: [facility] ,HCG QualitativeNEGATIVENEGATIVEPerforming Lab:see noteML - [facility] LBECG 12 lead Reviewed date:05/21/2025 11:12:30 AM Interpretation: Performing Lab: Notes/Report: Source Facility: [facility]-[address] [place] [address] [place] [address] Electrocardiograph Report Signed Patient: STARLA MATT MR#: [id number] : 1990 Acct:[id number] Age/Sex: 34 / F ADM Date: 05/19/25 Loc: ER Attending Dr: Ordering Physician: Danilo Gregory Date of Service: 05/19/25 Procedure(s): ECG 12 lead Accession Number(s): [id number] cc: [facility] Test Date: 2025-05-19 Pat Name: STARLA MATT Department: Room: - 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 Signed By: 05/19/25 1755 DD/ 0825 TD/TT: Medical Office Professional Instructor:ECG 12 lead Reviewed date:05/22/2025 04:00:55 PM Interpretation: Performing Lab: Notes/Report: Source Facility: [facility]-[address] [place] [address] [place] [address] Electrocardiograph Report Signed Patient: STARLA MATT MR#: [id number] : 1990 Acct:[id number] Age/Sex: 34 / F ADM Date: 05/19/25 Loc: ER Attending Dr: Ordering Physician: Danilo Gregory Date of Service: 05/19/25 Procedure(s): ECG 12 lead Accession Number(s): [id number] cc: [facility] Test Date: 2025-05-19 Pat Name: STARLA MATT Department: Room: - 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1990 Requested By: [id number] Order Number: [id number] Reading MD: AMADA WELLS Measurements Intervals [place] Rate: 112 P: 90 [place]: 96 QRS: 75 QRSD: 102 T: 66 QT: 360 QTc: 427 Interpretive Statements 1120 Sinus tachycardia 2210 Short [place] interval 2440 Incomplete right bundle branch block 9150 abnormal ECG Compared to ECG 05/19/2025 08:25:44 Short [place] interval now present Supraventricular tachycardia no longer present ST (T wave) deviation no longer present Indeterminate axis no longer present Right ventricular hypertrophy no longer present Electronically Signed On 05-22-2025 12:19:27 EDT by AMADA WELLS Dictated By: Amada Wells M.D. Signed By: 05/22/25 1219 DD/ 0833 TD/TT: Medical Office Professional Instructor:ECG 12 lead Reviewed date:05/22/2025 04:00:55 PM Interpretation: Performing Lab: Notes/Report: Source Facility: [place] [address] [place] [address] Electrocardiograph Report Signed Patient: STARLA MATT MR#: [id number] : 1990 Acct:[id number] Age/Sex: 34 / F ADM Date: 05/19/25 Loc: ER Attending Dr: Ordering Physician: Danilo Gregory Date of Service: 05/19/25 Procedure(s): ECG 12 lead Accession Number(s): [id number] cc: [facility] Test Date: 2025-05-19 Pat Name: STARLA MATT Department: Room: - 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 Signed By: 05/22/25 1219 DD/ 0902 TD/TT: Medical Office Professional Instructor:CAMELIA T3 Reviewed date:05/22/2025 04:00:55 PM Interpretation: Performing Lab: Notes/Report: [facility] Camelia T32.452.18-3.98 pg/mLPerforming Lab:see noteML - [facility] LB T4 Reviewed date:05/22/2025 04:00:55 PM Interpretation: Performing Lab: Notes/Report: [facility] ,T4 Thyroxine6.704.80-13.90 ug/dLPerforming Lab:see noteML - [facility] LBTSH Reviewed date:05/22/2025 04:00:55 PM Interpretation: Performing Lab: Notes/Report: [facility] ,Thyroid Stimulating Hormone1.2850.358-3.740 uIU/mLPerforming Lab:see noteML - [facility] LBCA echo doppler complete Reviewed date:06/11/2025 01:01:39 PM Interpretation: Performing Lab: Notes/Report: Source Facility: [facility]-[address] [place] [address] [place] [address] Cardiology Report Signed Patient: STARLA MATT MR#: [id number] : 1990 Acct:[id number] Age/Sex: 34 / F ADM Date: 06/09/25 Loc: CARD Attending Dr: Misha Yao M.D. Ordering Physician: Misha Yao M.D. Date of Service: 06/09/25 Procedure(s): CA echo doppler complete Accession Number(s): [id number] cc: Misha Yao M.D. Patient Name: STARLA MATT MR#: [id number] : 1990 Exam Date: 06/09/2025 Ordering Doctor: DR MISHA YAO . ECHOCARDIOGRAM REPORT PROCEDURE: CA ECHO DOPPLER COMPLETE INDICATIONS: Palpitations, chest pain, near syncope COMPARISON: None. DESCRIPTION: COMPLETE ECHOCARDIOGRAM Real-time transthoracic echocardiography with 2D, M-mode, spectral and color flow Doppler performed. QUALITY: Technical quality was good. LEFT VENTRICLE: Normal chamber size. Normal left ventricular wall thickness. Global left ventricular systolic function is normal. No wall motion abnormalities. Calculated left ventricular ejection fraction is 65%. LV EF: DIASTOLIC: Normal diastolic function. ATRIAL SEPTUM: Visually appears intact LEFT ATRIUM: Normal chamber size. RIGHT ATRIUM: Normal chamber size. RIGHT VENTRICLE: Normal chamber size. Normal right ventricular systolic function. TRICUSPID VALVE: Normal mobility and thickness. No stenosis with trace regurgitation. No evidence of pulmonary hypertension.RVSP 26mmHg. MITRAL VALVE: Normal mobility and thickness. No evidence of mitral valve stenosis. There is no mitral annular calcification. No mitral regurgitation. AORTIC VALVE: Normal trileaflet appearance. No visible sclerosis. Normal leaflet mobility. No evidence of aortic valve stenosis. No aortic regurgitation. AORTIC ROOT: Normal diameter and appearance. PULMONIC VALVE: Normal thickness and mobility. No stenosis. No regurgitation. PERICARDIUM: No evidence of pericardial effusion. IVC: Collapes with inspirations. Normal size. PLEURA: CONCLUSION: Normal left ventricle size, wall thickness, and systolic function without wall motion abnormalities, ejection fraction 65% Normal left ventricular diastolic function Normal right ventricular size and systolic function No significant valvular abnormalities Adult Echocardiography Procedure Report Left Ventricle LVEDD (3.7 - 5.6 cm): 4.63 cm LVESD (2.2 - 4.0 cm): 3.10 cm LVIVS thickness (0.6 - 1.2 cm): 0.54 cm LVPW thickness (0.5 - 1.0 cm): 0.62 cm e': 0.17 m/s E - e': 3.80 LVOT Max Gradient: 2.35 mm[Hg] LVOT Area (cm2): 0.77 m/s Peak Velocity (LVOT): 0.77 m/s Mean Velocity (LVOT): 0.52 m/s LVOT Diameter 2.14 cm Left Ventricular Ejection Fraction: 65.47 % Left Atrium LA Volume Index (2D A2C): 26.54 ml/m2 Left Atrium Systolic Dimension: 3.08 cm Mitral Valve MV E to A Ratio: 1.25 Mitral Valve A-Wave Peak Velocity: 0.53 m/s Mitral Valve E-Wave Peak Velocity: 0.66 m/s Right Ventricle RV Internal Diastolic Dimension: 3.07 cm Aorta AO Root Diam: 3.04 cm Ascending Ao Diam: 2.55 cm Aortic Valve AoV Area (Peak Norris): 3.16 cm2, 3.08 cm2 AoV Area (VTI): 2.93 cm2, 2.83 cm2 Peak Velocity(Antegrade Flow): 0.90 m/s, 0.85 m/s Peak Gradient(Antegrade Flow): 3.21 mm[Hg], 2.90 mm[Hg] Mean Velocity(Antegrade Flow): 0.64 m/s, 0.61 m/s Mean Gradient(Antegrade Flow): 1.84 mm[Hg], 1.70 mm[Hg] Velocity Time Integral: 19.26 cm, 17.93 cm Tricuspid Valve Peak Velocity (Regurgitant Flow): 2.00 m/s, 2.40 m/s Pulmonic Valve Mean Gradient: 1.29 mm[Hg], 0.93 mm[Hg], 1.15 mm[Hg] Mean Velocity: 0.53 m/s, 0.45 m/s, 0.50 m/s Peak Velocity: 0.74 m/s Peak Gradient: 2.44 mm[Hg], 1.85 mm[Hg], 2.22 mm[Hg] Right Atrium Right Atrium Systolic Pressure: 23.57 ml, 23.57 ml Dictated by: Jose Angel Diaz MD on 06/09/2025 at 18:16 Approved by: Jose Angel Diaz MD on 06/09/2025 at 18:23 Dictated By: Jose Angel Diaz M.D. Signed By: 06/09/251823 DD/ 22 TD/TT: Medical Office Professional Instructor:CBC AUTO DIFF Reviewed date:07/05/2025 05:53:38 PM Interpretation: Performing Lab: Notes/Report: [facility] ,White Blood Count5.44.0-11.0 10 3/uLRed Blood Count4.504.20-5.40 10 6/uL Cztmhaeymo92.512.0-16.0 g/aUUrsajucqco92.236.0-48.0 %Mean Corpuscular Btmlvd85.1 81.0-99.0 fLMean Corpuscular Ubjmrdajod19.026.7-34.0 pgMean Corpuscular HGB Conc 34.429.9-35.2 g/dLRed Cell Distribution Width13.111.0-15.0 %Platelet Msvjq028 150-450 10 3/uLMean Platelet Mtzvzc84.89.5-13.5 fLNeutrophils Percent Auto71.4 43.0-75.0 %Lymphocytes Percent Auto24.120.5-60.0 %Monocytes Percent Auto3.71.7- 12.0 %Eosinophils Percent Auto0.00.9-7.0 %Basophils Percent Auto0.60.2-2.0 % Immature Granulocytes Pct Auto0.20.0-0.5 %Neutrophils Absolute Auto3.91.4-6.5 10 3/uLLymphocytes Absolute Auto1.31.2-3.8 10 3/uLMonocytes Absolute Auto0.20.3- 0.8 10 3/uLEosinophils Absolute Auto0.00.0-0.7 10 3/uLBasophils Absolute Auto0.0 0.0-0.1 10 3/uLImmature Granulocytes Abs Auto0.010.00-0.03 10 3/uLPerforming Lab:see noteML - [facility] LBPROF CHEM 8 (BAS METB) Reviewed date:07/05/2025 05:53:38 PM Interpretation: Performing Lab: Notes/Report: [facility] ,Itsfyc875225-977 mmol/LPotassium4.03.5-5.1 mmol/GKbdxmhev70048-050 mmol/LCarbon Dtocfvq84.321.0-32.0 mmol/LAnion Gap11.5Rixgxwo4248-885 mg/dLBlood Urea Nitrogen9.07.0-18.0 mg/dLCreatinine0.400.55-1.02 mg/dLEstimated GFR ( Elicia>60>=60 mL/min/1.73m 2Estimated GFR (Non- Maryana>60>=60 mL/min/1.73m 2BUN Creatinine Ratio22.4Pzcpuax0.08.5-10.1 mg/dLPerforming Lab:see note - [facility] LBE coli Shiga Toxin EIA Reviewed date:08/03/2025 12:48:45 PM Interpretation: Performing Lab: Notes/Report: [facility] ,E coli Shiga Toxin EIASee Below For Report E coli Shiga Toxin EIA E coli Shiga Toxin EIANegative E coli Shiga Toxin EIA E coli Shiga Toxin EIAPerformed at: [facility] E coli Shiga Toxin EIA E coli Shiga Toxin [id number] [place], [place] [id number] E coli Shiga Toxin EIA E coli Shiga Toxin EIALab Director: Uzair Perea PhD, Phone: [phone] E coli Shiga Toxin EIA Performing Lab:see note - [facility] LB SEE REPORT - Nursing Service Director Id information not found for OBX-specific print producer legend Occult Blood* Reviewed date:08/01/2025 02:07:24 PM Interpretation: Performing Lab: Notes/Report: [facility] ,Occult BloodPositivePerforming Lab:see note - [facility] LBCOVID- 19, Flu A+B IH Reviewed date:05/19/2025 12:45:49 PM Interpretation: Performing Lab: Notes/Report: COVID-FLU A-FLU B-Control+ Reason For Referral No Information Medications Medication SIG (Take, Route, Frequency, Duration) Notes Start Date End Date Status Ciprofloxacin HCl 500 MG 1 tablet Orally every 1 2 hrs; Duration: 10 days 5ActiveVyvanse 10 MG1 capsule in the morning Orally Once a dayActive Hyoscyamine Sulfate 0.125 MG1-2 tabs SL SL every 4 hrs PRN abd pain07/31/2025 ActiveDicyclomine HCl 20 MG1 tablet Orally QID; Duration: 30 days08/03/2025 ActivepredniSONE 20 MG2 tablets Orally Once a day; Duration: 5 days08/03/2025 Active Social History Tobacco Use: Social History Observation Description Date Details (start date - stop date) Current Smoker NA - NA Tobacco Use/Smoking Question Answer Notes Patient is a current smoker Alcohol Screen (Audit-C) Question Answer Notes Did you have a drink containing alcohol in the p ast year? No Xokyao3XgwzuudsoktczuHyyhugyrWMYYW-O (Standard) Question Answer Notes Did you have a drink containing alcohol in the p ast year? No Npyvvt3YnwoieoulslbguBzhndlqk Problems Problem Type SNOMED Code ICD Code Onset Dates Problem Status W/U Status Risk Notes Problem Supraventricular tachycardia (64 02941) Supraventricular tachycardia (I47.1) ActiveconfirmedProblemChest pain (78091459)Chest pain (R07.9)Activeconfirmed ProblemMigraine variant with headache (disorder) (202741460)Migraine headache (G43.909)ActiveconfirmedProblemPalpitations (25096623)Palpitation (R00.2)Active confirmedProblemInsomnia (707387265)Insomnia (G47.00)ActiveconfirmedProblemNear syncope (033189926)Near syncope (R55)ActiveconfirmedProblemGastroenteritis (45363868)Gastroenteritis (K52.9)ActiveconfirmedProblemOpioid abuse (4612320) Narcotic abuse (F11.10)ActiveconfirmedProblemFibrocystic breast changes (50489241)Fibrocystic breast disease (N60.19)ActiveconfirmedProblemNonsustained paroxysmal supraventricular tachycardia (6141492591826)Supraventricular tachycardia, nonsustained (I47.9)Activeconfirmed Vital Signs Heart Rate 90 /min 05/22/2025 Pfetpygrnio18.0 degrees Qlofvcsons10/02/8523Xpbsvpbl37 %05/22/2025lood pressure vksccjikw24 mm Hg08/03/20254400Rwcqwu62 in08/03/2025lood pressure eqrsldun043 mm Hg08/03/20255505Hjyxws071.0 lbs110/03/2024BMI21.8 kg/m208/03/2025 Procedures Procedure Date Ordered Date Performed Result Body Sit e CARDIO Echocardiogram 05/22/2025 N/AHolter Monitor - 3 days up to 14 days05/22/2025N/A Encounters Encounter Location Date Provider Diagnosis [facility] [address] [place] [facility] [place] [address] 05/19/2025 Matheus [facility] [place] [facility] [place] [address] 05/19/2025[facility] [place] [facility] [place] [address] [place] [facility] [address]/[facility] [facility] [place] [address]/[facility] [place] [facility] [address]/[facility] [place] [facility] [address]/12/2024 [facility] [place] [facility] [address]/02/2025[facility] [place] [facility] [address]/02/2025[facility]oyGastroenter[facility] K52.9[facility] [place] [facility] [address]/oug Hoy Cough R05.9 ; Acute non-recurrent sinusitis, unspecified location J01.90 and Nasal congestion R09.81[facility] [place] [facility] [place] [address]/Doug HoyPalpitation R00.2 ; Chest pain R07.9 ; Near syncope R55 ; Supraventricular tachycardia I47.1 and Supraventricular tachycardia, nonsustained I47.9B[facility] [place] [facility] [place] [address]/11/2024Doug HoyGastroenteritis K52.9 Assessments Encounter Date Diagnosis (ICD Code) Assessment Notes Treatment Notes Treatment Clinical Notes Section Notes 08/29/2024 Cough (ICD-10 - R05.9) 05/22/2025Palpitation (ICD-10 - R00.2)05/22/2025hest pain (ICD-10 - R07.9) 07/31/2025Gastroenteritis (ICD-10 - K52.9)Get plenty of rest. Stay hydrated by sucking on ice chips or taking small sips of water. You can also try drinking clear soda, clear broths or noncaffeinated sports drinks. Stop eating solid foods for a few hours to let your stomach settle. East back into eating by eating bland, gqvt-mt-ulvcrd foods like crackers, toast, gelatin, bananas, rice and chicken. Try to avoid foods/substances including dairy products, caffeine, alcohol, nicotine and fatty or highly seasoned foods. Medications such as i buprofen or tylenol can make your stomach more upset, so use sparingly if at all. Also avoid patt-zdz-jbojyzc anti-diarrheal medications because it can make it harder for your body to eliminate the virus.08/03/2025Gastroenteritis (ICD-10 - K52.9)05/22/2025Near syncope (ICD-10 - R55)08/29/2024cute non-recurrent sinusitis, unspecified location (ICD-10 - J01.90)Rest and drink more liquids, especially water. You may use a humidifier or vaporizer to help keep the drainage moist. Qxdh-jhm-opytczq Nasal Saline may help the stuffy and runny nose. Use Ibuprofen and or Tylenol as needed for fever, chills, body aches or pain. Children 5 years old should not be given ouwd-rnp-lcgilvq cough and cold medications such as guaifenesin and dextromethorphan. If you're over age 5, you may try kjlk-mvq-ijhmmnj cold medications such as guaifenesin and dextromethorphan, or multi-symptom cold reliever such as Dayquil to help reduce the symptoms. Antibiotics have been prescribed. You should take these until completed and follow the directions. Antibiotics can sometimescause upset stomach, and in rare cases, serious allergic reactions or serious gastrointestinal problems. If you start having severe abdominal pain, severe vomiting, or bloody diarrhea, you should be reevaluated by your physician or urgent care immediately. Follow up with your Primary Care Provider or return to clinic if symptoms do not improve within 3-5 days08/29/2024Nasal congestion (ICD-10 - R09.81)05/22/2025Supraventricular tachycardia (ICD-10 - I47.1) 05/22/2025Supraventricular tachycardia, nonsustained (ICD-10 - I47.9) Plan Of Treatment Pending Test Test Name Order Date CULTURE, STOOL 07/31/2025 REDUCING SUBSTANCE, STOOL 07/31/2025 CARDIO Echocardiogram 05/22/2025 CALPROTECTIN STOOL 07/31/2025 Stool For Leukocytes 07/31/2025 C DIFF TOX PCR STOOL 07/31/2025 OCC BLD IMMUNOASSAY 07/31/2025 MRI BRAIN WO CON 05/22/2025 THYROID PANEL (T4/TSH/FREE T3) Holter Monitor - 3 days up to 14 days Insurance Providers Payer Name Payer Address Payer Phone Subscriber Number Group Number Insured Name Patient Relationship to Insured Coverage Start Date Coverage End Date [employer] [place] [employer] [address] [place] [address] [id number] Jack Matt - patient is the insured Medical (General) History Medical History History ICD Code 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
--- OUTSIDE RECORDS SUMMARY | 2025-08-03 15:22 | XMS_ITS | Clinical Summary ---
Author Organization [facility] Address [address] [place] [address] Care Team Providers Care Case Specialist Name Role Phone Unavailable Primary Care Provider Unavailabl e Allergies Active AllergyReactionsCriticalityNoted DateCommentsPenicillinsAnaphylaxis,Hives ,Shortness of breath,WvgewqeeLjzh90/30/2000 Medications MedicationSigDispense QuantityRefillsLast FilledStart DateEnd DateStatus magnesium oxide (Mag-Ox) 400 MG tablet Indications:Prescription refillTake 1 tablet (400 mg) by mouth Daily 30 tablet 604/10/600023/5Active valACYclovir (Valtrex) 500 MG tablet Indications:Prescription refillTake 1 tablet (500 mg) by mouth Daily 30 tablet 1109/509/6Active Active Problems ProblemNoted DateDiagnosed DateHormone nuovsjhhm20/09/2025Mood rctqjcl9010/06/2024 Memory loss10/06/2024 Encounters DateTypeDepartmentCare HgkvTqfbegxgtdu23/06/2025Refill [facility] [address] [place] [address] [place] [phone] Alberto Tobar, Prescription refillfrom Last 3 Months Family History Medical HistoryRelationNameCommentsBreast cancerFather's SisterUterine cancer MotherBreast cancerMother's SisterRelationNameStatusCommentsFather's Sister MotherMother's Sister Social History Tobacco UseTypesPacks/DayYears UsedDateSmoking Tobacco: Never Assessed CommentsUnknownSex and Gender InformationValueDate RecordedSex Assigned at Jazqga4708/05/2024 9:49 PM ESTLegal ZrsFcfklj22/07/2024 3:09 PM ESTGender Identity Hndrpk7708/05/2024 9:49 PM ESTSexual HvkuwpawaiaHojxluga11/08/2024 9:49 PM EST Last Filed Vital Signs Vital SignReadingTime TakenCommentsBlood Qforaweh662/6003 2:59 PM EST Pulse--Temperature--Respiratory Rate--Oxygen Saturation--Inhaled Oxygen Concentration--Wwrbqu51.1 kg (136 lb 12.8 oz)11/29/2024 2:59 PM ESTHeight--Body Mass Index-- Plan of Treatment DateTypeDepartmentCare Team (Latest Contact Info)Ijdzagqfppp67/11/2026 2:00 PM EDTOffice Visit [facility] [address] [place] [phone] Alberto Tobar DO [address] [place], [place] [phone] Insurance
--- NOTE | 2025-08-03 15:56 | ED.GENADUL1 ---
HPI HPI - General Adult General Chief complaint: Nausea/Vomiting/Diarrhea Stated complaint: DIARRHEA, VOMITING, Time Seen by Provider: 08/03/25 15:29 Source: patient Mode of arrival: walk-in History of Present Illness HPI narrative: The patient presents to the ER with 4 weeks history of diarrhea as well as vomiting. She mentioned that she have at least 5 episodes of diarrhea daily for the last couple weeks. And before that she was having 4 lesser extent the same complaint of diarrhea and vomiting The patient apparently presented to her primary care doctor who did the stool test for blood and she was not able to provide any stool test for C. difficile Patient denies any fever or chills She mentioned that sometimes that she felt that she had some blood on the stool and one of the time that she was having a bowel movement but no mucus in stool and no blood per rectum otherwise She had 2 roommates with her that have similar symptoms, and she was worried because her dog and her chickens had coccoid bacteria infection as per the [facility] Related Data Home Medications ?Medication ?Instructions ?Recorded ?Confirmed lisdexamfetamine 30 mg capsule mg 05/19/25 (Vyvanse) Previous Rx's ?Medication ?Instructions ?Recorded dicyclomine 20 mg tablet 20 mg PO QID PRN abdominal pain 08/03/25 #10 tabs famotidine 20 mg tablet (Pepcid) 20 mg PO BID #20 tabs 08/03/25 ondansetron 4 mg disintegrating 4 mg PO Q8H PRN nausea and 08/03/25 tablet vomiting 48 hours #10 tabs Allergies Allergy/AdvReac Type Severity Reaction Status Date / Time sulfamethoxazole (From Allergy Intermediate Joint Pain Verified 08/03/25 15:20 Bactrim) trimethoprim (From Bactrim) Allergy Intermediate Joint Pain Verified 08/03/25 15:20 Penicillins AdvReac Mild Unknown Verified 08/03/25 15:20 Opioid HPI Opioid Management Most Recent Opioid Data: Last Pain Scale 7 Today, 15:14 Review of Systems ROS Status of ROS 10 or more systems reviewed and unremarkable except as noted in history and below PFSH PFSH Social History Little interest or pleasure in doing things: not at all Feeling down, depressed, or hopeless: not at all Exam Narrative Exam Narrative: Nurses notes and vital signs reviewed and patient is not hypoxic. General: Well-appearing and in no apparent distress. Skin: Warm, dry, no pallor noted. No rash. Head: Normocephalic, atraumatic. Neck: Supple, non-tender. Cardiovascular: Regular Rate and Rhythm without murmur, gallop or rub. Respiratory: No accessory muscle use or respiratory distress. Lungs are clear to auscultation, no wheezing, rales or rhonchi Chest Wall: no tenderness Back: No midline thoracic or lumbar vertebral tenderness. No CVA tenderness Musculoskeletal: normal ROM, no calf or popliteal tenderness, no lower extremity edema/swelling GI: Abdomen is soft, non-distended. Normal bowel sounds. No masses appreciated. No tenderness to palpation. No rebound, guarding, or rigidity noted. Neurological: A&O x4. No cranial nerve dysfunction observed. No truncal ataxia. Moves all extremities. Sensation intact. Psychiatric: Cooperative and interactive. Normal mood and affect. Constitutional Vital Signs, click to edit/add: Last Vital Signs Pulse 75 08/03/25 15:14 Resp 16 08/03/25 15:14 BP 128/73 08/03/25 15:14 Pulse Ox 99 08/03/25 15:14 O2 Del Method Room Air 08/03/25 15:14 Course Vital Signs Vital signs: Vital Signs Pulse Rate 75 08/03/25 15:14 Respiratory Rate 16 08/03/25 15:14 Blood Pressure 128/73 08/03/25 15:14 Pulse Oximetry 99 08/03/25 15:14 Oxygen Delivery Method Room Air 08/03/25 15:14 Pulse Rate 75 08/03/25 15:14 Respiratory Rate 16 08/03/25 15:14 Blood Pressure 128/73 08/03/25 15:14 Pulse Oximetry 99 08/03/25 15:14 Oxygen Delivery Method Room Air 08/03/25 15:14 Medical Decision Making [facility] Narrative Medical decision making narrative: The patient CBC and chemistry showed no acute significant pathology I reviewed her stool test she did had some blood occult blood positive test done as outpatient she also had a pending Shigella and Salmonella test The patient right now blood workup showed no acute pathology and she did not have any fever or chills and she already mentioned that the diarrhea today is a lot better She was able to tolerate p.o. intake here in the ER and she was treated with Zofran Toradol and Bentyl in addition to the Pepcid With the fact that the patient symptoms are getting better we will just continue hydration and she was referred to gastroenterology as outpatient She was discharged with supportive care including Zofran and Pepcid and Bentyl The patient to follow-up with the primary care within 2 to 3 days and to come back to the ER in case of any worsening of the current symptoms or any new symptoms or concerns Lab Data Labs: Lab Results 08/03/25 Range/Units 15:49 WBC 3.3 L (4.0-11.0) 10^3/uL RBC 4.14 L (4.20-5.40) 10^6/uL Hgb 12.2 (12.0-16.0) g/dL Hct 35.7 L (36.0-48.0) % MCV 86.2 (81.0-99.0) fL MCH 29.5 (26.7-34.0) pg MCHC 34.2 (29.9-35.2) g/dL RDW 12.6 (11.0-15.0) % Plt Count 251 (150-450) 10^3/uL MPV 10.1 (9.5-13.5) fL Neut % (Auto) 51.4 (43.0-75.0) % Lymph % (Auto) 41.0 (20.5-60.0) % [place] % (Auto) 7.0 (1.7-12.0) % Eos % (Auto) 0.0 L (0.9-7.0) % Baso % (Auto) 0.6 (0.2-2.0) % Neut # (Auto) 1.7 (1.4-6.5) 10^3/uL Lymph # (Auto) 1.4 (1.2-3.8) 10^3/uL [place] # (Auto) 0.2 L (0.3-0.8) 10^3/uL Eos # (Auto) 0.0 (0.0-0.7) 10^3/uL Baso # (Auto) 0.0 (0.0-0.1) 10^3/uL Abs Immat Gran (auto) 0.00 (0.00-0.03) 10^3/uL Imm/Tot Granulo (auto) 0.0 (0.0-0.5) % Sodium 142 (136-145) mmol/L Potassium 3.5 (3.5-5.1) mmol/L Chloride 105 (98-107) mmol/L Carbon Dioxide 27.8 (21.0-32.0) mmol/L Anion Gap 12.7 BUN 11.0 (7.0-18.0) mg/dL Creatinine 0.44 L (0.55-1.02) mg/dL Est GFR ( Amer) >60 (>=60 mL/min/1.73m^2) Est GFR (Non-Af Amer) >60 (>=60 mL/min/1.73m^2) BUN/Creatinine Ratio 25.0 Glucose 81 (74-106) mg/dL Calcium 9.1 (8.5-10.1) mg/dL Total Bilirubin 0.2 (0.2-1.0) mg/dL AST 16 (15-37) U/L ALT 23 (14-59) U/L Alkaline Phosphatase 56 (46-116) U/L Total Protein 7.5 (6.4-8.2) g/dL Albumin 3.8 (3.4-5.0) g/dL Globulin 3.7 g/dL Albumin/Globulin Ratio 1.0 Serum HCG, Qual Negative (NEGATIVE) Discharge Plan Discharge Chief Complaint: Nausea/Vomiting/Diarrhea Clinical Impression: Diarrhea, Vomiting Patient Disposition: Home, Self-Care Time of Disposition Decision: 17:53 Condition: Good Prescriptions / Home Meds: New ondansetron 4 mg tablet,disintegrating 4 mg PO Q8H PRN (Reason: nausea and vomiting) 2 Days Qty: 10 0RF famotidine [Pepcid] 20 mg tablet 20 mg PO BID Qty: 20 0RF dicyclomine 20 mg tablet 20 mg PO QID PRN (Reason: abdominal pain) Qty: 10 0RF No Action lisdexamfetamine [Vyvanse] 30 mg capsule Print Language: Sami Instructions: Diet for Stomach Ulcers and Gastritis (ED) Referrals: ORLANDO GIVENS [Physician, Gastroenterology] - 1 week Warner Yao MD [Primary Care Provider, Family Practice] - 1 week
[2025-08-03 16:00] LABS: Hematocrit 35.7 % (36.0-48.0); Hemoglobin 12.2 g/dL (12.0-16.0); Immature Granulocytes Abs Auto 0.00 10^3/uL (0.00-0.03); Immature Granulocytes Pct Auto 0.0 % (0.0-0.5); Lymphocytes Absolute Auto 1.4 10^3/uL (1.2-3.8); Mean Corpuscular HGB Conc 34.2 g/dL (29.9-35.2); Mean Corpuscular Hemoglobin 29.5 pg (26.7-34.0); Mean Corpuscular Volume 86.2 fL (81.0-99.0); Platelet Count 251 10^3/uL (150-450); Red Blood Count 4.14 10^6/uL (4.20-5.40); White Blood Count 3.3 10^3/uL (4.0-11.0)
[2025-08-03] MEDS: 0.9 % SODIUM CHLORIDE 1,000 ML 1000 ML IV (16:00)
[2025-08-03 16:18] LABS: Alanine Aminotransferase 23 U/L (14-59); Albumin Globulin Ratio 1.0; Albumin Level 3.8 g/dL (3.4-5.0); Alkaline Phosphatase 56 U/L (46-116); Anion Gap 12.7; Aspartate Amino Transferase 16 U/L (15-37); Blood Urea Nitrogen 11.0 mg/dL (7.0-18.0); Calcium 9.1 mg/dL (8.5-10.1); Carbon Dioxide 27.8 mmol/L (21.0-32.0); Chloride 105 mmol/L (98-107); Estimated GFR (African America >60 (>=60 mL/min/1.73m^2); Estimated GFR (Non-African Ame >60 (>=60 mL/min/1.73m^2); Globulin 3.7 g/dL; Glucose 81 mg/dL (74-106); Potassium 3.5 mmol/L (3.5-5.1); Sodium 142 mmol/L (136-145); Total Protein 7.5 g/dL (6.4-8.2)
[2025-08-03] MEDS: KETOROLAC TROMETHAMINE 30 MG/ML VIAL 15 MG IVP (16:52)
[2025-08-03] MEDS: FAMOTIDINE/PF 20 MG/2 ML VIAL IV (16:55)
[2025-08-03] MEDS: DICYCLOMINE HCL 20 MG/2 ML VIAL IM (16:56)
[2025-08-03 18:05] VITALS: BP 98/59; PULSE 78; O2SAT 96
--- NOTE | 2025-08-03 18:09 | PC.NURSE ---
Reports that she has been dealing with nausea, vomiting, and diarrhea for approx 1 month. reports that she did take in some ill chickens they were found to have a parasite. her dog started also having vomiting and diarrhea. reports she waas seen here for stool studies and started on antibiotic and given zofran. patient states that dr. georges sent her to ED for fluids but it was later found she was supposed to be in the infusion center at 3pm. patient agreeable to staying in ED>
== END 2025-08-03 18:16 | disposition home or self-care (01) ==
PROVIDERS: Emergency Provider Emergency Medicine; PCP Family Medicine
DX: R19.7 Diarrhea, unspecified (principal); R11.10 Vomiting, unspecified
CPT/HCPCS: 36415; 80053; 84703; 85025; 96361; 96372; 96374; 96375; 99284; J0500; J1885; J2405; J3490

== ENCOUNTER 2025-08-04 12:29 | Outpatient (RCR) | payer OTHER, SELFPAY ==
[2025-08-04 12:43] VITALS: BP 109/76; PULSE 83; TEMP 36.6; O2SAT 96
[2025-08-04] MEDS: 0.9 % SODIUM CHLORIDE 2,000 ML 1000 ML IV (12:49)
== END 2025-08-27 23:59 | disposition home or self-care (01) ==
LOC: INF 12:29
PROVIDERS: PCP Family Medicine; Visit Provider Family Medicine
DX: E86.0 Dehydration (principal)
CPT/HCPCS: 96360; 96361